=== PATIENT | male | born 1945 | race Caucasian/White ===

== ENCOUNTER 2018-08-19 17:16 | Inpatient (IN) | payer MEDICARE ==
[~2018-08-19] VITALS: Ht 182.9 cm; Wt 86.2 kg
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
[2018-08-19 18:08] LABS: BASO # 0.1 x10^3/uL (0.0-0.2); BASO % 1 % (0-3); EOS # 0.1 x10^3/uL (0.0-0.7); EOS % 1 % (0-3); HEMATOCRIT 44.3 % (39.0-53.0); LYMPH # 1.6 x10^3/uL (1.0-4.8); LYMPH % 19 % (24-48); MEAN CORPUSCULAR HEMOGLOBIN 30 pg (25-35); MEAN CORPUSCULAR HGB CONC 34 g/dL (31-37); MEAN CORPUSCULAR VOLUME 89 fL (79-100); MONO # 0.7 x10^3/uL (0.0-1.1); MONO % 8 % (0-9); NEUT # 6.1 x10^3uL (1.8-7.7); NEUT % 71 % (31-73); PLATELET COUNT 290 x10^3/uL (140-400); RED BLOOD COUNT 4.99 x10^6/uL (4.30-5.70); RED CELL DISTRIBUTION WIDTH 13.3 % (11.5-14.5); WHITE BLOOD COUNT 8.6 x10^3/uL (4.0-11.0)
[2018-08-19 18:24] LABS: ALBUMIN/GLOBULIN RATIO 1.1 (1.0-1.7); CALCIUM 9.5 mg/dL (8.5-10.1); CREATININE 2.9 mg/dL (0.7-1.3); GFR 21.6; MAGNESIUM 2.6 mg/dL (1.8-2.4); POTASSIUM 3.6 mmol/L (3.5-5.1); TOTAL BILIRUBIN 0.4 mg/dL (0.2-1.0); TOTAL PROTEIN 7.6 g/dL (6.4-8.2)
[2018-08-19 18:51] LABS: CLARITY,URINE CLOUDY; COLOR,URINE YELLOW; GLUCOSE,URINE NEG (NEG)
[2018-08-19 18:52] LABS: BACTERIA,URINE 0 /HPF (0-FEW); BILIRUBIN,URINE NEG (NEG); NITRITE,URINE NEG (NEG); RBC,URINE OCC /HPF (0-2); SQUAMOUS EPITHELIAL CELL,UR OCC /LPF; UROBILINOGEN,URINE 0.2 mg/dL (0.2 mg/dL); WBC,URINE 0 /HPF (0-4)
[2018-08-19] MEDS ORDERED: ACETAMINOPHEN 325 MG TABLET PO PRN (20:15)
[2018-08-19] MEDS ORDERED: MAGNESIUM HYDROXIDE 2,400 MG/30 ML ORAL.SUSP. PO PRN (20:15)
[2018-08-19] MEDS ORDERED: MAG HYDROX/AL HYDROX/SIMETH 30 ML ORAL.SUSP PO PRN (20:15)
[2018-08-19] MEDS ORDERED: METHYL SALICYLATE/MENTHOL TOPICAL OINTMENT 29GM TUBE. TP PRN (20:15)
[2018-08-19 21:41] VITALS: BP 92/64
[2018-08-19] MEDS ORDERED: TRIA1CAP3 PO (22:06)
[2018-08-19] MEDS ORDERED: MEMA10TA20 PO (22:06)
[2018-08-19] MEDS ORDERED: OMEG-168 PO (22:06)
[2018-08-19] MEDS ORDERED: CITA20TA9 PO (22:06)
[2018-08-19] MEDS ORDERED: AMLO10TA8 PO (22:06)
[2018-08-19] MEDS ORDERED: PANT40TA3 PO (22:06)
[2018-08-19] MEDS ORDERED: ALPR1TAB6 PO (22:06)
[2018-08-19] MEDS ORDERED: RISP0.5T24 PO (22:06)
[2018-08-19] MEDS ORDERED: MELO7.5T29 PO (22:06)
[2018-08-19] MEDS ORDERED: CHOL400D6 PO (22:06)
[2018-08-19] MEDS ORDERED: ZOLP5TAB PO (22:06)
[2018-08-19] MEDS ORDERED: DONE10TA61 PO (22:06)
[2018-08-19] MEDS ORDERED: LOSA100T14 PO (22:06)
[2018-08-19] MEDS ORDERED: ALPRAZolam 0.5 MG TABLET PO PRN (22:30)
[2018-08-19] MEDS: risperiDONE 0.5 MG TABLET. PO SCH (22:43)
[2018-08-20 06:36] VITALS: BP 114/73
[2018-08-20 08:12] LABS: BASO % 0 % (0-3); EOS # 0.2 x10^3/uL (0.0-0.7); EOS % 3 % (0-3); HEMATOCRIT 43.7 % (39.0-53.0); HEMOGLOBIN 14.7 g/dL (13.0-17.5); LYMPH # 1.8 x10^3/uL (1.0-4.8); LYMPH % 23 % (24-48); MEAN CORPUSCULAR HEMOGLOBIN 30 pg (25-35); MEAN CORPUSCULAR HGB CONC 34 g/dL (31-37); MEAN CORPUSCULAR VOLUME 89 fL (79-100); MONO # 0.7 x10^3/uL (0.0-1.1); MONO % 9 % (0-9); NEUT # 4.9 x10^3uL (1.8-7.7); NEUT % 64 % (31-73); PLATELET COUNT 258 x10^3/uL (140-400); RED CELL DISTRIBUTION WIDTH 13.4 % (11.5-14.5); WHITE BLOOD COUNT 7.6 x10^3/uL (4.0-11.0)
[2018-08-20 08:16] LABS: CALCIUM 9.1 mg/dL (8.5-10.1); CREATININE 2.7 mg/dL (0.7-1.3); GFR 23.4; POTASSIUM 3.9 mmol/L (3.5-5.1)
[2018-08-20] MEDS: amLODIPine BESYLATE 10 MG TABLET PO SCH (11:19)
[2018-08-20] MEDS: CITALOPRAM 20 MG TABLET. PO SCH (11:19)
[2018-08-20] MEDS: TRIAMTERENE/HCTZ 37.5/25MG TABLET. PO SCH (11:19)
[2018-08-20] MEDS: MEMANTINE 10 MG TABLET. PO SCH (11:19)
[2018-08-20] MEDS: PANTOPRAZOLE 40 MG TABLET. PO SCH (11:30)
[2018-08-20] MEDS: OMEGA-3 FATTY ACIDS/FISH OIL 1,000 MG CAPSULE. PO SCH (11:31)
[2018-08-20] MEDS: CHOLECALCIFEROL (VITAMIN D3) 1,000 UNIT TABLET PO SCH (11:31)
[2018-08-20 13:36] LABS: THYROID STIM HORMONE (TSH) 1.74 uIU/mL (0.358-3.740)
[2018-08-20 16:20] VITALS: BP 109/74
[2018-08-20] MEDS ORDERED: risperiDONE 0.5 MG TABLET. PO PRN (17:15)
[2018-08-20] MEDS: MELOXICAM 7.5 MG TABLET PO SCH ×2 (18:00→20:29)
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
[2018-08-20] MEDS: risperiDONE 1 MG TABLET. PO SCH (20:27)
[2018-08-20] MEDS: DIVALPROEX 125 MG CAP.SPRINK PO SCH ×2 (20:27→21:00)
[2018-08-20] MEDS: risperiDONE 0.5 MG TABLET. PO SCH (20:28)
[2018-08-20] MEDS: DONEPEZIL HCL 10 MG TABLET PO SCH ×2 (20:28→21:00)
[2018-08-20] MEDS: LOSARTAN 50 MG TABLET. PO SCH ×2 (20:29→21:00)
[2018-08-20] MEDS: ZOLPIDEM 5 MG TABLET. PO SCH (20:29)
[2018-08-20 21:07] LABS: THYROXINE 5.9 ug/dL (4.5-12.0)
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
[2018-08-21 01:07] LABS: HEMOGLOBIN A1C 5.5 % (4.8-5.6)
[2018-08-21] MEDS: MEMANTINE 10 MG TABLET. PO SCH (09:01)
[2018-08-21] MEDS: amLODIPine BESYLATE 10 MG TABLET PO SCH (09:01)
[2018-08-21] MEDS: TRIAMTERENE/HCTZ 37.5/25MG TABLET. PO SCH (09:01)
[2018-08-21] MEDS: OMEGA-3 FATTY ACIDS/FISH OIL 1,000 MG CAPSULE. PO SCH (09:01)
[2018-08-21] MEDS: CITALOPRAM 20 MG TABLET. PO SCH (09:01)
[2018-08-21] MEDS: PANTOPRAZOLE 40 MG TABLET. PO SCH (09:02)
[2018-08-21] MEDS: CHOLECALCIFEROL (VITAMIN D3) 1,000 UNIT TABLET PO SCH (09:02)
[2018-08-21] MEDS: risperiDONE 1 MG TABLET. PO SCH ×2 (09:02→19:16)
[2018-08-21 17:27] VITALS: BP 130/72
[2018-08-21] MEDS: MELOXICAM 7.5 MG TABLET PO SCH (19:01)
[2018-08-21] MEDS: risperiDONE 0.5 MG TABLET. PO SCH (19:15)
[2018-08-21] MEDS: DONEPEZIL HCL 10 MG TABLET PO SCH (19:15)
[2018-08-21 19:16] VITALS: BP 130/72
[2018-08-21] MEDS: ZOLPIDEM 5 MG TABLET. PO SCH (19:16)
[2018-08-21] MEDS: DIVALPROEX 125 MG CAP.SPRINK PO SCH (19:16)
[2018-08-21] MEDS: LOSARTAN 50 MG TABLET. PO SCH (19:16)
[2018-08-22] MEDS ORDERED: MAG355OR17 PO (06:47)
[2018-08-22] MEDS ORDERED: ACET325T9 PO (06:47)
[2018-08-22] MEDS ORDERED: MAGN2400 PO (06:48)
[2018-08-22] MEDS ORDERED: METH29OI TP (06:48)
[2018-08-22] MEDS ORDERED: DIVA125C2 PO (06:51)
[2018-08-22] MEDS ORDERED: RISP1TAB43 PO (06:52)
[2018-08-22] MEDS ORDERED: RISP0.5T24 PO (06:53)
[2018-08-22 07:24] LABS: BASO # 0.1 x10^3/uL (0.0-0.2); BASO % 0 % (0-3); EOS % 0 % (0-3); HEMATOCRIT 41.1 % (39.0-53.0); HEMOGLOBIN 13.7 g/dL (13.0-17.5); LYMPH # 1.2 x10^3/uL (1.0-4.8); LYMPH % 6 % (24-48); MEAN CORPUSCULAR HEMOGLOBIN 30 pg (25-35); MEAN CORPUSCULAR HGB CONC 33 g/dL (31-37); MEAN CORPUSCULAR VOLUME 89 fL (79-100); MONO # 1.2 x10^3/uL (0.0-1.1); MONO % 6 % (0-9); NEUT # 17.2 x10^3uL (1.8-7.7); NEUT % 88 % (31-73); PLATELET COUNT 236 x10^3/uL (140-400); RED CELL DISTRIBUTION WIDTH 12.9 % (11.5-14.5); WHITE BLOOD COUNT 19.6 x10^3/uL (4.0-11.0)
[2018-08-22 07:43] LABS: ALBUMIN 3.6 g/dL (3.4-5.0); ALBUMIN/GLOBULIN RATIO 1.1 (1.0-1.7); CALCIUM 9.2 mg/dL (8.5-10.1); CREATININE 3.2 mg/dL (0.7-1.3); GFR 19.2; POTASSIUM 4.3 mmol/L (3.5-5.1); TOTAL BILIRUBIN 0.6 mg/dL (0.2-1.0); TOTAL PROTEIN 6.8 g/dL (6.4-8.2)
[2018-08-22 09:26] LABS: % BANDS 2 % (0-9); % BASOS 1 % (0-3); % LYMPHS 10 % (24-48); % MONOS 7 % (0-10); % SEGS 80 % (35-66); PLT ESTIMATE ADEQUATE (ADEQUATE)
--- NOTE | 2018-08-22 12:38 | EKG ---
[address] [address] Test Date: 2018-08-19 Test Time: 17:47:46 Pat Name: INDERJIT PIERRE Department: Room: [address] [place] [address] Gender: M Snipper: DIANE : 1945 Requested By: SINCERE CHAWLA Order Number: [id number] Reading MD: Giovanni Cruz MD Measurements Intervals Beggs Rate: 74 P: 43 NH: 170 QRS: -1 QRSD: 84 T: 29 QT: 378 QTc: 425 Interpretive Statements SINUS RHYTHM Electronically Signed On 08-27-2018 23:23:12 CDT by Giovanni Cruz MD
[2018-08-22] MEDS ORDERED: VANCOMYCIN PER PHARMACY MC PRN (14:00)
[2018-08-22] MEDS ORDERED: PIP/TAZO PER PHARMACY MC PRN (14:00)
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
[2018-09-23] MEDS ORDERED: AMOX500C PO (14:13)
[2018-09-23] MEDS ORDERED: VANC125C3 PO (14:13)
[2018-09-23] MEDS ORDERED: LORA-254 PO (14:13)
== END 2018-08-22 06:45 | disposition short-term general hospital (02) | DRG 56 ==
LOC: EDBD → ER 17:16 → GEROPSY 19:28
PROVIDERS: ADMIT Psychiatry & Neurology Psychiatry; ATTEND Psychiatry & Neurology Psychiatry
DX: G30.9 Alzheimer's disease, unspecified (principal); N17.0 Acute kidney failure with tubular necrosis; F02.81 Dementia in other diseases classified elsewhere, unspecified severity, with behavioral disturbance; R94.4 Abnormal results of kidney function studies; N18.3 Chronic kidney disease, stage 3 (moderate); E78.00 Pure hypercholesterolemia, unspecified; E78.5 Hyperlipidemia, unspecified; F41.1 Generalized anxiety disorder; I12.9 Hypertensive chronic kidney disease with stage 1 through stage 4 chronic kidney disease, or unspecified chronic kidney disease; R32 Unspecified urinary incontinence; Z79.899 Other long term (current) drug therapy; K21.9 Gastro-esophageal reflux disease without esophagitis; F32.9 Major depressive disorder, single episode, unspecified; G89.29 Other chronic pain
CPT/HCPCS: 36415; 80048; 80053; 80061; 81001; 82306; 82550; 83036; 83540; 83550; 83605; 83735; 84436; 84443; 84480; 84484; 85007; 85025; 86592; 93005; P9612; 99285-25

== ENCOUNTER 2018-08-22 06:50 | Inpatient (IN) | payer MEDICARE ==
[~2018-08-22] VITALS: Ht 182.9 cm; Wt 95.8 kg
[2018-08-22 06:34] VITALS: BP 103/68
[~2018-08-22 06:50] MED LIST: ACET325T9 PO; ALPR1TAB6 PO; AMLO10TA8 PO; CHOL400D6 PO; CITA20TA9 PO; DONE10TA61 PO; LOSA100T14 PO; MAG355OR17 PO; MAGN2400 PO; MELO7.5T29 PO; MEMA10TA20 PO; METH29OI TP; OMEG-168 PO; PANT40TA3 PO; RISP0.5T24 PO; TRIA1CAP3 PO; ZOLP5TAB PO
[2018-08-22] MEDS ORDERED: DIVA125C2 PO (06:51)
[2018-08-22] MEDS ORDERED: RISP1TAB43 PO (06:52)
[2018-08-22] MEDS ORDERED: RISP0.5T24 PO (06:53)
[2018-08-22] MEDS: IV NORMAL SALINE 1,000ML 1,000 ML IV SCH ×2 (08:23→15:02)
[2018-08-22 10:05] VITALS: BP 95/76
[2018-08-22] MEDS ORDERED: MAG HYDROX/AL HYDROX/SIMETH 30 ML ORAL.SUSP PO PRN (14:15)
[2018-08-22] MEDS ORDERED: METHYL SALICYLATE/MENTHOL TOPICAL OINTMENT 29GM TUBE. TP PRN (14:15)
[2018-08-22] MEDS ORDERED: MAGNESIUM HYDROXIDE 2,400 MG/30 ML ORAL.SUSP. PO PRN (14:15)
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
--- NOTE | 2018-08-22 14:27 | RAD ---
EXAM: Chest, single view. HISTORY: Mental status changes. Leukocytosis. COMPARISON: None. FINDINGS: A frontal view of the chest is obtained. There is mild increased interstitial opacity. There is lingular atelectasis or scarring. There is no consolidation, pleural effusion or pneumothorax. The heart is normal in size. IMPRESSION: 1. Mild increased interstitial opacity without jessi congestion or consolidated infiltrate. 2. Suspected linear lingular atelectasis or scarring. Electronically signed by: Janet Cifuentes MD (08/22/2018 2:25 PM) [id number]
[2018-08-22 14:55] LABS: CREATININE 2.7 mg/dL (0.7-1.3); GFR 23.4; POTASSIUM 4.1 mmol/L (3.5-5.1)
[2018-08-22] MEDS ORDERED: VANCOMYCIN 2 GM in IV NORMAL SALINE 500ML 500 ML IV ONE (15:00)
[2018-08-22 15:04] VITALS: BP 98/64
[2018-08-22] MEDS ORDERED: VANCOMYCIN PER PHARMACY MC PRN (15:45)
[2018-08-22] MEDS ORDERED: PIP/TAZO PER PHARMACY MC PRN (15:45)
[2018-08-22] MEDS: diphenhydrAMINE 50 MG/ML VIAL IVP PRN (17:47)
[2018-08-22] MEDS: PIPERACILLIN/TAZOBACTAM 2.25 GM in IV NORMAL SALINE 50ML 50 ML IV SCH (18:03)
[2018-08-22 19:45] VITALS: BP 122/75
[2018-08-22] MEDS ORDERED: DIVALPROEX 125 MG CAP.SPRINK PO SCH (21:00)
[2018-08-22] MEDS: LACTOBACILLUS RHAMNOSUS GG 1 CAPSULE. PO SCH (21:02)
[2018-08-22] MEDS: DONEPEZIL HCL 10 MG TABLET PO SCH (21:02)
[2018-08-22] MEDS: ACETAMINOPHEN 325 MG TABLET PO PRN (21:02)
[2018-08-23] MEDS: IV NORMAL SALINE 1,000ML 1,000 ML IV SCH ×4 (00:28→17:51)
[2018-08-23] MEDS: PIPERACILLIN/TAZOBACTAM 2.25 GM in IV NORMAL SALINE 50ML 50 ML IV SCH ×5 (00:29→23:44)
[2018-08-23 06:11] VITALS: BP 123/78
[2018-08-23 06:26] LABS: HEMATOCRIT 36.1 % (39.0-53.0); HEMOGLOBIN 12.2 g/dL (13.0-17.5); RED BLOOD COUNT 4.05 x10^6/uL (4.30-5.70); RED CELL DISTRIBUTION WIDTH 13.5 % (11.5-14.5); WHITE BLOOD COUNT 14.9 x10^3/uL (4.0-11.0)
[2018-08-23 06:33] LABS: ALBUMIN 2.8 g/dL (3.4-5.0); ALBUMIN/GLOBULIN RATIO 0.9 (1.0-1.7); CALCIUM 8.5 mg/dL (8.5-10.1); GFR 33.1; POTASSIUM 3.8 mmol/L (3.5-5.1); TOTAL BILIRUBIN 0.5 mg/dL (0.2-1.0)
[2018-08-23] MEDS ORDERED: CITALOPRAM 20 MG TABLET. PO SCH (09:00)
[2018-08-23] MEDS: MEMANTINE 10 MG TABLET. PO SCH (10:32)
[2018-08-23] MEDS: OMEGA-3 FATTY ACIDS/FISH OIL 1,000 MG CAPSULE. PO SCH (10:32)
[2018-08-23] MEDS: PANTOPRAZOLE 40 MG TABLET. PO SCH (10:32)
[2018-08-23] MEDS: CHOLECALCIFEROL (VITAMIN D3) 1,000 UNIT TABLET PO SCH (10:32)
[2018-08-23] MEDS: LACTOBACILLUS RHAMNOSUS GG 1 CAPSULE. PO SCH ×2 (10:32→20:07)
[2018-08-23 11:22] VITALS: BP 121/83
[2018-08-23 14:38] VITALS: BP 124/72
[2018-08-23] MEDS ORDERED: VANCOMYCIN 1.25 GM in IV NORMAL SALINE 250ML 250 ML IV SCH (15:00)
[2018-08-23 19:35] VITALS: BP 117/76
[2018-08-23] MEDS: ACETAMINOPHEN 325 MG TABLET PO PRN (20:07)
[2018-08-23] MEDS: DONEPEZIL HCL 10 MG TABLET PO SCH (20:08)
--- NOTE | 2018-08-23 21:57 | PN ---
DATE: 08/23/2018 SUBJECTIVE: The patient is resting flat in bed, in no apparent distress. He is awake, alert, but he does not really respond, very combative and aggressive. Sometimes cursing and refusing to talk. The nursing staff stated that his came and fed him this afternoon; however, he spent most of time in bed, although he is more than capable of walking. His lab work showed that his white cell count is down from 20,000-14,900. His chemistry also showed that his kidney function is improving. In fact, his creatinine came down from 3.2 when he was at [facility] down to 2 mg this morning. So far, his blood culture is still pending. We cannot get a urine sample because he is very combative and aggressive. ASSESSMENT AND PLAN: 1. Sepsis with systolic pressure only 70 mmHg, leukocytosis. 2. Acute on chronic kidney injury. Creatinine has risen from 2-3.2. We will continue with the IV fluid, continue with IV antibiotic empirically. I will await result of culture and sensitivity. I will also arrange for him to have SCDs for DVT prophylaxis and consult physical and occupational therapy to evaluate and treat. He has been heavily sedated and I did cut down his risperidone as well as Depakote. KIP LEDESMA MD DR: BULMARO/carter JOB#: [id number] / [id number]
[2018-08-24] MEDS: IV NORMAL SALINE 1,000ML 1,000 ML IV SCH ×4 (03:30→20:00)
[2018-08-24] MEDS: PIPERACILLIN/TAZOBACTAM 2.25 GM in IV NORMAL SALINE 50ML 50 ML IV SCH (05:16)
[2018-08-24 06:23] VITALS: BP 150/78
[2018-08-24 06:47] LABS: HEMATOCRIT 36.8 % (39.0-53.0); HEMOGLOBIN 12.6 g/dL (13.0-17.5); RED BLOOD COUNT 4.13 x10^6/uL (4.30-5.70); RED CELL DISTRIBUTION WIDTH 13.3 % (11.5-14.5); WHITE BLOOD COUNT 7.9 x10^3/uL (4.0-11.0)
[2018-08-24 06:53] LABS: CALCIUM 8.5 mg/dL (8.5-10.1); CREATININE 1.6 mg/dL (0.7-1.3); GFR 42.8; POTASSIUM 3.7 mmol/L (3.5-5.1)
[2018-08-24] MEDS: OMEGA-3 FATTY ACIDS/FISH OIL 1,000 MG CAPSULE. PO SCH (08:16)
[2018-08-24] MEDS: CHOLECALCIFEROL (VITAMIN D3) 1,000 UNIT TABLET PO SCH (08:16)
[2018-08-24] MEDS: LACTOBACILLUS RHAMNOSUS GG 1 CAPSULE. PO SCH ×2 (08:16→19:28)
[2018-08-24] MEDS: PANTOPRAZOLE 40 MG TABLET. PO SCH (08:16)
[2018-08-24] MEDS: MEMANTINE 10 MG TABLET. PO SCH (08:16)
[2018-08-24 10:49] VITALS: BP 148/82
[2018-08-24] MEDS: PIPERACILLIN/TAZOBACTAM 3.375 GM in IV NORMAL SALINE 50ML 50 ML IV SCH ×2 (11:38→19:28)
[2018-08-24 14:28] VITALS: BP 150/88
[2018-08-24] MEDS ORDERED: POLYVINYL ALCOHOL/POVIDONE/PF OPHTH SOLUTION DROPERETTE. OU PRN (14:30)
--- NOTE | 2018-08-24 17:32 | PDOC ---
PROGRESS NOTES Diagnosis DIAGNOSIS Sirs versus sepsis Acute on chronic kidney disease Acute encephalopathy Assessment Sirs versus dehydration-improving -We have not been able to obtain a urine sample yet -Placing condom catheter for sample -Labs in the morning -Continue antibiotics -Continue IV fluids AK I on CKD -Continue IV fluids -Continue checking BMP in the morning Acute encephalopathy with Severe schizophrenia-appears to be improving -Continue monitoring -Continue psych meds PT/OT Prophylaxis Lovenox Subjective The patient currently is laying in bed, not very interactive, does not appear in distress. Objective Vital Signs Date Time Temp Pulse Resp B/P (MAP) Pulse Ox O2 Delivery O2 Flow Rate FiO2 08/24/18 14:28 97.5 84 20 150/88 (108) 99 Room Air Intake and Output 08/24/18 06:59 Intake Total 2715.61 ml Balance 2715.61 ml Intake Oral 920 ml IV Total 1795.61 ml # Voids 5 # Bowel Movements 1 Physical Exam Awake, not oriented, not very interactive PERRLA, EOMI Regular rate and rhythm Clear to auscultation bilateral Positive bowel sounds, nontender, nondistended Cranial nerves appear intact Review of Relevant I have reviewed the following items hung (where applicable) has been applied. Labs Laboratory Tests Test 08/22/18 21:00 08/23/18 06:03 08/24/18 06:14 Nasal Screen MRSA (PCR) Negative (Negative) White Blood Count 14.9 x10^3/uL (4.0-11.0) 7.9 x10^3/uL (4.0-11.0) Red Blood Count 4.05 x10^6/uL (4.30-5.70) 4.13 x10^6/uL (4.30-5.70) Hemoglobin 12.2 g/dL (13.0-17.5) 12.6 g/dL (13.0-17.5) Hematocrit 36.1 % (39.0-53.0) 36.8 % (39.0-53.0) Mean Corpuscular Volume 89 fL (79-100) 89 fL (79-100) Mean Corpuscular Hemoglobin 30 pg (25-35) 30 pg (25-35) Mean Corpuscular Hemoglobin Concent 34 g/dL (31-37) 34 g/dL (31-37) Red Cell Distribution Width 13.5 % (11.5-14.5) 13.3 % (11.5-14.5) Platelet Count 210 x10^3/uL (140-400) 219 x10^3/uL (140-400) Sodium Level 139 mmol/L (136-145) 140 mmol/L (136-145) Potassium Level 3.8 mmol/L (3.5-5.1) 3.7 mmol/L (3.5-5.1) Chloride Level 105 mmol/L (98-107) 105 mmol/L (98-107) Carbon Dioxide Level 27 mmol/L (21-32) 28 mmol/L (21-32) Anion Gap 7 (6-14) 7 (6-14) Blood Urea Nitrogen 30 mg/dL (8-26) 17 mg/dL (8-26) Creatinine 2.0 mg/dL (0.7-1.3) 1.6 mg/dL (0.7-1.3) Estimated GFR (Cockcroft-Gault) 33.1 42.8 BUN/Creatinine Ratio 15 (6-20) Glucose Level 99 mg/dL (70-99) 92 mg/dL (70-99) Calcium Level 8.5 mg/dL (8.5-10.1) 8.5 mg/dL (8.5-10.1) Total Bilirubin 0.5 mg/dL (0.2-1.0) Aspartate Amino Transf (AST/SGOT) 21 U/L (15-37) Alanine Aminotransferase (ALT/SGPT) 16 U/L (16-63) Alkaline Phosphatase 67 U/L (46-116) Total Protein 6.0 g/dL (6.4-8.2) Albumin 2.8 g/dL (3.4-5.0) Albumin/Globulin Ratio 0.9 (1.0-1.7) Microbiology 08/22/18 Blood Culture - Preliminary, Resulted NO GROWTH AFTER 2 DAYS... Medications Current Medications Sodium Chloride 1,000 ml @ 150 mls/hr Q6H40M IV Last administered on at 11:38; Start 08/22/18 at 08:00 Acetaminophen (Tylenol) 650 mg PRN Q6HRS PRN PO PAIN / TEMP Last administered on 08/23/18at 20:07; Start 08/22/18 at 14:15 Citalopram Hydrobromide (CeleXA) 20 mg DAILY PO ; Start 08/23/18 at 09:00; Stop 08/23/18 at 09:45; Status DC Multi-Ingredient Ointment (Analgesic [place]) 1 geraldo QIDPRN PRN TP MUSCLE PAIN; Start 08/22/18 at 14:15 Vitamin D (Vitamin D3) 500 unit DAILY PO Last administered on 08/24/18at 08:16; Start 08/23/18 at 09:00 Divalproex Sodium (Depakote Sprinkles) 500 mg HS PO ; Start 08/22/18 at 21:00; Stop 08/22/18 at 21:00; Status DC Donepezil HCl (Aricept) 10 mg HS PO Last administered on 08/23/18at 20:08; Start 08/22/18 at 21:00 Al Hydroxide/Mg Hydroxide (Mylanta Plus Xs) 15 ml QIDPRN PRN PO DYSPEPSIA; Start 08/22/18 at 14:15 Magnesium Hydroxide (Milk Of Magnesia) 2,400 mg PRN QHS PRN PO CONSTIPATION; Start 08/22/18 at 14:15 Memantine (Namenda) 10 mg DAILY PO Last administered on 08/24/18at 08:16; Start 08/23/18 at 09:00 Fish Oil (Fish Oil) 1,000 mg DAILY PO Last administered on 08/24/18at 08:16; Start 08/23/18 at 09:00 Pantoprazole Sodium (Protonix) 40 mg DAILY PO Last administered on 08/24/18at 08 :16; Start 08/23/18 at 09:00 Vancomycin HCl 2 gm/Sodium Chloride 500 ml @ 250 mls/hr 1X ONCE IV Last administered on 08/22/18at 15:03; Start 08/22/18 at 15:00; Stop 08/22/18 at 16:59 ; Status DC Piperacillin Sod/ Tazobactam Sod 2.25 gm/Sodium Chloride 50 ml @ 100 mls/hr Q6HRS IV Last administered on 08/24/18at 05:16; Start 08/22/18 at 18:00; Stop at 09:41; Status DC Lactobacillus Rhamnosus (Culturelle) 1 cap BID PO Last administered on at 08:16; Start 08/22/18 at 21:00 Vancomycin HCl 1.25 gm/Sodium Chloride 250 ml @ 167 mls/hr Q24H IV ; Start at 15:00; Stop 08/23/18 at 15:00; Status DC Vancomycin HCl (Vancomycin Trough Level) 1 each 1X ONCE MC ; Start 08/24/18 at 14:30; Stop 08/24/18 at 14:30; Status DC Vancomycin HCl (Vanco Per Pharmacy) 1 each PRN DAILY PRN MC SEE COMMENTS Last administered on 08/22/18at 15:39; Start 08/22/18 at 15:45; Stop 08/23/18 at 09:54 ; Status DC Piperacillin Sod/ Tazobactam Sod (Zosyn Per Pharmacy) 1 each PRN DAILY PRN MC SEE COMMENTS Last administered on 08/22/18at 15:39; Start 08/22/18 at 15:45 Diphenhydramine HCl (Benadryl) 25 mg PRN Q6HRS PRN IVP ITCHING Last administered on 08/22/18at 17:47; Start 08/22/18 at 17:45 Linezolid 300 ml @ 300 mls/hr Q12H IV Last administered on 08/24/18at 09:38; Start 08/23/18 at 10:00 Olanzapine (ZyPREXA IM) 2.5 mg PRN Q4HRS PRN IM AGITATION; Start 08/23/18 at 19 :00 Piperacillin Sod/ Tazobactam Sod 3.375 gm/Sodium Chloride 50 ml @ 100 mls/hr Q6HRS IV Last administered on 08/24/18at 11:38; Start 08/24/18 at 12:00 Artificial Tears (Refresh Classic) 1 drop TID PRN OU DRY EYE; Start 08/24/18 at 14:30 Active Scripts Active Reported Risperdal (Risperidone) 0.5 Mg Tablet 0.5 Mg PO PRN Q6HRS PRN Risperdal (Risperidone) 1 Mg Tablet 1 Mg PO BID Depakote Sprinkle (Divalproex Sodium) 125 Mg Cap.sprink 500 Mg PO HS Analgesic Fyffe (Methyl Salicylate/Menthol) 28 Gm Oint...g. 1 Geraldo TP QIDPRN PRN Milk Of Magnesia (Magnesium Hydroxide) 2,400 Mg/10 Ml Oral.susp 2,400 Mg PO HS PRN Advanced Antacid Liquid (Mag Hydrox/Al Hydrox/Simeth) 355 Ml Oral.susp 15 Ml PO QIDPRN PRN Tylenol (Acetaminophen) 325 Mg Tablet 2 Tab PO PRN Q6HRS PRN Vitamin D (Cholecalciferol (Vitamin D3)) 400 Unit/1 Ml Drops 400 Unit PO DAILY Triamterene-Hctz 37.5-25 Mg Cp (Triamterene/Hydrochlorothiazid) 1 Each Capsule 1 Each PO DAILY Risperdal (Risperidone) 0.5 Mg Tablet 0.5 Mg PO QHS Protonix (Pantoprazole Sodium) 40 Mg Tablet.dr 40 Mg PO DAILY Memantine HCl 10 Mg Tablet 10 Mg PO DAILY Meloxicam 7.5 Mg Tablet 7.5 Mg PO QEVNG Losartan Potassium 100 Mg Tablet 100 Mg PO QHS Celexa (Citalopram Hydrobromide) 20 Mg Tablet 20 Mg PO DAILY Fish Oil 1,200 Mg Softgel ([place]-3S/Dha/Epa/Fish Oil) 1 Each Capsule 1 Each PO DAILY Aricept (Donepezil Hcl) 10 Mg Tablet 10 Mg PO QHS Amlodipine Besylate 10 Mg Tablet 10 Mg PO DAILY Ambien (Zolpidem Tartrate) 5 Mg Tablet 5 Mg PO QHS Alprazolam 1 Mg Tablet 1 Mg PO PRN Q24HRS PRN Vitals/I & O Vital Sign - Last 24 Hours 08/23/18 08/23/18 08/24/18 08/24/18 19:35 20:00 00:16 06:23 Temp 97.8 98.5 Pulse 91 77 75 Resp 20 20 B/P (MAP) 117/76 (90) 150/78 (102) Pulse Ox 99 98 O2 Delivery Room Air Room Air Room Air 08/24/18 08/24/18 08/24/18 09:00 10:49 14:28 Temp 97.7 97.5 Pulse 91 84 Resp 20 20 B/P (MAP) 148/82 (104) 150/88 (108) Pulse Ox 98 99 O2 Delivery Room Air Room Air Room Air Intake and Output 08/23/18 08/23/18 08/24/18 14:59 22:59 06:59 Intake Total 340 ml 2255.61 ml 120 ml Balance 340 ml 2255.61 ml 120 ml CRISTHIAN MEDELLIN MD Aug 24, 2018 17:32
[2018-08-24] MEDS: OLANZapine IM 10 MG VIAL. IM PRN (18:17)
[2018-08-24] MEDS: diphenhydrAMINE 50 MG/ML VIAL IVP PRN (19:23)
--- NOTE | 2018-08-24 19:23 | PN ---
DATE: 08/24/2018 SUBJECTIVE: The patient was seen today on the medical floor. The patient apparently was on the psych unit and he was sent here because of having hypotension. The patient unable to give much information since admission, he is constantly staring and almost nonverbal and staff reports that he has been combative with the staff. The patient is not able to follow directions. The patient also had an elevated white cell count of 20,000. His creatinine level dropped from 3.2 to 2 at this time. The patient was treated for sepsis and also for [id number] kidney injury. MEDICATIONS: The patient's current medications include olanzapine 2.5 mg q. 4 hours p.r.n., Namenda 10 mg daily, Aricept 10 mg at night. MENTAL STATUS EXAMINATION: The patient continues to be on 1:1. The patient is able to make eye contact, smiles, and when asked questions, he turns his face away and he does not know how to respond. The patient also appears to be responding to internal stimuli. He is not sure whether he has been having auditory hallucinations. The patient is nervous, restless, and having some blunting of affect. The patient gets upset when he is around people, "I don't know how to respond." ASSESSMENT: AXIS I: Neurocognitive disorder, most likely Alzheimer versus Lewy body. AXIS II: None. AXIS III: Hypertension, hyperlipidemia, gastroesophageal reflux disease, chronic kidney disease stage 3. PLAN: The patient will continue with the treatment on the medical floor. We will reevaluate whether he needs to be readmitted to the [facility]. Continue with the current medications. CHAIM BAUTISTA MD DR: BALJIT/carter JOB#: [id number] / [id number]
[2018-08-24] MEDS: DONEPEZIL HCL 10 MG TABLET PO SCH (19:29)
[2018-08-24 19:45] VITALS: BP 122/51
[2018-08-25] MEDS: PIPERACILLIN/TAZOBACTAM 3.375 GM in IV NORMAL SALINE 50ML 50 ML IV SCH ×4 (01:11→17:27)
[2018-08-25 05:31] VITALS: BP 152/85
[2018-08-25] MEDS: IV NORMAL SALINE 1,000ML 1,000 ML IV SCH ×4 (06:33→17:34)
[2018-08-25 07:21] LABS: CALCIUM 8.4 mg/dL (8.5-10.1); CREATININE 1.7 mg/dL (0.7-1.3); GFR 39.9; HEMATOCRIT 34.9 % (39.0-53.0); HEMOGLOBIN 11.8 g/dL (13.0-17.5); MAGNESIUM 1.8 mg/dL (1.8-2.4); POTASSIUM 3.7 mmol/L (3.5-5.1); RED BLOOD COUNT 3.93 x10^6/uL (4.30-5.70); RED CELL DISTRIBUTION WIDTH 13.2 % (11.5-14.5); WHITE BLOOD COUNT 7.1 x10^3/uL (4.0-11.0)
[2018-08-25] MEDS: OMEGA-3 FATTY ACIDS/FISH OIL 1,000 MG CAPSULE. PO SCH (09:25)
[2018-08-25] MEDS: CHOLECALCIFEROL (VITAMIN D3) 1,000 UNIT TABLET PO SCH (09:25)
[2018-08-25] MEDS: MEMANTINE 10 MG TABLET. PO SCH (09:26)
[2018-08-25] MEDS: LACTOBACILLUS RHAMNOSUS GG 1 CAPSULE. PO SCH ×2 (09:29→22:00)
[2018-08-25 11:00] VITALS: BP 145/83
--- NOTE | 2018-08-25 12:28 | PDOC ---
PROGRESS NOTES Diagnosis DRAGON Sirs versus dehydration-improving -We have not been able to obtain a urine sample yet -Labs in the morning -Continue antibiotics--likely can change to PO tomorrow -Continue IV fluids AK I on CKD---stable -Continue IV fluids Acute encephalopathy with Severe schizophrenia-appears to be improving -Continue monitoring -Continue psych meds PT/OT DISP- likely discharge back to [facility] tomorrow once able to take admission Prophylaxis Lovenox Subjective The patient currently is laying in bed, not very interactive, does not appear in distress. No F/C Objective Vital Signs Date Time Temp Pulse Resp B/P (MAP) Pulse Ox O2 Delivery O2 Flow Rate FiO2 08/25/18 05:31 77 20 152/85 (107) 94 Room Air 08/24/18 19:45 98.6 Intake and Output 08/25/18 06:59 Intake Total 6747.73 ml Balance 6747.73 ml Intake Oral 1360 ml IV Total 5387.73 ml # Voids 7 # Bowel Movements 1 Physical Exam Awake, not oriented, not very interactive PERRLA, EOMI Regular rate and rhythm Clear to auscultation bilateral Positive bowel sounds, nontender, nondistended Cranial nerves appear intact Review of Relevant I have reviewed the following items hung (where applicable) has been applied. Labs Laboratory Tests Test 08/24/18 06:14 08/25/18 06:50 White Blood Count 7.9 x10^3/uL (4.0-11.0) 7.1 x10^3/uL (4.0-11.0) Red Blood Count 4.13 x10^6/uL (4.30-5.70) 3.93 x10^6/uL (4.30-5.70) Hemoglobin 12.6 g/dL (13.0-17.5) 11.8 g/dL (13.0-17.5) Hematocrit 36.8 % (39.0-53.0) 34.9 % (39.0-53.0) Mean Corpuscular Volume 89 fL (79-100) 89 fL (79-100) Mean Corpuscular Hemoglobin 30 pg (25-35) 30 pg (25-35) Mean Corpuscular Hemoglobin Concent 34 g/dL (31-37) 34 g/dL (31-37) Red Cell Distribution Width 13.3 % (11.5-14.5) 13.2 % (11.5-14.5) Platelet Count 219 x10^3/uL (140-400) 257 x10^3/uL (140-400) Sodium Level 140 mmol/L (136-145) 142 mmol/L (136-145) Potassium Level 3.7 mmol/L (3.5-5.1) 3.7 mmol/L (3.5-5.1) Chloride Level 105 mmol/L (98-107) 109 mmol/L (98-107) Carbon Dioxide Level 28 mmol/L (21-32) 25 mmol/L (21-32) Anion Gap 7 (6-14) 8 (6-14) Blood Urea Nitrogen 17 mg/dL (8-26) 11 mg/dL (8-26) Creatinine 1.6 mg/dL (0.7-1.3) 1.7 mg/dL (0.7-1.3) Estimated GFR (Cockcroft-Gault) 42.8 39.9 Glucose Level 92 mg/dL (70-99) 89 mg/dL (70-99) Calcium Level 8.5 mg/dL (8.5-10.1) 8.4 mg/dL (8.5-10.1) Magnesium Level 1.8 mg/dL (1.8-2.4) Microbiology 08/22/18 Blood Culture - Preliminary, Resulted NO GROWTH AFTER 3 DAYS... Medications Current Medications Sodium Chloride 1,000 ml @ 150 mls/hr Q6H40M IV Last administered on at 06:33; Start 08/22/18 at 08:00 Acetaminophen (Tylenol) 650 mg PRN Q6HRS PRN PO PAIN / TEMP Last administered on 08/23/18at 20:07; Start 08/22/18 at 14:15 Citalopram Hydrobromide (CeleXA) 20 mg DAILY PO ; Start 08/23/18 at 09:00; Stop 08/23/18 at 09:45; Status DC Multi-Ingredient Ointment (Analgesic Delta) 1 geraldo QIDPRN PRN TP MUSCLE PAIN; Start 08/22/18 at 14:15 Vitamin D (Vitamin D3) 500 unit DAILY PO Last administered on 08/25/18at 09:25; Start 08/23/18 at 09:00 Divalproex Sodium (Depakote Sprinkles) 500 mg HS PO ; Start 08/22/18 at 21:00; Stop 08/22/18 at 21:00; Status DC Donepezil HCl (Aricept) 10 mg HS PO Last administered on 08/24/18at 19:29; Start 08/22/18 at 21:00 Al Hydroxide/Mg Hydroxide (Mylanta Plus Xs) 15 ml QIDPRN PRN PO DYSPEPSIA; Start 08/22/18 at 14:15 Magnesium Hydroxide (Milk Of Magnesia) 2,400 mg PRN QHS PRN PO CONSTIPATION; Start 08/22/18 at 14:15 Memantine (Namenda) 10 mg DAILY PO Last administered on 08/25/18at 09:26; Start 08/23/18 at 09:00 Fish Oil (Fish Oil) 1,000 mg DAILY PO Last administered on 08/25/18at 09:25; Start 08/23/18 at 09:00 Pantoprazole Sodium (Protonix) 40 mg DAILY PO Last administered on 08/24/18at 08 :16; Start 08/23/18 at 09:00; Stop 08/25/18 at 09:43; Status DC Vancomycin HCl 2 gm/Sodium Chloride 500 ml @ 250 mls/hr 1X ONCE IV Last administered on 08/22/18at 15:03; Start 08/22/18 at 15:00; Stop 08/22/18 at 16:59 ; Status DC Piperacillin Sod/ Tazobactam Sod 2.25 gm/Sodium Chloride 50 ml @ 100 mls/hr Q6HRS IV Last administered on 08/24/18at 05:16; Start 08/22/18 at 18:00; Stop at 09:41; Status DC Lactobacillus Rhamnosus (Culturelle) 1 cap BID PO Last administered on at 09:29; Start 08/22/18 at 21:00 Vancomycin HCl 1.25 gm/Sodium Chloride 250 ml @ 167 mls/hr Q24H IV ; Start at 15:00; Stop 08/23/18 at 15:00; Status DC Vancomycin HCl (Vancomycin Trough Level) 1 each 1X ONCE MC ; Start 08/24/18 at 14:30; Stop 08/24/18 at 14:30; Status DC Vancomycin HCl (Vanco Per Pharmacy) 1 each PRN DAILY PRN MC SEE COMMENTS Last administered on 08/22/18at 15:39; Start 08/22/18 at 15:45; Stop 08/23/18 at 09:54 ; Status DC Piperacillin Sod/ Tazobactam Sod (Zosyn Per Pharmacy) 1 each PRN DAILY PRN MC SEE COMMENTS Last administered on 08/22/18at 15:39; Start 08/22/18 at 15:45 Diphenhydramine HCl (Benadryl) 25 mg PRN Q6HRS PRN IVP ITCHING Last administered on 08/24/18at 19:23; Start 08/22/18 at 17:45 Linezolid 300 ml @ 300 mls/hr Q12H IV Last administered on 08/25/18at 10:00; Start 08/23/18 at 10:00 Olanzapine (ZyPREXA IM) 2.5 mg PRN Q4HRS PRN IM AGITATION Last administered on 08/24/18at 18:17; Start 08/23/18 at 19:00 Piperacillin Sod/ Tazobactam Sod 3.375 gm/Sodium Chloride 50 ml @ 100 mls/hr Q6HRS IV Last administered on 08/25/18at 12:12; Start 08/24/18 at 12:00 Artificial Tears (Refresh Classic) 1 drop TID PRN OU DRY EYE Last administered on 08/25/18at 09:27; Start 08/24/18 at 14:30 Lansoprazole (Prevacid) 30 mg DAILYAC PO ; Start 08/26/18 at 07:30 Active Scripts Active Reported Risperdal (Risperidone) 0.5 Mg Tablet 0.5 Mg PO PRN Q6HRS PRN Risperdal (Risperidone) 1 Mg Tablet 1 Mg PO BID Depakote Sprinkle (Divalproex Sodium) 125 Mg Cap.sprink 500 Mg PO HS Analgesic Delta (Methyl Salicylate/Menthol) 28 Gm Oint...g. 1 Geraldo TP QIDPRN PRN Milk Of Magnesia (Magnesium Hydroxide) 2,400 Mg/10 Ml Oral.susp 2,400 Mg PO HS PRN Advanced Antacid Liquid (Mag Hydrox/Al Hydrox/Simeth) 355 Ml Oral.susp 15 Ml PO QIDPRN PRN Tylenol (Acetaminophen) 325 Mg Tablet 2 Tab PO PRN Q6HRS PRN Vitamin D (Cholecalciferol (Vitamin D3)) 400 Unit/1 Ml Drops 400 Unit PO DAILY Triamterene-Hctz 37.5-25 Mg Cp (Triamterene/Hydrochlorothiazid) 1 Each Capsule 1 Each PO DAILY Risperdal (Risperidone) 0.5 Mg Tablet 0.5 Mg PO QHS Protonix (Pantoprazole Sodium) 40 Mg Tablet.dr 40 Mg PO DAILY Memantine HCl 10 Mg Tablet 10 Mg PO DAILY Meloxicam 7.5 Mg Tablet 7.5 Mg PO QEVNG Losartan Potassium 100 Mg Tablet 100 Mg PO QHS Celexa (Citalopram Hydrobromide) 20 Mg Tablet 20 Mg PO DAILY Fish Oil 1,200 Mg Softgel ([place]-3S/Dha/Epa/Fish Oil) 1 Each Capsule 1 Each PO DAILY Aricept (Donepezil Hcl) 10 Mg Tablet 10 Mg PO QHS Amlodipine Besylate 10 Mg Tablet 10 Mg PO DAILY Ambien (Zolpidem Tartrate) 5 Mg Tablet 5 Mg PO QHS Alprazolam 1 Mg Tablet 1 Mg PO PRN Q24HRS PRN Vitals/I & O Vital Sign - Last 24 Hours 08/24/18 08/24/18 08/24/18 08/25/18 14:28 19:45 20:00 05:31 Temp 97.5 98.6 Pulse 84 84 77 Resp 20 20 20 B/P (MAP) 150/88 (108) 122/51 (74) 152/85 (107) Pulse Ox 99 99 94 O2 Delivery Room Air Room Air Room Air Room Air Intake and Output 08/24/18 08/24/18 08/25/18 14:59 22:59 06:59 Intake Total 2090 ml 620 ml 4037.73 ml Balance 2090 ml 620 ml 4037.73 ml CRISTHIAN MEDELLIN MD Aug 25, 2018 12:28
[2018-08-25 16:10] VITALS: BP 145/78
[2018-08-25] MEDS: diphenhydrAMINE 50 MG/ML VIAL IVP PRN ×2 (17:31→23:01)
[2018-08-25] MEDS ORDERED: HALOPERIDOL LACT 5 MG/ML VIAL. ONE (18:52)
[2018-08-25] MEDS ORDERED: HALOPERIDOL LACT 5 MG/ML VIAL. IM PRN (19:15)
[2018-08-25 20:06] VITALS: BP 145/82
[2018-08-25] MEDS: DONEPEZIL HCL 10 MG TABLET PO SCH (22:00)
[2018-08-25] MEDS: OLANZapine IM 10 MG VIAL. IM PRN (22:20)
[2018-08-26] MEDS: PIPERACILLIN/TAZOBACTAM 3.375 GM in IV NORMAL SALINE 50ML 50 ML IV SCH ×3 (01:35→11:29)
[2018-08-26] MEDS: CIPROFLOXACIN 0.3% OPHTH SOLUTION 2.5ML BOTTLE. OU SCH ×8 (02:06→14:00)
[2018-08-26 06:30] VITALS: BP 159/92
[2018-08-26] MEDS: IV NORMAL SALINE 1,000ML 1,000 ML IV SCH ×2 (06:36→11:30)
[2018-08-26] MEDS ORDERED: LANSOPRAZOLE 30 MG TAB.RAP.DR PO SCH (07:30)
[2018-08-26] MEDS: LACTOBACILLUS RHAMNOSUS GG 1 CAPSULE. PO SCH (11:24)
[2018-08-26] MEDS: CHOLECALCIFEROL (VITAMIN D3) 1,000 UNIT TABLET PO SCH (11:25)
[2018-08-26] MEDS: OMEGA-3 FATTY ACIDS/FISH OIL 1,000 MG CAPSULE. PO SCH (11:25)
[2018-08-26] MEDS: MEMANTINE 10 MG TABLET. PO SCH (11:25)
[2018-08-26 14:00] VITALS: BP 141/85
[2018-08-26] MEDS ORDERED: LACT1CAP2 PO (18:00)
[2018-08-26] MEDS ORDERED: CARB15DR3 EACHEYE (18:00)
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
== END 2018-08-26 14:24 | DRG 871 ==
LOC: 1 SOUTH 06:50 → EDBD 06:50 → 1 SOUTH 15:27
PROVIDERS: ADMIT Internal Medicine; ATTEND Family Medicine
DX: A41.9 Sepsis, unspecified organism (principal); N17.0 Acute kidney failure with tubular necrosis; E87.2 Acidosis; F02.81 Dementia in other diseases classified elsewhere, unspecified severity, with behavioral disturbance; G93.40 Encephalopathy, unspecified; I95.9 Hypotension, unspecified; N18.3 Chronic kidney disease, stage 3 (moderate); E78.5 Hyperlipidemia, unspecified; F20.9 Schizophrenia, unspecified; F41.1 Generalized anxiety disorder; G30.9 Alzheimer's disease, unspecified; I12.9 Hypertensive chronic kidney disease with stage 1 through stage 4 chronic kidney disease, or unspecified chronic kidney disease; K21.9 Gastro-esophageal reflux disease without esophagitis
CPT/HCPCS: 36415; 71045; 80048; 80053; 83605; 83735; 85027; 87040; 87641; J1200; J1630; J2020; J2543; J3370; J3490; J7040; J7030

== ENCOUNTER 2018-08-26 12:59 | Inpatient (IN) | payer MEDICARE ==
[~2018-08-26] VITALS: Ht 182.9 cm; Wt 104.1 kg
[~2018-08-26 12:59] MED LIST changes: +DIVA125C2 PO; +RISP1TAB43 PO
[2018-08-26 15:06] VITALS: BP 141/85
[2018-08-26 17:40] VITALS: BP 158/89
[2018-08-26] MEDS ORDERED: METHYL SALICYLATE/MENTHOL TOPICAL OINTMENT 29GM TUBE. TP PRN (17:45)
[2018-08-26] MEDS: CIPROFLOXACIN 0.3% OPHTH SOLUTION 2.5ML BOTTLE. OU SCH ×3 (18:00→22:00)
[2018-08-26] MEDS ORDERED: CARB15DR3 EACHEYE (18:00)
[2018-08-26] MEDS ORDERED: LACT1CAP2 PO (18:00)
[2018-08-26] MEDS ORDERED: MAGNESIUM HYDROXIDE 2,400 MG/30 ML ORAL.SUSP. PO PRN (18:15)
[2018-08-26] MEDS ORDERED: MAG HYDROX/AL HYDROX/SIMETH 30 ML ORAL.SUSP PO PRN ×2 (18:15)
[2018-08-26] MEDS ORDERED: POLYVINYL ALCOHOL/POVIDONE/PF OPHTH SOLUTION DROPERETTE. OU PRN (18:15)
[2018-08-26] MEDS: LACTOBACILLUS RHAMNOSUS GG 1 CAPSULE. PO SCH (20:45)
[2018-08-26] MEDS: DONEPEZIL HCL 10 MG TABLET PO SCH (20:45)
--- NOTE | 2018-08-26 23:06 | PDOC ---
Exam Note: Maurice Note: Please also refer to the separate dictated note~for this date of service dictated separately. Discussed the patient with Nursing staff reviewed the chart.~Reviewed interim history and current functioning. Reviewed vital signs,~ Labs/ Radiology~and current medications noted below. Continue current treatment with the changes noted in the dictated addendum note Assessment: Vital Signs: Vital Signs Date Time Temp Pulse Resp B/P (MAP) Pulse Ox O2 Delivery O2 Flow Rate FiO2 08/26/18 17:40 98.0 69 18 158/89 (112) 97 Current Medications: Meds: Current Medications Olanzapine (ZyPREXA ZYDIS) 2.5 mg PRN Q2HR PRN PO AGITATION/PSYCHOSIS; Start at 17:00 Ciprofloxacin 1 drop Q2HR OU ; Start 08/26/18 at 18:00 Acetaminophen (Tylenol) 650 mg PRN Q6HRS PRN PO PAIN / TEMP; Start 08/26/18 at 17:45 Multi-Ingredient Ointment (Analgesic Outlook) 1 geraldo QIDPRN PRN TP MUSCLE PAIN; Start 08/26/18 at 17:45 Donepezil HCl (Aricept) 10 mg QHS PO Last administered on 08/26/18at 20:45; Start 08/26/18 at 21:00 Al Hydroxide/Mg Hydroxide (Mylanta Plus Xs) 30 ml QIDPRN PRN PO DYSPEPSIA; Start 08/26/18 at 18:15; Stop 08/26/18 at 18:15; Status DC Memantine (Namenda) 10 mg DAILY PO ; Start 08/27/18 at 09:00 Artificial Tears (Refresh Classic) 1 drop PRN TID PRN OU DRY EYE; Start at 18:15 Vitamin D (Vitamin D3) 500 unit DAILY PO ; Start 08/27/18 at 09:00 Lactobacillus Rhamnosus (Culturelle) 1 cap BID PO Last administered on at 20:45; Start 08/26/18 at 21:00 Magnesium Hydroxide (Milk Of Magnesia) 2,400 mg PRN QHS PRN PO CONSTIPATION; Start 08/26/18 at 18:15 Fish Oil (Fish Oil) 1,000 mg DAILY PO ; Start 08/27/18 at 09:00 Pantoprazole Sodium (Protonix) 40 mg DAILY PO ; Start 08/27/18 at 09:00 Al Hydroxide/Mg Hydroxide (Mylanta Plus Xs) 15 ml QIDPRN PRN PO DYSPEPSIA; Start 08/26/18 at 18:15 Active Scripts Active Reported Refresh Optive Eye Drops (Carboxymethylcellulos/Glycerin) 15 Ml Drops 1 Drop EACHEYE TID PRN PRN Acidophilus (Lactobacillus Acidophilus) 1 Each Capsule 1 Each PO BID 7 Days Analgesic Outlook (Methyl Salicylate/Menthol) 28 Gm Oint...g. 1 Geraldo TP QIDPRN PRN Milk Of Magnesia (Magnesium Hydroxide) 2,400 Mg/10 Ml Oral.susp 2,400 Mg PO HS PRN Advanced Antacid Liquid (Mag Hydrox/Al Hydrox/Simeth) 355 Ml Oral.susp 15 Ml PO QIDPRN PRN Tylenol (Acetaminophen) 325 Mg Tablet 2 Tab PO PRN Q6HRS PRN Vitamin D (Cholecalciferol (Vitamin D3)) 400 Unit/1 Ml Drops 400 Unit PO DAILY Protonix (Pantoprazole Sodium) 40 Mg Tablet.dr 40 Mg PO DAILY Memantine HCl 10 Mg Tablet 10 Mg PO DAILY Fish Oil 1,200 Mg Softgel ([place]-3S/Dha/Epa/Fish Oil) 1 Each Capsule 1 Each PO DAILY Aricept (Donepezil Hcl) 10 Mg Tablet 10 Mg PO QHS I have reviewed the current psychotropics carefully including drug interactions. Risk benefit ratio favors no change other than as noted in my dictated progress note. Diagnosis: Problems: (1) Dehydration (2) Hypotension ZACK FERREIRA MD Aug 26, 2018 23:06
[2018-08-27] MEDS: CIPROFLOXACIN 0.3% OPHTH SOLUTION 2.5ML BOTTLE. OU SCH ×12 (02:00→22:00)
[2018-08-27 06:27] VITALS: BP 149/84
[2018-08-27] MEDS: PANTOPRAZOLE 40 MG TABLET. PO SCH (07:38)
[2018-08-27] MEDS: CHOLECALCIFEROL (VITAMIN D3) 1,000 UNIT TABLET PO SCH (07:38)
[2018-08-27] MEDS: OMEGA-3 FATTY ACIDS/FISH OIL 1,000 MG CAPSULE. PO SCH (07:38)
[2018-08-27] MEDS: MEMANTINE 10 MG TABLET. PO SCH (07:39)
[2018-08-27] MEDS: LACTOBACILLUS RHAMNOSUS GG 1 CAPSULE. PO SCH ×2 (07:39→19:51)
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
[2018-08-27 16:30] VITALS: BP 137/73
[2018-08-27] MEDS: DONEPEZIL HCL 10 MG TABLET PO SCH (19:51)
--- NOTE | 2018-08-27 22:59 | PDOC ---
Exam Note: Maurice Note: Please also refer to the separate dictated note~for this date of service dictated separately.~Patient seen individually. Discussed the patient with Nursing staff reviewed the chart.~Reviewed interim history and current functioning. Reviewed vital signs,~Labs/ Radiology~and current medications noted below. Continue current treatment with the changes noted in the dictated addendum note Assessment: Vital Signs: Vital Signs Date Time Temp Pulse Resp B/P (MAP) Pulse Ox O2 Delivery O2 Flow Rate FiO2 08/27/18 16:30 97.4 74 16 137/73 (94) 97 Room Air I&O Intake and Output 08/27/18 07:00 Intake Total 360 ml Balance 360 ml Intake Oral 360 ml Current Medications: Meds: Current Medications Olanzapine (ZyPREXA ZYDIS) 2.5 mg PRN Q2HR PRN PO AGITATION/PSYCHOSIS Last administered on 08/27/18 21:07; Start 08/26/18 at 17:00 Ciprofloxacin 1 drop Q2HR OU Last administered on 08/27/18 14:58; Start at 18:00 Acetaminophen (Tylenol) 650 mg PRN Q6HRS PRN PO PAIN / TEMP; Start 08/26/18 at 17:45 Multi-Ingredient Ointment (Analgesic [place]) 1 geraldo QIDPRN PRN TP MUSCLE PAIN; Start 08/26/18 at 17:45 Donepezil HCl (Aricept) 10 mg QHS PO Last administered on 08/27/18 19:51; Start 08/26/18 at 21:00 Al Hydroxide/Mg Hydroxide (Mylanta Plus Xs) 30 ml QIDPRN PRN PO DYSPEPSIA; Start 08/26/18 at 18:15; Stop 08/26/18 at 18:15; Status DC Memantine (Namenda) 10 mg DAILY PO Last administered on 08/27/18 07:39; Start 08/27/18 at 09:00 Artificial Tears (Refresh Classic) 1 drop PRN TID PRN OU DRY EYE; Start at 18:15 Vitamin D (Vitamin D3) 500 unit DAILY PO Last administered on 08/27/18 07:38; Start 08/27/18 at 09:00 Lactobacillus Rhamnosus (Culturelle) 1 cap BID PO Last administered on 3/19/ 19at 19:51; Start 08/26/18 at 21:00 Magnesium Hydroxide (Milk Of Magnesia) 2,400 mg PRN QHS PRN PO CONSTIPATION; Start 08/26/18 at 18:15 Fish Oil (Fish Oil) 1,000 mg DAILY PO Last administered on 08/27/18at 07:38; Start 08/27/18 at 09:00 Pantoprazole Sodium (Protonix) 40 mg DAILY PO Last administered on 08/27/18at 07 :38; Start 08/27/18 at 09:00 Al Hydroxide/Mg Hydroxide (Mylanta Plus Xs) 15 ml QIDPRN PRN PO DYSPEPSIA; Start 08/26/18 at 18:15 Divalproex Sodium (Depakote Sprinkles) 125 mg BIDWMEALS PO ; Start 08/28/18 at 08:00 Active Scripts Active Reported Refresh Optive Eye Drops (Carboxymethylcellulos/Glycerin) 15 Ml Drops 1 Drop EACHEYE TID PRN PRN Acidophilus (Lactobacillus Acidophilus) 1 Each Capsule 1 Each PO BID 7 Days Analgesic [place] (Methyl Salicylate/Menthol) 28 Gm Oint...g. 1 Geraldo TP QIDPRN PRN Milk Of Magnesia (Magnesium Hydroxide) 2,400 Mg/10 Ml Oral.susp 2,400 Mg PO HS PRN Advanced Antacid Liquid (Mag Hydrox/Al Hydrox/Simeth) 355 Ml Oral.susp 15 Ml PO QIDPRN PRN Tylenol (Acetaminophen) 325 Mg Tablet 2 Tab PO PRN Q6HRS PRN Vitamin D (Cholecalciferol (Vitamin D3)) 400 Unit/1 Ml Drops 400 Unit PO DAILY Protonix (Pantoprazole Sodium) 40 Mg Tablet.dr 40 Mg PO DAILY Memantine HCl 10 Mg Tablet 10 Mg PO DAILY Fish Oil 1,200 Mg Softgel ([place]-3S/Dha/Epa/Fish Oil) 1 Each Capsule 1 Each PO DAILY Aricept (Donepezil Hcl) 10 Mg Tablet 10 Mg PO QHS I have reviewed the current psychotropics carefully including drug interactions. Risk benefit ratio favors no change other than as noted in my dictated progress note. Diagnosis: Problems: (1) Dehydration (2) Hypotension (3) Major neurocognitive disorder (4) Alzheimer's dementia (5) Vascular dementia with behavioral disturbance (6) Vascular dementia with delusions (7) Vascular dementia with depressed mood (8) Anxiety disorder (9) Impulse control disorder ZACK FERREIRA MD Aug 27, 2018 22:59
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
[2018-08-28] MEDS: CIPROFLOXACIN 0.3% OPHTH SOLUTION 2.5ML BOTTLE. OU SCH ×10 (02:00→18:00)
[2018-08-28 06:17] VITALS: BP 167/81
[2018-08-28] MEDS: LACTOBACILLUS RHAMNOSUS GG 1 CAPSULE. PO SCH ×2 (08:35→20:47)
[2018-08-28] MEDS: CHOLECALCIFEROL (VITAMIN D3) 1,000 UNIT TABLET PO SCH (08:35)
[2018-08-28] MEDS: MEMANTINE 10 MG TABLET. PO SCH (08:35)
[2018-08-28] MEDS: PANTOPRAZOLE 40 MG TABLET. PO SCH (08:35)
[2018-08-28] MEDS: OMEGA-3 FATTY ACIDS/FISH OIL 1,000 MG CAPSULE. PO SCH (09:00)
[2018-08-28] MEDS: DIVALPROEX 125 MG CAP.SPRINK PO SCH ×2 (09:01→16:28)
[2018-08-28 16:42] VITALS: BP 171/99
[2018-08-28] MEDS: ACETAMINOPHEN 325 MG TABLET PO PRN (16:58)
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
[2018-08-28] MEDS: DONEPEZIL HCL 10 MG TABLET PO SCH (20:47)
--- NOTE | 2018-08-28 22:53 | PDOC ---
Exam Note: Maurice Note: Please also refer to the separate dictated note~for this date of service dictated separately.~Patient seen individually. Discussed the patient with Nursing staff reviewed the chart.~Reviewed interim history and current functioning. Reviewed vital signs,~Labs/ Radiology~and current medications noted below. Continue current treatment with the changes noted in the dictated addendum note Assessment: Vital Signs: Vital Signs Date Time Temp Pulse Resp B/P (MAP) Pulse Ox O2 Delivery O2 Flow Rate FiO2 08/28/18 16:42 98.3 86 20 171/99 (123) 97 08/27/18 16:30 Room Air I&O Intake and Output 08/28/18 07:00 Intake Total 1440 ml Balance 1440 ml Intake Oral 1440 ml # Bowel Movements 1 Current Medications: Meds: Current Medications Olanzapine (ZyPREXA ZYDIS) 2.5 mg PRN Q2HR PRN PO AGITATION/PSYCHOSIS Last administered on 08/28/18 16:24; Start 08/26/18 at 17:00 Ciprofloxacin 1 drop Q2HR OU Last administered on 08/28/18 16:28; Start at 18:00; Stop 08/28/18 at 18:20; Status DC Acetaminophen (Tylenol) 650 mg PRN Q6HRS PRN PO PAIN / TEMP Last administered on 08/28/18 16:58; Start 08/26/18 at 17:45 Multi-Ingredient Ointment (Analgesic [place]) 1 geraldo QIDPRN PRN TP MUSCLE PAIN; Start 08/26/18 at 17:45 Donepezil HCl (Aricept) 10 mg QHS PO Last administered on 08/28/18at 20:47; Start 08/26/18 at 21:00 Al Hydroxide/Mg Hydroxide (Mylanta Plus Xs) 30 ml QIDPRN PRN PO DYSPEPSIA; Start 08/26/18 at 18:15; Stop 08/26/18 at 18:15; Status DC Memantine (Namenda) 10 mg DAILY PO Last administered on 08/28/18 08:35; Start 08/27/18 at 09:00 Artificial Tears (Refresh Classic) 1 drop PRN TID PRN OU DRY EYE; Start at 18:15 Vitamin D (Vitamin D3) 500 unit DAILY PO Last administered on 3/20/19at 08:35; Start 08/27/18 at 09:00 Lactobacillus Rhamnosus (Culturelle) 1 cap BID PO Last administered on at 20:47; Start 08/26/18 at 21:00 Magnesium Hydroxide (Milk Of Magnesia) 2,400 mg PRN QHS PRN PO CONSTIPATION; Start 08/26/18 at 18:15 Fish Oil (Fish Oil) 1,000 mg DAILY PO Last administered on 08/27/18at 07:38; Start 08/27/18 at 09:00 Pantoprazole Sodium (Protonix) 40 mg DAILY PO Last administered on 08/28/18at 08 :35; Start 08/27/18 at 09:00 Al Hydroxide/Mg Hydroxide (Mylanta Plus Xs) 15 ml QIDPRN PRN PO DYSPEPSIA; Start 08/26/18 at 18:15 Divalproex Sodium (Depakote Sprinkles) 125 mg BIDWMEALS PO Last administered on 08/28/18at 16:28; Start 08/28/18 at 08:00 Amlodipine Besylate (Norvasc) 5 mg DAILY PO ; Start 08/29/18 at 09:00 Active Scripts Active Reported Refresh Optive Eye Drops (Carboxymethylcellulos/Glycerin) 15 Ml Drops 1 Drop EACHEYE TID PRN PRN Acidophilus (Lactobacillus Acidophilus) 1 Each Capsule 1 Each PO BID 7 Days Analgesic [place] (Methyl Salicylate/Menthol) 28 Gm Oint...g. 1 Geraldo TP QIDPRN PRN Milk Of Magnesia (Magnesium Hydroxide) 2,400 Mg/10 Ml Oral.susp 2,400 Mg PO HS PRN Advanced Antacid Liquid (Mag Hydrox/Al Hydrox/Simeth) 355 Ml Oral.susp 15 Ml PO QIDPRN PRN Tylenol (Acetaminophen) 325 Mg Tablet 2 Tab PO PRN Q6HRS PRN Vitamin D (Cholecalciferol (Vitamin D3)) 400 Unit/1 Ml Drops 400 Unit PO DAILY Protonix (Pantoprazole Sodium) 40 Mg Tablet.dr 40 Mg PO DAILY Memantine HCl 10 Mg Tablet 10 Mg PO DAILY Fish Oil 1,200 Mg Softgel ([place]-3S/Dha/Epa/Fish Oil) 1 Each Capsule 1 Each PO DAILY Aricept (Donepezil Hcl) 10 Mg Tablet 10 Mg PO QHS I have reviewed the current psychotropics carefully including drug interactions. Risk benefit ratio favors no change other than as noted in my dictated progress note. Diagnosis: Problems: (1) Dehydration (2) Hypotension (3) Anxiety disorder (4) Impulse control disorder (5) Vascular dementia with depressed mood (6) Vascular dementia with delusions (7) Alzheimer's dementia (8) Vascular dementia with behavioral disturbance (9) Major neurocognitive disorder ZACK FERREIRA MD Aug 28, 2018 22:53
[2018-08-29 06:16] VITALS: BP 154/93
[2018-08-29] MEDS: OMEGA-3 FATTY ACIDS/FISH OIL 1,000 MG CAPSULE. PO SCH (07:58)
[2018-08-29] MEDS: DIVALPROEX 125 MG CAP.SPRINK PO SCH ×2 (07:58→16:34)
[2018-08-29] MEDS: CHOLECALCIFEROL (VITAMIN D3) 1,000 UNIT TABLET PO SCH (07:59)
[2018-08-29] MEDS: PANTOPRAZOLE 40 MG TABLET. PO SCH (07:59)
[2018-08-29] MEDS: MEMANTINE 10 MG TABLET. PO SCH (07:59)
[2018-08-29] MEDS: LACTOBACILLUS RHAMNOSUS GG 1 CAPSULE. PO SCH ×2 (07:59→20:15)
[2018-08-29] MEDS: amLODIPine BESYLATE 5 MG TABLET PO SCH (08:00)
[2018-08-29 10:02] LABS: ALBUMIN 3.3 g/dL (3.4-5.0); ALBUMIN/GLOBULIN RATIO 0.9 (1.0-1.7); ALK PHOS 76 U/L (46-116); ALT (SGPT) 29 U/L (16-63); ANION GAP 8 (6-14); AST (SGOT) 24 U/L (15-37); BLOOD UREA NITROGEN 13 mg/dL (8-26); BUN/CREATININE RATIO 8 (6-20); CALCIUM 9.4 mg/dL (8.5-10.1); CARBON DIOXIDE 30 mmol/L (21-32); CHLORIDE 106 mmol/L (98-107); CREATININE 1.6 mg/dL (0.7-1.3); GFR 42.8; GLUCOSE 91 mg/dL (70-99); POTASSIUM 3.6 mmol/L (3.5-5.1); SODIUM 144 mmol/L (136-145); TOTAL BILIRUBIN 0.3 mg/dL (0.2-1.0)
[2018-08-29 10:10] LABS: VAL ACID 9 mcg/mL (50-100)
[2018-08-29 10:24] LABS: BASO % 0 % (0-3); EOS # 0.3 x10^3/uL (0.0-0.7); EOS % 3 % (0-3); HEMATOCRIT 40.7 % (39.0-53.0); HEMOGLOBIN 13.7 g/dL (13.0-17.5); LYMPH # 1.1 x10^3/uL (1.0-4.8); LYMPH % 10 % (24-48); MEAN CORPUSCULAR HEMOGLOBIN 30 pg (25-35); MEAN CORPUSCULAR HGB CONC 34 g/dL (31-37); MEAN CORPUSCULAR VOLUME 90 fL (79-100); MONO # 0.7 x10^3/uL (0.0-1.1); MONO % 6 % (0-9); NEUT # 8.5 x10^3uL (1.8-7.7); NEUT % 80 % (31-73); PLATELET COUNT 348 x10^3/uL (140-400); RED BLOOD COUNT 4.54 x10^6/uL (4.30-5.70); RED CELL DISTRIBUTION WIDTH 13.6 % (11.5-14.5); WHITE BLOOD COUNT 10.6 x10^3/uL (4.0-11.0)
[2018-08-29 16:06] VITALS: BP 164/91
[2018-08-29] MEDS: DONEPEZIL HCL 10 MG TABLET PO SCH (20:15)
--- NOTE | 2018-08-29 22:38 | PDOC ---
Exam Note: Maurice Note: Please also refer to the separate dictated note~for this date of service dictated separately.~Patient seen individually. Discussed the patient with Nursing staff reviewed the chart.~Reviewed interim history and current functioning. Reviewed vital signs,~Labs/ Radiology~and current medications noted below. Continue current treatment with the changes noted in the dictated addendum note Assessment: Vital Signs: Vital Signs Date Time Temp Pulse Resp B/P (MAP) Pulse Ox O2 Delivery O2 Flow Rate FiO2 08/29/18 16:06 98.4 98 20 164/91 (115) 97 Room Air I&O Intake and Output 08/29/18 07:00 Intake Total 1620 ml Balance 1620 ml Intake Oral 1620 ml # Bowel Movements 2 Labs: Laboratory Tests Test 08/29/18 09:37 White Blood Count 10.6 x10^3/uL (4.0-11.0) Red Blood Count 4.54 x10^6/uL (4.30-5.70) Hemoglobin 13.7 g/dL (13.0-17.5) Hematocrit 40.7 % (39.0-53.0) Mean Corpuscular Volume 90 fL (79-100) Mean Corpuscular Hemoglobin 30 pg (25-35) Mean Corpuscular Hemoglobin Concent 34 g/dL (31-37) Red Cell Distribution Width 13.6 % (11.5-14.5) Platelet Count 348 x10^3/uL (140-400) Neutrophils (%) (Auto) 80 % (31-73) H Lymphocytes (%) (Auto) 10 % (24-48) L Monocytes (%) (Auto) 6 % (0-9) Eosinophils (%) (Auto) 3 % (0-3) Basophils (%) (Auto) 0 % (0-3) Neutrophils # (Auto) 8.5 x10^3uL (1.8-7.7) H Lymphocytes # (Auto) 1.1 x10^3/uL (1.0-4.8) Monocytes # (Auto) 0.7 x10^3/uL (0.0-1.1) Eosinophils # (Auto) 0.3 x10^3/uL (0.0-0.7) Basophils # (Auto) 0.0 x10^3/uL (0.0-0.2) Sodium Level 144 mmol/L (136-145) Potassium Level 3.6 mmol/L (3.5-5.1) Chloride Level 106 mmol/L (98-107) Carbon Dioxide Level 30 mmol/L (21-32) Anion Gap 8 (6-14) Blood Urea Nitrogen 13 mg/dL (8-26) Creatinine 1.6 mg/dL (0.7-1.3) H Estimated GFR (Cockcroft-Gault) 42.8 BUN/Creatinine Ratio 8 (6-20) Glucose Level 91 mg/dL (70-99) Calcium Level 9.4 mg/dL (8.5-10.1) Total Bilirubin 0.3 mg/dL (0.2-1.0) Aspartate Amino Transferase (AST) 24 U/L (15-37) Alanine Aminotransferase (ALT) 29 U/L (16-63) Alkaline Phosphatase 76 U/L (46-116) Total Protein 7.0 g/dL (6.4-8.2) Albumin 3.3 g/dL (3.4-5.0) L Albumin/Globulin Ratio 0.9 (1.0-1.7) L Valproic Acid Level 9 mcg/mL (50-100) L Valproic Acid Last Dose Date 08/29/2018 Valproic Acid Last Dose Time 0900 Current Medications: Meds: Current Medications Olanzapine (ZyPREXA ZYDIS) 2.5 mg PRN Q2HR PRN PO AGITATION/PSYCHOSIS Last administered on 08/28/18 16:24; Start 08/26/18 at 17:00 Ciprofloxacin 1 drop Q2HR OU Last administered on 08/28/18at 16:28; Start at 18:00; Stop 08/28/18 at 18:20; Status DC Acetaminophen (Tylenol) 650 mg PRN Q6HRS PRN PO PAIN / TEMP Last administered on 08/28/18 16:58; Start 08/26/18 at 17:45 Multi-Ingredient Ointment (Analgesic [place]) 1 geraldo QIDPRN PRN TP MUSCLE PAIN; Start 08/26/18 at 17:45 Donepezil HCl (Aricept) 10 mg QHS PO Last administered on 08/29/18at 20:15; Start 08/26/18 at 21:00 Al Hydroxide/Mg Hydroxide (Mylanta Plus Xs) 30 ml QIDPRN PRN PO DYSPEPSIA; Start 08/26/18 at 18:15; Stop 08/26/18 at 18:15; Status DC Memantine (Namenda) 10 mg DAILY PO Last administered on 08/29/18at 07:59; Start 08/27/18 at 09:00 Artificial Tears (Refresh Classic) 1 drop PRN TID PRN OU DRY EYE; Start at 18:15 Vitamin D (Vitamin D3) 500 unit DAILY PO Last administered on 08/29/18at 07:59; Start 08/27/18 at 09:00 Lactobacillus Rhamnosus (Culturelle) 1 cap BID PO Last administered on at 20:15; Start 08/26/18 at 21:00 Magnesium Hydroxide (Milk Of Magnesia) 2,400 mg PRN QHS PRN PO CONSTIPATION; Start 08/26/18 at 18:15 Fish Oil (Fish Oil) 1,000 mg DAILY PO Last administered on 08/29/18at 07:58; Start 08/27/18 at 09:00 Pantoprazole Sodium (Protonix) 40 mg DAILY PO Last administered on 08/29/18at 07 :59; Start 08/27/18 at 09:00 Al Hydroxide/Mg Hydroxide (Mylanta Plus Xs) 15 ml QIDPRN PRN PO DYSPEPSIA; Start 08/26/18 at 18:15 Divalproex Sodium (Depakote Sprinkles) 125 mg BIDWMEALS PO Last administered on 08/29/18at 16:34; Start 08/28/18 at 08:00 Amlodipine Besylate (Norvasc) 5 mg DAILY PO Last administered on 08/29/18at 08: 00; Start 08/29/18 at 09:00 Furosemide (Lasix) 40 mg DAILY PO ; Start 08/30/18 at 09:00 Active Scripts Active Reported Refresh Optive Eye Drops (Carboxymethylcellulos/Glycerin) 15 Ml Drops 1 Drop EACHEYE TID PRN PRN Acidophilus (Lactobacillus Acidophilus) 1 Each Capsule 1 Each PO BID 7 Days Analgesic [place] (Methyl Salicylate/Menthol) 28 Gm Oint...g. 1 Geraldo TP QIDPRN PRN Milk Of Magnesia (Magnesium Hydroxide) 2,400 Mg/10 Ml Oral.susp 2,400 Mg PO HS PRN Advanced Antacid Liquid (Mag Hydrox/Al Hydrox/Simeth) 355 Ml Oral.susp 15 Ml PO QIDPRN PRN Tylenol (Acetaminophen) 325 Mg Tablet 2 Tab PO PRN Q6HRS PRN Vitamin D (Cholecalciferol (Vitamin D3)) 400 Unit/1 Ml Drops 400 Unit PO DAILY Protonix (Pantoprazole Sodium) 40 Mg Tablet.dr 40 Mg PO DAILY Memantine HCl 10 Mg Tablet 10 Mg PO DAILY Fish Oil 1,200 Mg Softgel ([place]-3S/Dha/Epa/Fish Oil) 1 Each Capsule 1 Each PO DAILY Aricept (Donepezil Hcl) 10 Mg Tablet 10 Mg PO QHS I have reviewed the current psychotropics carefully including drug interactions. Risk benefit ratio favors no change other than as noted in my dictated progress note. Diagnosis: Problems: (1) Dehydration (2) Hypotension (3) Anxiety disorder (4) Impulse control disorder (5) Vascular dementia with depressed mood (6) Vascular dementia with delusions (7) Alzheimer's dementia (8) Vascular dementia with behavioral disturbance (9) Major neurocognitive disorder ZACK FERREIRA MD Aug 29, 2018 22:38
[2018-08-30 06:22] VITALS: BP 154/86
[2018-08-30] MEDS: DIVALPROEX 125 MG CAP.SPRINK PO SCH ×3 (07:48→20:21)
[2018-08-30] MEDS: OMEGA-3 FATTY ACIDS/FISH OIL 1,000 MG CAPSULE. PO SCH (07:48)
[2018-08-30] MEDS: LACTOBACILLUS RHAMNOSUS GG 1 CAPSULE. PO SCH ×2 (07:48→20:21)
[2018-08-30] MEDS: PANTOPRAZOLE 40 MG TABLET. PO SCH (07:48)
[2018-08-30] MEDS: MEMANTINE 10 MG TABLET. PO SCH (07:49)
[2018-08-30] MEDS: amLODIPine BESYLATE 5 MG TABLET PO SCH (07:49)
[2018-08-30] MEDS: CHOLECALCIFEROL (VITAMIN D3) 1,000 UNIT TABLET PO SCH (07:49)
[2018-08-30] MEDS: FUROSEMIDE 40 MG TABLET PO SCH (07:51)
[2018-08-30] MEDS: NYSTATIN TOPICAL POWDER 15GM BOTTLE. TP SCH ×2 (09:04→20:21)
--- NOTE | 2018-08-30 14:25 | PN ---
DATE: 08/28/2018 PSYCHIATRIC PROGRESS NOTE This late entry 08/28/2018 covers elements not covered in my initial note. SUBJECTIVE: I met with the patient in the evening. The patient slept 6-1/4 hours previous night. He was agitated in the evening, but otherwise confused, just seems to laugh out at times for no reason. He had to be in the [place] to reduce stimuli for a short time earlier in the day. REVIEW OF SYSTEMS: No CV, , pulmonary, eye, ENT system symptoms on review. Reliability poor. MENTAL STATUS EXAM: Oriented to himself. Insight, judgment, recent and remote memory, attention, concentration, fund of knowledge poor, consistent with his diagnosis mentioned in my initial note. PLAN: No change from initial note. MAN Jaime FERREIRA MD DR: JE/carter JOB#: [id number] / [id number]
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
[2018-08-30 16:10] VITALS: BP 130/77
[2018-08-30] MEDS: DONEPEZIL HCL 10 MG TABLET PO SCH (20:21)
--- NOTE | 2018-08-30 22:46 | PDOC ---
Exam Note: Maurice Note: Please also refer to the separate dictated note~for this date of service dictated separately.~Patient seen individually. Discussed the patient with Nursing staff reviewed the chart.~Reviewed interim history and current functioning. Reviewed vital signs,~Labs/ Radiology~and current medications noted below. Continue current treatment with the changes noted in the dictated addendum note Assessment: Vital Signs: Vital Signs Date Time Temp Pulse Resp B/P (MAP) Pulse Ox O2 Delivery O2 Flow Rate FiO2 08/30/18 16:10 99.2 92 16 130/77 (94) 95 Room Air I&O Intake and Output 08/30/18 07:00 Intake Total 1200 ml Balance 1200 ml Intake Oral 1200 ml # Bowel Movements 1 Current Medications: Meds: Current Medications Olanzapine (ZyPREXA ZYDIS) 2.5 mg PRN Q2HR PRN PO AGITATION/PSYCHOSIS Last administered on 08/30/18 15:32; Start 08/26/18 at 17:00 Ciprofloxacin 1 drop Q2HR OU Last administered on 08/28/18 16:28; Start at 18:00; Stop 08/28/18 at 18:20; Status DC Acetaminophen (Tylenol) 650 mg PRN Q6HRS PRN PO PAIN / TEMP Last administered on 08/28/18 16:58; Start 08/26/18 at 17:45 Multi-Ingredient Ointment (Analgesic [place]) 1 geraldo QIDPRN PRN TP MUSCLE PAIN; Start 08/26/18 at 17:45 Donepezil HCl (Aricept) 10 mg QHS PO Last administered on 08/30/18at 20:21; Start 08/26/18 at 21:00 Al Hydroxide/Mg Hydroxide (Mylanta Plus Xs) 30 ml QIDPRN PRN PO DYSPEPSIA; Start 08/26/18 at 18:15; Stop 08/26/18 at 18:15; Status DC Memantine (Namenda) 10 mg DAILY PO Last administered on 08/30/18 07:49; Start 08/27/18 at 09:00 Artificial Tears (Refresh Classic) 1 drop PRN TID PRN OU DRY EYE; Start at 18:15 Vitamin D (Vitamin D3) 500 unit DAILY PO Last administered on 08/30/18at 07:49; Start 08/27/18 at 09:00 Lactobacillus Rhamnosus (Culturelle) 1 cap BID PO Last administered on 20:21; Start 08/26/18 at 21:00 Magnesium Hydroxide (Milk Of Magnesia) 2,400 mg PRN QHS PRN PO CONSTIPATION; Start 08/26/18 at 18:15 Fish Oil (Fish Oil) 1,000 mg DAILY PO Last administered on 08/30/18 07:48; Start 08/27/18 at 09:00 Pantoprazole Sodium (Protonix) 40 mg DAILY PO Last administered on 08/30/18 07 :48; Start 08/27/18 at 09:00 Al Hydroxide/Mg Hydroxide (Mylanta Plus Xs) 15 ml QIDPRN PRN PO DYSPEPSIA; Start 08/26/18 at 18:15 Divalproex Sodium (Depakote Sprinkles) 125 mg BIDWMEALS PO Last administered on 08/30/18 16:21; Start 08/28/18 at 08:00; Stop 08/30/18 at 18:24; Status DC Amlodipine Besylate (Norvasc) 5 mg DAILY PO Last administered on 08/30/18 07: 49; Start 08/29/18 at 09:00 Furosemide (Lasix) 40 mg DAILY PO Last administered on 08/30/18 07:51; Start 08/30/18 at 09:00 Nystatin (Nystop) 1 geraldo BID TP Last administered on 08/30/18 20:21; Start at 09:00 Divalproex Sodium (Depakote Sprinkles) 250 mg TID PO Last administered on 20:21; Start 08/30/18 at 21:00 Active Scripts Active Reported Refresh Optive Eye Drops (Carboxymethylcellulos/Glycerin) 15 Ml Drops 1 Drop EACHEYE TID PRN PRN Acidophilus (Lactobacillus Acidophilus) 1 Each Capsule 1 Each PO BID 7 Days Analgesic [place] (Methyl Salicylate/Menthol) 28 Gm Oint...g. 1 Geraldo TP QIDPRN PRN Milk Of Magnesia (Magnesium Hydroxide) 2,400 Mg/10 Ml Oral.susp 2,400 Mg PO HS PRN Advanced Antacid Liquid (Mag Hydrox/Al Hydrox/Simeth) 355 Ml Oral.susp 15 Ml PO QIDPRN PRN Tylenol (Acetaminophen) 325 Mg Tablet 2 Tab PO PRN Q6HRS PRN Vitamin D (Cholecalciferol (Vitamin D3)) 400 Unit/1 Ml Drops 400 Unit PO DAILY Protonix (Pantoprazole Sodium) 40 Mg Tablet.dr 40 Mg PO DAILY Memantine HCl 10 Mg Tablet 10 Mg PO DAILY Fish Oil 1,200 Mg Softgel ([place]-3S/Dha/Epa/Fish Oil) 1 Each Capsule 1 Each PO DAILY Aricept (Donepezil Hcl) 10 Mg Tablet 10 Mg PO QHS I have reviewed the current psychotropics carefully including drug interactions. Risk benefit ratio favors no change other than as noted in my dictated progress note. Diagnosis: Problems: (1) Dehydration (2) Hypotension (3) Anxiety disorder (4) Impulse control disorder (5) Vascular dementia with depressed mood (6) Vascular dementia with delusions (7) Alzheimer's dementia (8) Vascular dementia with behavioral disturbance (9) Major neurocognitive disorder ZACK FERREIRA MD Aug 30, 2018 22:46
[2018-08-31 05:55] VITALS: BP 162/84
[2018-08-31 06:27] LABS: BASO % 0 % (0-3); EOS # 0.2 x10^3/uL (0.0-0.7); EOS % 3 % (0-3); HEMATOCRIT 34.9 % (39.0-53.0); HEMOGLOBIN 11.8 g/dL (13.0-17.5); LYMPH # 1.5 x10^3/uL (1.0-4.8); LYMPH % 17 % (24-48); MEAN CORPUSCULAR HEMOGLOBIN 30 pg (25-35); MEAN CORPUSCULAR HGB CONC 34 g/dL (31-37); MEAN CORPUSCULAR VOLUME 89 fL (79-100); MONO # 0.8 x10^3/uL (0.0-1.1); MONO % 9 % (0-9); NEUT # 6.4 x10^3uL (1.8-7.7); NEUT % 71 % (31-73); PLATELET COUNT 322 x10^3/uL (140-400); RED BLOOD COUNT 3.93 x10^6/uL (4.30-5.70); RED CELL DISTRIBUTION WIDTH 13.2 % (11.5-14.5)
[2018-08-31 06:42] LABS: ALBUMIN 2.9 g/dL (3.4-5.0); ALBUMIN/GLOBULIN RATIO 0.9 (1.0-1.7); ALK PHOS 64 U/L (46-116); ALT (SGPT) 23 U/L (16-63); ANION GAP 8 (6-14); AST (SGOT) 18 U/L (15-37); BLOOD UREA NITROGEN 14 mg/dL (8-26); BUN/CREATININE RATIO 9 (6-20); CARBON DIOXIDE 29 mmol/L (21-32); CHLORIDE 107 mmol/L (98-107); CREATININE 1.6 mg/dL (0.7-1.3); GFR 42.8; GLUCOSE 88 mg/dL (70-99); POTASSIUM 3.4 mmol/L (3.5-5.1); SODIUM 144 mmol/L (136-145); TOTAL BILIRUBIN 0.3 mg/dL (0.2-1.0); TOTAL PROTEIN 6.3 g/dL (6.4-8.2)
[2018-08-31 06:44] LABS: VAL ACID 26 mcg/mL (50-100)
[2018-08-31] MEDS: FUROSEMIDE 40 MG TABLET PO SCH (09:21)
[2018-08-31] MEDS: OMEGA-3 FATTY ACIDS/FISH OIL 1,000 MG CAPSULE. PO SCH (09:21)
[2018-08-31] MEDS: PANTOPRAZOLE 40 MG TABLET. PO SCH (09:23)
[2018-08-31] MEDS: LACTOBACILLUS RHAMNOSUS GG 1 CAPSULE. PO SCH ×2 (09:23→20:47)
[2018-08-31] MEDS: amLODIPine BESYLATE 5 MG TABLET PO SCH (09:23)
[2018-08-31] MEDS: MEMANTINE 10 MG TABLET. PO SCH (09:23)
[2018-08-31] MEDS: DIVALPROEX 125 MG CAP.SPRINK PO SCH ×3 (09:23→20:47)
[2018-08-31] MEDS: CHOLECALCIFEROL (VITAMIN D3) 1,000 UNIT TABLET PO SCH (09:24)
[2018-08-31] MEDS: NYSTATIN TOPICAL POWDER 15GM BOTTLE. TP SCH ×2 (12:04→20:47)
--- NOTE | 2018-08-31 13:47 | PN ---
DATE: 08/30/2018 This is a late entry 08/30/2018 covers elements not covered in my initial note. SUBJECTIVE: I met with the patient in the evening. The patient did well in the morning, but agitated when his briefs being changed by the nursing staff and he was growling at them and then bit one of the female nursing staff. He was then had to be placed in the isolated hallway, [facility], because he was kicking, punching, totally out of control, unmanageable psychotic and impulsive. REVIEW OF SYSTEMS: No CV, , pulmonary, eye, ENT system symptoms on review. Reliability poor. MENTAL STATUS EXAM: Oriented to himself. Insight, judgment, recent and remote memory, attention, concentration, fund of knowledge poor, consistent with his diagnosis mentioned in my initial note. PLAN: Valproic acid level on 08/29/2018 was 9, subtherapeutic on Depakote 125 b.i.d. We will increase it to 250 b.i.d. Check labs and level in 3 days. Adjust further as clinically indicated. MAN Jaime FERREIRA MD DR: JE/carter JOB#: [id number] / [id number]
[2018-08-31 16:34] VITALS: BP 127/82
[2018-08-31] MEDS: ACETAMINOPHEN 325 MG TABLET PO PRN (20:47)
[2018-08-31] MEDS: DONEPEZIL HCL 10 MG TABLET PO SCH (20:47)
--- NOTE | 2018-08-31 23:12 | PDOC ---
Exam Note: Maurice Note: Please also refer to the separate dictated note~for this date of service dictated separately.~Patient seen individually. Discussed the patient with Nursing staff reviewed the chart.~Reviewed interim history and current functioning. Reviewed vital signs,~Labs/ Radiology~and current medications noted below. Continue current treatment with the changes noted in the dictated addendum note Assessment: Vital Signs: Vital Signs Date Time Temp Pulse Resp B/P (MAP) Pulse Ox O2 Delivery O2 Flow Rate FiO2 08/31/18 16:34 98.7 80 18 127/82 (97) 96 Room Air I&O Intake and Output 08/31/18 07:00 Intake Total 700 ml Balance 700 ml Intake Oral 700 ml # Bowel Movements 1 Labs: Laboratory Tests Test 08/31/18 06:15 White Blood Count 9.0 x10^3/uL (4.0-11.0) Red Blood Count 3.93 x10^6/uL (4.30-5.70) L Hemoglobin 11.8 g/dL (13.0-17.5) L Hematocrit 34.9 % (39.0-53.0) L Mean Corpuscular Volume 89 fL (79-100) Mean Corpuscular Hemoglobin 30 pg (25-35) Mean Corpuscular Hemoglobin Concent 34 g/dL (31-37) Red Cell Distribution Width 13.2 % (11.5-14.5) Platelet Count 322 x10^3/uL (140-400) Neutrophils (%) (Auto) 71 % (31-73) Lymphocytes (%) (Auto) 17 % (24-48) L Monocytes (%) (Auto) 9 % (0-9) Eosinophils (%) (Auto) 3 % (0-3) Basophils (%) (Auto) 0 % (0-3) Neutrophils # (Auto) 6.4 x10^3uL (1.8-7.7) Lymphocytes # (Auto) 1.5 x10^3/uL (1.0-4.8) Monocytes # (Auto) 0.8 x10^3/uL (0.0-1.1) Eosinophils # (Auto) 0.2 x10^3/uL (0.0-0.7) Basophils # (Auto) 0.0 x10^3/uL (0.0-0.2) Sodium Level 144 mmol/L (136-145) Potassium Level 3.4 mmol/L (3.5-5.1) L Chloride Level 107 mmol/L (98-107) Carbon Dioxide Level 29 mmol/L (21-32) Anion Gap 8 (6-14) Blood Urea Nitrogen 14 mg/dL (8-26) Creatinine 1.6 mg/dL (0.7-1.3) H Estimated GFR (Cockcroft-Gault) 42.8 BUN/Creatinine Ratio 9 (6-20) Glucose Level 88 mg/dL (70-99) Calcium Level 9.0 mg/dL (8.5-10.1) Total Bilirubin 0.3 mg/dL (0.2-1.0) Aspartate Amino Transferase (AST) 18 U/L (15-37) Alanine Aminotransferase (ALT) 23 U/L (16-63) Alkaline Phosphatase 64 U/L (46-116) Total Protein 6.3 g/dL (6.4-8.2) L Albumin 2.9 g/dL (3.4-5.0) L Albumin/Globulin Ratio 0.9 (1.0-1.7) L Valproic Acid Level 26 mcg/mL (50-100) L Valproic Acid Last Dose Date 08/30/18 Valproic Acid Last Dose Time 1700 Current Medications: Meds: Current Medications Olanzapine (ZyPREXA ZYDIS) 2.5 mg PRN Q2HR PRN PO AGITATION/PSYCHOSIS Last administered on 08/30/18at 15:32; Start 08/26/18 at 17:00 Ciprofloxacin 1 drop Q2HR OU Last administered on 08/28/18at 16:28; Start at 18:00; Stop 08/28/18 at 18:20; Status DC Acetaminophen (Tylenol) 650 mg PRN Q6HRS PRN PO PAIN / TEMP Last administered on 08/31/18at 20:47; Start 08/26/18 at 17:45 Multi-Ingredient Ointment (Analgesic [place]) 1 geraldo QIDPRN PRN TP MUSCLE PAIN; Start 08/26/18 at 17:45 Donepezil HCl (Aricept) 10 mg QHS PO Last administered on 08/31/18at 20:47; Start 08/26/18 at 21:00 Al Hydroxide/Mg Hydroxide (Mylanta Plus Xs) 30 ml QIDPRN PRN PO DYSPEPSIA; Start 08/26/18 at 18:15; Stop 08/26/18 at 18:15; Status DC Memantine (Namenda) 10 mg DAILY PO Last administered on 08/31/18 09:23; Start 08/27/18 at 09:00 Artificial Tears (Refresh Classic) 1 drop PRN TID PRN OU DRY EYE; Start at 18:15 Vitamin D (Vitamin D3) 500 unit DAILY PO Last administered on 08/31/18 09:24; Start 08/27/18 at 09:00 Lactobacillus Rhamnosus (Culturelle) 1 cap BID PO Last administered on 20:47; Start 08/26/18 at 21:00 Magnesium Hydroxide (Milk Of Magnesia) 2,400 mg PRN QHS PRN PO CONSTIPATION; Start 08/26/18 at 18:15 Fish Oil (Fish Oil) 1,000 mg DAILY PO Last administered on 08/31/18 09:21; Start 08/27/18 at 09:00 Pantoprazole Sodium (Protonix) 40 mg DAILY PO Last administered on 08/31/18 09 :23; Start 08/27/18 at 09:00 Al Hydroxide/Mg Hydroxide (Mylanta Plus Xs) 15 ml QIDPRN PRN PO DYSPEPSIA; Start 08/26/18 at 18:15 Divalproex Sodium (Depakote Sprinkles) 125 mg BIDWMEALS PO Last administered on 08/30/18 16:21; Start 08/28/18 at 08:00; Stop 08/30/18 at 18:24; Status DC Amlodipine Besylate (Norvasc) 5 mg DAILY PO Last administered on 08/31/18 09: 23; Start 08/29/18 at 09:00 Furosemide (Lasix) 40 mg DAILY PO Last administered on 08/31/18 09:21; Start 08/30/18 at 09:00 Nystatin (Nystop) 1 geraldo BID TP Last administered on 08/31/18 12:04; Start at 09:00 Divalproex Sodium (Depakote Sprinkles) 250 mg TID PO Last administered on 20:47; Start 08/30/18 at 21:00 Active Scripts Active Reported Refresh Optive Eye Drops (Carboxymethylcellulos/Glycerin) 15 Ml Drops 1 Drop EACHEYE TID PRN PRN Acidophilus (Lactobacillus Acidophilus) 1 Each Capsule 1 Each PO BID 7 Days Analgesic [place]eller[place] (Methyl Salicylate/Menthol) 28 Gm Oint...g. 1 Geraldo TP QIDPRN PRN Milk Of Magnesia (Magnesium Hydroxide) 2,400 Mg/10 Ml Oral.susp 2,400 Mg PO HS PRN Advanced Antacid Liquid (Mag Hydrox/Al Hydrox/Simeth) 355 Ml Oral.susp 15 Ml PO QIDPRN PRN Tylenol (Acetaminophen) 325 Mg Tablet 2 Tab PO PRN Q6HRS PRN Vitamin D (Cholecalciferol (Vitamin D3)) 400 Unit/1 Ml Drops 400 Unit PO DAILY Protonix (Pantoprazole Sodium) 40 Mg Tablet.dr 40 Mg PO DAILY Memantine HCl 10 Mg Tablet 10 Mg PO DAILY Fish Oil 1,200 Mg Softgel ([place]-3S/Dha/Epa/Fish Oil) 1 Each Capsule 1 Each PO DAILY Aricept (Donepezil Hcl) 10 Mg Tablet 10 Mg PO QHS I have reviewed the current psychotropics carefully including drug interactions. Risk benefit ratio favors no change other than as noted in my dictated progress note. Diagnosis: Problems: (1) Dehydration (2) Hypotension (3) Anxiety disorder (4) Impulse control disorder (5) Vascular dementia with depressed mood (6) Vascular dementia with delusions (7) Alzheimer's dementia (8) Vascular dementia with behavioral disturbance (9) Major neurocognitive disorder ZACK FERREIRA MD Aug 31, 2018 23:12
[2018-09-01 06:21] VITALS: BP 154/90
[2018-09-01] MEDS: LACTOBACILLUS RHAMNOSUS GG 1 CAPSULE. PO SCH ×2 (07:40→20:50)
[2018-09-01] MEDS: FUROSEMIDE 40 MG TABLET PO SCH (07:40)
[2018-09-01] MEDS: DIVALPROEX 125 MG CAP.SPRINK PO SCH ×3 (07:40→20:50)
[2018-09-01] MEDS: MEMANTINE 10 MG TABLET. PO SCH (07:40)
[2018-09-01] MEDS: PANTOPRAZOLE 40 MG TABLET. PO SCH (07:40)
[2018-09-01] MEDS: CHOLECALCIFEROL (VITAMIN D3) 1,000 UNIT TABLET PO SCH (07:40)
[2018-09-01] MEDS: OMEGA-3 FATTY ACIDS/FISH OIL 1,000 MG CAPSULE. PO SCH (07:40)
[2018-09-01] MEDS: amLODIPine BESYLATE 5 MG TABLET PO SCH (07:41)
[2018-09-01] MEDS: NYSTATIN TOPICAL POWDER 15GM BOTTLE. TP SCH ×2 (11:44→20:51)
[2018-09-01 16:46] VITALS: BP 146/96
[2018-09-01] MEDS: DONEPEZIL HCL 10 MG TABLET PO SCH (20:50)
[2018-09-01] MEDS: ACETAMINOPHEN 325 MG TABLET PO PRN (20:58)
--- NOTE | 2018-09-01 23:39 | PDOC ---
Exam Note: Maurice Note: Please also refer to the separate dictated note~for this date of service dictated separately.~Patient seen individually. Discussed the patient with Nursing staff reviewed the chart.~Reviewed interim history and current functioning. Reviewed vital signs,~Labs/ Radiology~and current medications noted below. Continue current treatment with the changes noted in the dictated addendum note Assessment: Vital Signs: Vital Signs Date Time Temp Pulse Resp B/P (MAP) Pulse Ox O2 Delivery O2 Flow Rate FiO2 09/01/18 16:46 98.5 90 18 146/96 (113) 100 Room Air I&O Intake and Output 09/01/18 06:59 Intake Total 1080 ml Balance 1080 ml Intake Oral 1080 ml # Voids 1 # Bowel Movements 1 Current Medications: Meds: Current Medications Olanzapine (ZyPREXA ZYDIS) 2.5 mg PRN Q2HR PRN PO AGITATION/PSYCHOSIS Last administered on 09/01/18 20:58; Start 08/26/18 at 17:00 Ciprofloxacin 1 drop Q2HR OU Last administered on 08/28/18at 16:28; Start at 18:00; Stop 08/28/18 at 18:20; Status DC Acetaminophen (Tylenol) 650 mg PRN Q6HRS PRN PO PAIN / TEMP Last administered on 09/01/18 20:58; Start 08/26/18 at 17:45 Multi-Ingredient Ointment (Analgesic [place]) 1 geraldo QIDPRN PRN TP MUSCLE PAIN; Start 08/26/18 at 17:45 Donepezil HCl (Aricept) 10 mg QHS PO Last administered on 09/01/18at 20:50; Start 08/26/18 at 21:00 Al Hydroxide/Mg Hydroxide (Mylanta Plus Xs) 30 ml QIDPRN PRN PO DYSPEPSIA; Start 08/26/18 at 18:15; Stop 08/26/18 at 18:15; Status DC Memantine (Namenda) 10 mg DAILY PO Last administered on 09/01/18 07:40; Start 08/27/18 at 09:00 Artificial Tears (Refresh Classic) 1 drop PRN TID PRN OU DRY EYE; Start at 18:15 Vitamin D (Vitamin D3) 500 unit DAILY PO Last administered on 09/01/18 07:40; Start 08/27/18 at 09:00 Lactobacillus Rhamnosus (Culturelle) 1 cap BID PO Last administered on 20:50; Start 08/26/18 at 21:00 Magnesium Hydroxide (Milk Of Magnesia) 2,400 mg PRN QHS PRN PO CONSTIPATION; Start 08/26/18 at 18:15 Fish Oil (Fish Oil) 1,000 mg DAILY PO Last administered on 09/01/18 07:40; Start 08/27/18 at 09:00 Pantoprazole Sodium (Protonix) 40 mg DAILY PO Last administered on 09/01/18 07 :40; Start 08/27/18 at 09:00 Al Hydroxide/Mg Hydroxide (Mylanta Plus Xs) 15 ml QIDPRN PRN PO DYSPEPSIA; Start 08/26/18 at 18:15 Divalproex Sodium (Depakote Sprinkles) 125 mg BIDWMEALS PO Last administered on 08/30/18 16:21; Start 08/28/18 at 08:00; Stop 08/30/18 at 18:24; Status DC Amlodipine Besylate (Norvasc) 5 mg DAILY PO Last administered on 09/01/18 07: 41; Start 08/29/18 at 09:00 Furosemide (Lasix) 40 mg DAILY PO Last administered on 09/01/18 07:40; Start 08/30/18 at 09:00 Nystatin (Nystop) 1 geraldo BID TP Last administered on 09/01/18 20:51; Start at 09:00 Divalproex Sodium (Depakote Sprinkles) 250 mg TID PO Last administered on 20:50; Start 08/30/18 at 21:00 Active Scripts Active Reported Refresh Optive Eye Drops (Carboxymethylcellulos/Glycerin) 15 Ml Drops 1 Drop EACHEYE TID PRN PRN Acidophilus (Lactobacillus Acidophilus) 1 Each Capsule 1 Each PO BID 7 Days Analgesic [place] (Methyl Salicylate/Menthol) 28 Gm Oint...g. 1 Geraldo TP QIDPRN PRN Milk Of Magnesia (Magnesium Hydroxide) 2,400 Mg/10 Ml Oral.susp 2,400 Mg PO HS PRN Advanced Antacid Liquid (Mag Hydrox/Al Hydrox/Simeth) 355 Ml Oral.susp 15 Ml PO QIDPRN PRN Tylenol (Acetaminophen) 325 Mg Tablet 2 Tab PO PRN Q6HRS PRN Vitamin D (Cholecalciferol (Vitamin D3)) 400 Unit/1 Ml Drops 400 Unit PO DAILY Protonix (Pantoprazole Sodium) 40 Mg Tablet.dr 40 Mg PO DAILY Memantine HCl 10 Mg Tablet 10 Mg PO DAILY Fish Oil 1,200 Mg Softgel ([place]-3S/Dha/Epa/Fish Oil) 1 Each Capsule 1 Each PO DAILY Aricept (Donepezil Hcl) 10 Mg Tablet 10 Mg PO QHS I have reviewed the current psychotropics carefully including drug interactions. Risk benefit ratio favors no change other than as noted in my dictated progress note. Diagnosis: Problems: (1) Dehydration (2) Hypotension (3) Anxiety disorder (4) Impulse control disorder (5) Vascular dementia with depressed mood (6) Vascular dementia with delusions (7) Alzheimer's dementia (8) Vascular dementia with behavioral disturbance (9) Major neurocognitive disorder ZACK FERREIRA MD Sep 01, 2018 23:39
[2018-09-02 06:17] VITALS: BP 147/90
[2018-09-02] MEDS: OMEGA-3 FATTY ACIDS/FISH OIL 1,000 MG CAPSULE. PO SCH (08:42)
[2018-09-02] MEDS: CHOLECALCIFEROL (VITAMIN D3) 1,000 UNIT TABLET PO SCH (08:43)
[2018-09-02] MEDS: LACTOBACILLUS RHAMNOSUS GG 1 CAPSULE. PO SCH ×2 (08:43→19:21)
[2018-09-02] MEDS: PANTOPRAZOLE 40 MG TABLET. PO SCH (08:43)
[2018-09-02] MEDS: DIVALPROEX 125 MG CAP.SPRINK PO SCH ×3 (08:43→19:21)
[2018-09-02] MEDS: MEMANTINE 10 MG TABLET. PO SCH (08:43)
[2018-09-02] MEDS: FUROSEMIDE 40 MG TABLET PO SCH (08:43)
[2018-09-02] MEDS: amLODIPine BESYLATE 5 MG TABLET PO SCH (08:44)
[2018-09-02] MEDS: NYSTATIN TOPICAL POWDER 15GM BOTTLE. TP SCH ×2 (15:53→19:22)
[2018-09-02 17:09] VITALS: BP 144/86
[2018-09-02] MEDS: DONEPEZIL HCL 10 MG TABLET PO SCH (19:21)
--- NOTE | 2018-09-02 20:27 | PN ---
DATE: 09/01/2018 PSYCHIATRIC PROGRESS NOTE This late entry 09/01/2018 covers elements not covered in my initial note. SUBJECTIVE: I met with the patient in the evening. The patient slept 7-1/2 hours previous night. It took 4 people to change his brief, but he was less combative. REVIEW OF SYSTEMS: No CV, , pulmonary, eye, ENT system symptoms on review. Reliability poor. MENTAL STATUS EXAM: Oriented to himself. Insight, judgment, recent and remote memory, attention, concentration, fund of knowledge poor, consistent with his diagnosis mentioned in my initial note. PLAN: No change from initial note. MAN Jaime FERREIRA MD DR: JE/carter JOB#: [id number] / [id number]
--- NOTE | 2018-09-02 22:46 | PDOC ---
Exam Note: Maurice Note: Please also refer to the separate dictated note~for this date of service dictated separately.~Patient seen individually. Discussed the patient with Nursing staff reviewed the chart.~Reviewed interim history and current functioning. Reviewed vital signs,~Labs/ Radiology~and current medications noted below. Continue current treatment with the changes noted in the dictated addendum note Assessment: Vital Signs: Vital Signs Date Time Temp Pulse Resp B/P (MAP) Pulse Ox O2 Delivery O2 Flow Rate FiO2 09/02/18 17:09 98.7 73 20 144/86 (105) 97 09/02/18 06:17 Room Air I&O Intake and Output 09/02/18 07:00 Intake Total 1260 ml Balance 1260 ml Intake Oral 1260 ml Current Medications: Meds: Current Medications Olanzapine (ZyPREXA ZYDIS) 2.5 mg PRN Q2HR PRN PO AGITATION/PSYCHOSIS Last administered on 09/01/18 20:58; Start 08/26/18 at 17:00 Ciprofloxacin 1 drop Q2HR OU Last administered on 08/28/18 16:28; Start at 18:00; Stop 08/28/18 at 18:20; Status DC Acetaminophen (Tylenol) 650 mg PRN Q6HRS PRN PO PAIN / TEMP Last administered on 09/01/18 20:58; Start 08/26/18 at 17:45 Multi-Ingredient Ointment (Analgesic [place]) 1 geraldo QIDPRN PRN TP MUSCLE PAIN; Start 08/26/18 at 17:45 Donepezil HCl (Aricept) 10 mg QHS PO Last administered on 09/02/18 19:21; Start 08/26/18 at 21:00 Al Hydroxide/Mg Hydroxide (Mylanta Plus Xs) 30 ml QIDPRN PRN PO DYSPEPSIA; Start 08/26/18 at 18:15; Stop 08/26/18 at 18:15; Status DC Memantine (Namenda) 10 mg DAILY PO Last administered on 09/02/18 08:43; Start 08/27/18 at 09:00 Artificial Tears (Refresh Classic) 1 drop PRN TID PRN OU DRY EYE; Start at 18:15 Vitamin D (Vitamin D3) 500 unit DAILY PO Last administered on 09/02/18 08:43; Start 08/27/18 at 09:00 Lactobacillus Rhamnosus (Culturelle) 1 cap BID PO Last administered on 19:21; Start 08/26/18 at 21:00 Magnesium Hydroxide (Milk Of Magnesia) 2,400 mg PRN QHS PRN PO CONSTIPATION; Start 08/26/18 at 18:15 Fish Oil (Fish Oil) 1,000 mg DAILY PO Last administered on 09/02/18 08:42; Start 08/27/18 at 09:00 Pantoprazole Sodium (Protonix) 40 mg DAILY PO Last administered on 09/02/18 08 :43; Start 08/27/18 at 09:00 Al Hydroxide/Mg Hydroxide (Mylanta Plus Xs) 15 ml QIDPRN PRN PO DYSPEPSIA; Start 08/26/18 at 18:15 Divalproex Sodium (Depakote Sprinkles) 125 mg BIDWMEALS PO Last administered on 08/30/18 16:21; Start 08/28/18 at 08:00; Stop 08/30/18 at 18:24; Status DC Amlodipine Besylate (Norvasc) 5 mg DAILY PO Last administered on 09/02/18 08: 44; Start 08/29/18 at 09:00 Furosemide (Lasix) 40 mg DAILY PO Last administered on 09/02/18 08:43; Start 08/30/18 at 09:00 Nystatin (Nystop) 1 geraldo BID TP Last administered on 09/02/18 19:22; Start at 09:00 Divalproex Sodium (Depakote Sprinkles) 250 mg TID PO Last administered on 19:21; Start 08/30/18 at 21:00 Active Scripts Active Reported Refresh Optive Eye Drops (Carboxymethylcellulos/Glycerin) 15 Ml Drops 1 Drop EACHEYE TID PRN PRN Acidophilus (Lactobacillus Acidophilus) 1 Each Capsule 1 Each PO BID 7 Days Analgesic [place] (Methyl Salicylate/Menthol) 28 Gm Oint...g. 1 Geraldo TP QIDPRN PRN Milk Of Magnesia (Magnesium Hydroxide) 2,400 Mg/10 Ml Oral.susp 2,400 Mg PO HS PRN Advanced Antacid Liquid (Mag Hydrox/Al Hydrox/Simeth) 355 Ml Oral.susp 15 Ml PO QIDPRN PRN Tylenol (Acetaminophen) 325 Mg Tablet 2 Tab PO PRN Q6HRS PRN Vitamin D (Cholecalciferol (Vitamin D3)) 400 Unit/1 Ml Drops 400 Unit PO DAILY Protonix (Pantoprazole Sodium) 40 Mg Tablet.dr 40 Mg PO DAILY Memantine HCl 10 Mg Tablet 10 Mg PO DAILY Fish Oil 1,200 Mg Softgel ([place]-3S/Dha/Epa/Fish Oil) 1 Each Capsule 1 Each PO DAILY Aricept (Donepezil Hcl) 10 Mg Tablet 10 Mg PO QHS I have reviewed the current psychotropics carefully including drug interactions. Risk benefit ratio favors no change other than as noted in my dictated progress note. Diagnosis: Problems: (1) Dehydration (2) Hypotension (3) Anxiety disorder (4) Impulse control disorder (5) Vascular dementia with depressed mood (6) Vascular dementia with delusions (7) Alzheimer's dementia (8) Vascular dementia with behavioral disturbance (9) Major neurocognitive disorder ZACK FERREIRA MD Sep 02, 2018 22:46
[2018-09-03 06:09] VITALS: BP 144/86
[2018-09-03] MEDS: OMEGA-3 FATTY ACIDS/FISH OIL 1,000 MG CAPSULE. PO SCH (08:13)
[2018-09-03] MEDS: DIVALPROEX 125 MG CAP.SPRINK PO SCH ×3 (08:13→20:13)
[2018-09-03] MEDS: FUROSEMIDE 40 MG TABLET PO SCH (08:14)
[2018-09-03] MEDS: MEMANTINE 10 MG TABLET. PO SCH (08:14)
[2018-09-03] MEDS: LACTOBACILLUS RHAMNOSUS GG 1 CAPSULE. PO SCH ×2 (08:14→20:13)
[2018-09-03] MEDS: CHOLECALCIFEROL (VITAMIN D3) 1,000 UNIT TABLET PO SCH (08:14)
[2018-09-03] MEDS: amLODIPine BESYLATE 5 MG TABLET PO SCH (08:14)
[2018-09-03] MEDS: PANTOPRAZOLE 40 MG TABLET. PO SCH (08:15)
[2018-09-03] MEDS: NYSTATIN TOPICAL POWDER 15GM BOTTLE. TP SCH ×2 (08:15→20:13)
[2018-09-03 09:43] LABS: BASO # 0.1 x10^3/uL (0.0-0.2); BASO % 1 % (0-3); EOS # 0.1 x10^3/uL (0.0-0.7); EOS % 1 % (0-3); HEMATOCRIT 37.5 % (39.0-53.0); HEMOGLOBIN 12.4 g/dL (13.0-17.5); LYMPH # 1.3 x10^3/uL (1.0-4.8); LYMPH % 12 % (24-48); MEAN CORPUSCULAR HEMOGLOBIN 30 pg (25-35); MEAN CORPUSCULAR HGB CONC 33 g/dL (31-37); MEAN CORPUSCULAR VOLUME 89 fL (79-100); MONO # 0.7 x10^3/uL (0.0-1.1); MONO % 6 % (0-9); NEUT % 81 % (31-73); PLATELET COUNT 346 x10^3/uL (140-400); RED BLOOD COUNT 4.21 x10^6/uL (4.30-5.70); RED CELL DISTRIBUTION WIDTH 13.6 % (11.5-14.5); WHITE BLOOD COUNT 11.2 x10^3/uL (4.0-11.0)
[2018-09-03 09:54] LABS: ALBUMIN 3.4 g/dL (3.4-5.0); ALK PHOS 67 U/L (46-116); ALT (SGPT) 21 U/L (16-63); ANION GAP 9 (6-14); AST (SGOT) 24 U/L (15-37); BLOOD UREA NITROGEN 18 mg/dL (8-26); BUN/CREATININE RATIO 11 (6-20); CALCIUM 9.2 mg/dL (8.5-10.1); CARBON DIOXIDE 30 mmol/L (21-32); CHLORIDE 105 mmol/L (98-107); CREATININE 1.7 mg/dL (0.7-1.3); GFR 39.9; GLUCOSE 89 mg/dL (70-99); POTASSIUM 3.8 mmol/L (3.5-5.1); SODIUM 144 mmol/L (136-145); TOTAL BILIRUBIN 0.3 mg/dL (0.2-1.0); TOTAL PROTEIN 6.7 g/dL (6.4-8.2); VAL ACID 36 mcg/mL (50-100)
[2018-09-03 16:21] VITALS: BP 127/95
[2018-09-03] MEDS: DONEPEZIL HCL 10 MG TABLET PO SCH (20:13)
--- NOTE | 2018-09-03 22:12 | PN ---
DATE: 09/02/2018 PSYCHIATRIC PROGRESS NOTE This late entry 09/02/2018 covers elements not covered in my initial note. SUBJECTIVE: I met with the patient in the evening. The patient slept 6-1/2 hours previous night. He has been wandering, anxious, but not agitated, even when nursing staff changes brief. This is quite an improvement. REVIEW OF SYSTEMS: No CV, , pulmonary, eye, ENT system symptoms on review. Reliability poor. MENTAL STATUS EXAM: Oriented to himself. Insight, judgment, recent and remote memory, attention, concentration, fund of knowledge poor, consistent with his diagnosis mentioned in my initial note. PLAN: No change from initial note. MAN Jaime FERREIRA MD DR: JE/carter JOB#: [id number] / [id number]
--- NOTE | 2018-09-03 23:00 | PDOC ---
Exam Note: Maurice Note: Please also refer to the separate dictated note~for this date of service dictated separately.~Patient seen individually. Discussed the patient with Nursing staff reviewed the chart.~Reviewed interim history and current functioning. Reviewed vital signs,~Labs/ Radiology~and current medications noted below. Continue current treatment with the changes noted in the dictated addendum note Assessment: Vital Signs: Vital Signs Date Time Temp Pulse Resp B/P (MAP) Pulse Ox O2 Delivery O2 Flow Rate FiO2 09/03/18 16:21 98.2 94 20 127/95 (106) 97 Room Air I&O Intake and Output 09/03/18 07:00 Intake Total 1080 ml Balance 1080 ml Intake Oral 1080 ml # Bowel Movements 1 Labs: Laboratory Tests Test 09/03/18 09:35 White Blood Count 11.2 x10^3/uL (4.0-11.0) H Red Blood Count 4.21 x10^6/uL (4.30-5.70) L Hemoglobin 12.4 g/dL (13.0-17.5) L Hematocrit 37.5 % (39.0-53.0) L Mean Corpuscular Volume 89 fL (79-100) Mean Corpuscular Hemoglobin 30 pg (25-35) Mean Corpuscular Hemoglobin Concent 33 g/dL (31-37) Red Cell Distribution Width 13.6 % (11.5-14.5) Platelet Count 346 x10^3/uL (140-400) Neutrophils (%) (Auto) 81 % (31-73) H Lymphocytes (%) (Auto) 12 % (24-48) L Monocytes (%) (Auto) 6 % (0-9) Eosinophils (%) (Auto) 1 % (0-3) Basophils (%) (Auto) 1 % (0-3) Neutrophils # (Auto) 9.0 x10^3uL (1.8-7.7) H Lymphocytes # (Auto) 1.3 x10^3/uL (1.0-4.8) Monocytes # (Auto) 0.7 x10^3/uL (0.0-1.1) Eosinophils # (Auto) 0.1 x10^3/uL (0.0-0.7) Basophils # (Auto) 0.1 x10^3/uL (0.0-0.2) Sodium Level 144 mmol/L (136-145) Potassium Level 3.8 mmol/L (3.5-5.1) Chloride Level 105 mmol/L (98-107) Carbon Dioxide Level 30 mmol/L (21-32) Anion Gap 9 (6-14) Blood Urea Nitrogen 18 mg/dL (8-26) Creatinine 1.7 mg/dL (0.7-1.3) H Estimated GFR (Cockcroft-Gault) 39.9 BUN/Creatinine Ratio 11 (6-20) Glucose Level 89 mg/dL (70-99) Calcium Level 9.2 mg/dL (8.5-10.1) Total Bilirubin 0.3 mg/dL (0.2-1.0) Aspartate Amino Transferase (AST) 24 U/L (15-37) Alanine Aminotransferase (ALT) 21 U/L (16-63) Alkaline Phosphatase 67 U/L (46-116) Total Protein 6.7 g/dL (6.4-8.2) Albumin 3.4 g/dL (3.4-5.0) Albumin/Globulin Ratio 1.0 (1.0-1.7) Valproic Acid Level 36 mcg/mL (50-100) L Valproic Acid Last Dose Date 09/02/2018 Valproic Acid Last Dose Time 2100 Current Medications: Meds: Current Medications Olanzapine (ZyPREXA ZYDIS) 2.5 mg PRN Q2HR PRN PO AGITATION/PSYCHOSIS Last administered on 09/03/18 05:58; Start 08/26/18 at 17:00 Ciprofloxacin 1 drop Q2HR OU Last administered on 08/28/18at 16:28; Start at 18:00; Stop 08/28/18 at 18:20; Status DC Acetaminophen (Tylenol) 650 mg PRN Q6HRS PRN PO PAIN / TEMP Last administered on 09/01/18 20:58; Start 08/26/18 at 17:45 Multi-Ingredient Ointment (Analgesic [place]) 1 geraldo QIDPRN PRN TP MUSCLE PAIN; Start 08/26/18 at 17:45 Donepezil HCl (Aricept) 10 mg QHS PO Last administered on 09/03/18at 20:13; Start 08/26/18 at 21:00 Al Hydroxide/Mg Hydroxide (Mylanta Plus Xs) 30 ml QIDPRN PRN PO DYSPEPSIA; Start 08/26/18 at 18:15; Stop 08/26/18 at 18:15; Status DC Memantine (Namenda) 10 mg DAILY PO Last administered on 09/03/18 08:14; Start 08/27/18 at 09:00 Artificial Tears (Refresh Classic) 1 drop PRN TID PRN OU DRY EYE; Start at 18:15 Vitamin D (Vitamin D3) 500 unit DAILY PO Last administered on 09/03/18 08:14; Start 08/27/18 at 09:00 Lactobacillus Rhamnosus (Culturelle) 1 cap BID PO Last administered on 20:13; Start 08/26/18 at 21:00 Magnesium Hydroxide (Milk Of Magnesia) 2,400 mg PRN QHS PRN PO CONSTIPATION; Start 08/26/18 at 18:15 Fish Oil (Fish Oil) 1,000 mg DAILY PO Last administered on 09/03/18 08:13; Start 08/27/18 at 09:00 Pantoprazole Sodium (Protonix) 40 mg DAILY PO Last administered on 09/03/18 08 :15; Start 08/27/18 at 09:00 Al Hydroxide/Mg Hydroxide (Mylanta Plus Xs) 15 ml QIDPRN PRN PO DYSPEPSIA; Start 08/26/18 at 18:15 Divalproex Sodium (Depakote Sprinkles) 125 mg BIDWMEALS PO Last administered on 08/30/18 16:21; Start 08/28/18 at 08:00; Stop 08/30/18 at 18:24; Status DC Amlodipine Besylate (Norvasc) 5 mg DAILY PO Last administered on 09/03/18 08: 14; Start 08/29/18 at 09:00 Furosemide (Lasix) 40 mg DAILY PO Last administered on 09/03/18 08:14; Start 08/30/18 at 09:00 Nystatin (Nystop) 1 geraldo BID TP Last administered on 09/03/18 20:13; Start at 09:00 Divalproex Sodium (Depakote Sprinkles) 250 mg TID PO Last administered on 13:46; Start 08/30/18 at 21:00; Stop 09/03/18 at 18:02; Status DC Divalproex Sodium (Depakote Sprinkles) 250 mg 0900,1300 PO ; Start 09/04/18 at 09:00 Divalproex Sodium (Depakote Sprinkles) 500 mg HS PO Last administered on at 20:13; Start 09/03/18 at 21:00 Active Scripts Active Reported Refresh Optive Eye Drops (Carboxymethylcellulos/Glycerin) 15 Ml Drops 1 Drop EACHEYE TID PRN PRN Acidophilus (Lactobacillus Acidophilus) 1 Each Capsule 1 Each PO BID 7 Days Analgesic [place] (Methyl Salicylate/Menthol) 28 Gm Oint...g. 1 Geraldo TP QIDPRN PRN Milk Of Magnesia (Magnesium Hydroxide) 2,400 Mg/10 Ml Oral.susp 2,400 Mg PO HS PRN Advanced Antacid Liquid (Mag Hydrox/Al Hydrox/Simeth) 355 Ml Oral.susp 15 Ml PO QIDPRN PRN Tylenol (Acetaminophen) 325 Mg Tablet 2 Tab PO PRN Q6HRS PRN Vitamin D (Cholecalciferol (Vitamin D3)) 400 Unit/1 Ml Drops 400 Unit PO DAILY Protonix (Pantoprazole Sodium) 40 Mg Tablet.dr 40 Mg PO DAILY Memantine HCl 10 Mg Tablet 10 Mg PO DAILY Fish Oil 1,200 Mg Softgel ([place]-3S/Dha/Epa/Fish Oil) 1 Each Capsule 1 Each PO DAILY Aricept (Donepezil Hcl) 10 Mg Tablet 10 Mg PO QHS I have reviewed the current psychotropics carefully including drug interactions. Risk benefit ratio favors no change other than as noted in my dictated progress note. Diagnosis: Problems: (1) Dehydration (2) Hypotension (3) Anxiety disorder (4) Impulse control disorder (5) Vascular dementia with depressed mood (6) Vascular dementia with delusions (7) Alzheimer's dementia (8) Vascular dementia with behavioral disturbance (9) Major neurocognitive disorder ZACK FERREIRA MD Sep 03, 2018 23:00
[2018-09-04 06:06] VITALS: BP 156/97
[2018-09-04] MEDS: MEMANTINE 10 MG TABLET. PO SCH (12:35)
[2018-09-04] MEDS: OMEGA-3 FATTY ACIDS/FISH OIL 1,000 MG CAPSULE. PO SCH (12:35)
[2018-09-04] MEDS: PANTOPRAZOLE 40 MG TABLET. PO SCH (12:35)
[2018-09-04] MEDS: NYSTATIN TOPICAL POWDER 15GM BOTTLE. TP SCH ×2 (12:36→19:27)
[2018-09-04] MEDS: CHOLECALCIFEROL (VITAMIN D3) 1,000 UNIT TABLET PO SCH (12:36)
[2018-09-04] MEDS: LACTOBACILLUS RHAMNOSUS GG 1 CAPSULE. PO SCH ×2 (12:36→19:25)
[2018-09-04] MEDS: FUROSEMIDE 40 MG TABLET PO SCH (12:36)
[2018-09-04] MEDS: amLODIPine BESYLATE 5 MG TABLET PO SCH (12:37)
[2018-09-04] MEDS: DIVALPROEX 125 MG CAP.SPRINK PO SCH ×3 (12:38→19:25)
[2018-09-04 16:06] VITALS: BP 127/86
[2018-09-04] MEDS: DONEPEZIL HCL 10 MG TABLET PO SCH (19:27)
--- NOTE | 2018-09-04 21:07 | PN ---
DATE: 09/03/2018 This is a late entry for 09/03/2018 covers elements not covered in my initial note. SUBJECTIVE: I met with the patient in the evening. The patient slept 6-1/4 hours previous night, was agitated at night with staff, difficult to redirect, combative in the morning with cares. During the day, he was wandering and intrusive. Valproic acid level is 36 on 09/03/2018. Ambulates in wheelchair. REVIEW OF SYSTEMS: Ambulation impaired. No CV, , pulmonary, eye system symptoms on review. Reliability poor. MENTAL STATUS EXAM: Oriented to himself. Insight, judgment, recent and remote memory, attention, concentration, fund of knowledge poor, consistent with his diagnosis mentioned in my initial note. PLAN: No change from initial note, but increase Depakote from 250 t.i.d. to 250 b.i.d., 500 at bedtime. Check CBC, CMP, valproic acid level in 3 days. Rest unchanged. MAN Jaime FERREIRA MD DR: JE/carter JOB#: [id number] / [id number]
[2018-09-04] MEDS: MIRTAZAPINE 7.5 MG TABLET. PO SCH (21:28)
--- NOTE | 2018-09-04 23:03 | PDOC ---
Exam Note: Maurice Note: Please also refer to the separate dictated note~for this date of service dictated separately.~Patient seen individually. Discussed the patient with Nursing staff reviewed the chart.~Reviewed interim history and current functioning. Reviewed vital signs,~Labs/ Radiology~and current medications noted below. Continue current treatment with the changes noted in the dictated addendum note Assessment: Vital Signs: Vital Signs Date Time Temp Pulse Resp B/P (MAP) Pulse Ox O2 Delivery O2 Flow Rate FiO2 09/04/18 16:06 98.9 91 18 127/86 (100) 99 Room Air I&O Intake and Output 09/04/18 06:59 Intake Total 580 ml Balance 580 ml Intake Oral 580 ml # Bowel Movements 1 Labs: Laboratory Tests Test 09/04/18 07:20 Glucose (Fingerstick) 80 mg/dL (70-99) Current Medications: Meds: Current Medications Olanzapine (ZyPREXA ZYDIS) 2.5 mg PRN Q2HR PRN PO AGITATION/PSYCHOSIS Last administered on 09/03/18at 05:58; Start 08/26/18 at 17:00 Ciprofloxacin 1 drop Q2HR OU Last administered on 08/28/18at 16:28; Start at 18:00; Stop 08/28/18 at 18:20; Status DC Acetaminophen (Tylenol) 650 mg PRN Q6HRS PRN PO PAIN / TEMP Last administered on 09/01/18at 20:58; Start 08/26/18 at 17:45 Multi-Ingredient Ointment (Analgesic [place]) 1 geraldo QIDPRN PRN TP MUSCLE PAIN; Start 08/26/18 at 17:45 Donepezil HCl (Aricept) 10 mg QHS PO Last administered on 09/04/18at 19:27; Start 08/26/18 at 21:00 Al Hydroxide/Mg Hydroxide (Mylanta Plus Xs) 30 ml QIDPRN PRN PO DYSPEPSIA; Start 08/26/18 at 18:15; Stop 08/26/18 at 18:15; Status DC Memantine (Namenda) 10 mg DAILY PO Last administered on 09/04/18at 12:35; Start 08/27/18 at 09:00 Artificial Tears (Refresh Classic) 1 drop PRN TID PRN OU DRY EYE; Start at 18:15 Vitamin D (Vitamin D3) 500 unit DAILY PO Last administered on 09/04/18 12:36; Start 08/27/18 at 09:00 Lactobacillus Rhamnosus (Culturelle) 1 cap BID PO Last administered on 19:25; Start 08/26/18 at 21:00 Magnesium Hydroxide (Milk Of Magnesia) 2,400 mg PRN QHS PRN PO CONSTIPATION; Start 08/26/18 at 18:15 Fish Oil (Fish Oil) 1,000 mg DAILY PO Last administered on 09/04/18 12:35; Start 08/27/18 at 09:00 Pantoprazole Sodium (Protonix) 40 mg DAILY PO Last administered on 09/04/18 12 :35; Start 08/27/18 at 09:00 Al Hydroxide/Mg Hydroxide (Mylanta Plus Xs) 15 ml QIDPRN PRN PO DYSPEPSIA; Start 08/26/18 at 18:15 Divalproex Sodium (Depakote Sprinkles) 125 mg BIDWMEALS PO Last administered on 08/30/18 16:21; Start 08/28/18 at 08:00; Stop 08/30/18 at 18:24; Status DC Amlodipine Besylate (Norvasc) 5 mg DAILY PO Last administered on 09/04/18 12: 37; Start 08/29/18 at 09:00 Furosemide (Lasix) 40 mg DAILY PO Last administered on 09/04/18 12:36; Start 08/30/18 at 09:00 Nystatin (Nystop) 1 geraldo BID TP Last administered on 09/04/18 19:27; Start at 09:00 Divalproex Sodium (Depakote Sprinkles) 250 mg TID PO Last administered on 13:46; Start 08/30/18 at 21:00; Stop 09/03/18 at 18:02; Status DC Divalproex Sodium (Depakote Sprinkles) 250 mg 0900,1300 PO Last administered on 09/04/18 14:56; Start 09/04/18 at 09:00 Divalproex Sodium (Depakote Sprinkles) 500 mg HS PO Last administered on 19:25; Start 3/26/19 at 21:00 Mirtazapine (Remeron) 7.5 mg QHS PO Last administered on 09/04/18at 21:28; Start 09/04/18 at 21:00 Active Scripts Active Reported Refresh Optive Eye Drops (Carboxymethylcellulos/Glycerin) 15 Ml Drops 1 Drop EACHEYE TID PRN PRN Acidophilus (Lactobacillus Acidophilus) 1 Each Capsule 1 Each PO BID 7 Days Analgesic [place] (Methyl Salicylate/Menthol) 28 Gm Oint...g. 1 Geraldo TP QIDPRN PRN Milk Of Magnesia (Magnesium Hydroxide) 2,400 Mg/10 Ml Oral.susp 2,400 Mg PO HS PRN Advanced Antacid Liquid (Mag Hydrox/Al Hydrox/Simeth) 355 Ml Oral.susp 15 Ml PO QIDPRN PRN Tylenol (Acetaminophen) 325 Mg Tablet 2 Tab PO PRN Q6HRS PRN Vitamin D (Cholecalciferol (Vitamin D3)) 400 Unit/1 Ml Drops 400 Unit PO DAILY Protonix (Pantoprazole Sodium) 40 Mg Tablet.dr 40 Mg PO DAILY Memantine HCl 10 Mg Tablet 10 Mg PO DAILY Fish Oil 1,200 Mg Softgel ([place]-3S/Dha/Epa/Fish Oil) 1 Each Capsule 1 Each PO DAILY Aricept (Donepezil Hcl) 10 Mg Tablet 10 Mg PO QHS I have reviewed the current psychotropics carefully including drug interactions. Risk benefit ratio favors no change other than as noted in my dictated progress note. Diagnosis: Problems: (1) Dehydration (2) Hypotension (3) Anxiety disorder (4) Impulse control disorder (5) Vascular dementia with depressed mood (6) Vascular dementia with delusions (7) Alzheimer's dementia (8) Vascular dementia with behavioral disturbance (9) Major neurocognitive disorder ZACK FERREIRA MD Sep 04, 2018 23:03
[2018-09-05 05:28] VITALS: BP 160/73
[2018-09-05] MEDS: OMEGA-3 FATTY ACIDS/FISH OIL 1,000 MG CAPSULE. PO SCH (08:24)
[2018-09-05] MEDS: DIVALPROEX 125 MG CAP.SPRINK PO SCH ×3 (08:24→19:36)
[2018-09-05] MEDS: CHOLECALCIFEROL (VITAMIN D3) 1,000 UNIT TABLET PO SCH (08:24)
[2018-09-05] MEDS: LACTOBACILLUS RHAMNOSUS GG 1 CAPSULE. PO SCH ×2 (08:25→19:36)
[2018-09-05] MEDS: PANTOPRAZOLE 40 MG TABLET. PO SCH (08:25)
[2018-09-05] MEDS: NYSTATIN TOPICAL POWDER 15GM BOTTLE. TP SCH ×2 (08:25→19:37)
[2018-09-05] MEDS: MEMANTINE 10 MG TABLET. PO SCH (08:25)
[2018-09-05] MEDS: FUROSEMIDE 40 MG TABLET PO SCH (08:25)
[2018-09-05] MEDS: amLODIPine BESYLATE 5 MG TABLET PO SCH (08:25)
[2018-09-05 16:18] VITALS: BP 132/64
[2018-09-05] MEDS: MIRTAZAPINE 7.5 MG TABLET. PO SCH (19:36)
[2018-09-05] MEDS: DONEPEZIL HCL 10 MG TABLET PO SCH (19:36)
--- NOTE | 2018-09-05 22:41 | PDOC ---
Exam Note: Maurice Note: Please also refer to the separate dictated note~for this date of service dictated separately.~Patient seen individually. Discussed the patient with Nursing staff reviewed the chart.~Reviewed interim history and current functioning. Reviewed vital signs,~Labs/ Radiology~and current medications noted below. Continue current treatment with the changes noted in the dictated addendum note Assessment: Vital Signs: Vital Signs Date Time Temp Pulse Resp B/P (MAP) Pulse Ox O2 Delivery O2 Flow Rate FiO2 09/05/18 16:18 98.0 101 18 132/64 (86) 98 Room Air I&O Intake and Output 09/05/18 06:59 Intake Total 820 ml Balance 820 ml Intake Oral 820 ml # Voids 1 # Bowel Movements 1 Current Medications: Meds: Current Medications Olanzapine (ZyPREXA ZYDIS) 2.5 mg PRN Q2HR PRN PO AGITATION/PSYCHOSIS Last administered on 09/03/18 05:58; Start 08/26/18 at 17:00 Ciprofloxacin 1 drop Q2HR OU Last administered on 08/28/18at 16:28; Start at 18:00; Stop 08/28/18 at 18:20; Status DC Acetaminophen (Tylenol) 650 mg PRN Q6HRS PRN PO PAIN / TEMP Last administered on 09/01/18 20:58; Start 08/26/18 at 17:45 Multi-Ingredient Ointment (Analgesic [place]) 1 geraldo QIDPRN PRN TP MUSCLE PAIN; Start 08/26/18 at 17:45 Donepezil HCl (Aricept) 10 mg QHS PO Last administered on 09/05/18at 19:36; Start 08/26/18 at 21:00 Al Hydroxide/Mg Hydroxide (Mylanta Plus Xs) 30 ml QIDPRN PRN PO DYSPEPSIA; Start 08/26/18 at 18:15; Stop 08/26/18 at 18:15; Status DC Memantine (Namenda) 10 mg DAILY PO Last administered on 09/05/18at 08:25; Start 08/27/18 at 09:00 Artificial Tears (Refresh Classic) 1 drop PRN TID PRN OU DRY EYE; Start at 18:15 Vitamin D (Vitamin D3) 500 unit DAILY PO Last administered on 09/05/18 08:24; Start 08/27/18 at 09:00 Lactobacillus Rhamnosus (Culturelle) 1 cap BID PO Last administered on 19:36; Start 08/26/18 at 21:00 Magnesium Hydroxide (Milk Of Magnesia) 2,400 mg PRN QHS PRN PO CONSTIPATION; Start 08/26/18 at 18:15 Fish Oil (Fish Oil) 1,000 mg DAILY PO Last administered on 09/05/18 08:24; Start 08/27/18 at 09:00 Pantoprazole Sodium (Protonix) 40 mg DAILY PO Last administered on 09/05/18 08 :25; Start 08/27/18 at 09:00 Al Hydroxide/Mg Hydroxide (Mylanta Plus Xs) 15 ml QIDPRN PRN PO DYSPEPSIA; Start 08/26/18 at 18:15 Divalproex Sodium (Depakote Sprinkles) 125 mg BIDWMEALS PO Last administered on 08/30/18 16:21; Start 08/28/18 at 08:00; Stop 08/30/18 at 18:24; Status DC Amlodipine Besylate (Norvasc) 5 mg DAILY PO Last administered on 09/05/18 08: 25; Start 08/29/18 at 09:00 Furosemide (Lasix) 40 mg DAILY PO Last administered on 09/05/18 08:25; Start 08/30/18 at 09:00 Nystatin (Nystop) 1 gerlado BID TP Last administered on 09/05/18 19:37; Start at 09:00 Divalproex Sodium (Depakote Sprinkles) 250 mg TID PO Last administered on 13:46; Start 08/30/18 at 21:00; Stop 09/03/18 at 18:02; Status DC Divalproex Sodium (Depakote Sprinkles) 250 mg 0900,1300 PO Last administered on 09/05/18 13:31; Start 09/04/18 at 09:00 Divalproex Sodium (Depakote Sprinkles) 500 mg HS PO Last administered on 19:36; Start 09/03/18 at 21:00 Mirtazapine (Remeron) 7.5 mg QHS PO Last administered on 3/28/19at 19:36; Start 09/04/18 at 21:00 Active Scripts Active Reported Refresh Optive Eye Drops (Carboxymethylcellulos/Glycerin) 15 Ml Drops 1 Drop EACHEYE TID PRN PRN Acidophilus (Lactobacillus Acidophilus) 1 Each Capsule 1 Each PO BID 7 Days Analgesic [place] (Methyl Salicylate/Menthol) 28 Gm Oint...g. 1 Geraldo TP QIDPRN PRN Milk Of Magnesia (Magnesium Hydroxide) 2,400 Mg/10 Ml Oral.susp 2,400 Mg PO HS PRN Advanced Antacid Liquid (Mag Hydrox/Al Hydrox/Simeth) 355 Ml Oral.susp 15 Ml PO QIDPRN PRN Tylenol (Acetaminophen) 325 Mg Tablet 2 Tab PO PRN Q6HRS PRN Vitamin D (Cholecalciferol (Vitamin D3)) 400 Unit/1 Ml Drops 400 Unit PO DAILY Protonix (Pantoprazole Sodium) 40 Mg Tablet.dr 40 Mg PO DAILY Memantine HCl 10 Mg Tablet 10 Mg PO DAILY Fish Oil 1,200 Mg Softgel ([place]-3S/Dha/Epa/Fish Oil) 1 Each Capsule 1 Each PO DAILY Aricept (Donepezil Hcl) 10 Mg Tablet 10 Mg PO QHS I have reviewed the current psychotropics carefully including drug interactions. Risk benefit ratio favors no change other than as noted in my dictated progress note. Diagnosis: Problems: (1) Dehydration (2) Hypotension (3) Anxiety disorder (4) Impulse control disorder (5) Vascular dementia with depressed mood (6) Vascular dementia with delusions (7) Alzheimer's dementia (8) Vascular dementia with behavioral disturbance (9) Major neurocognitive disorder ZACK FERREIRA MD Sep 05, 2018 22:41
[2018-09-06 05:57] VITALS: BP 124/86
[2018-09-06 06:48] LABS: BASO % 1 % (0-3); EOS # 0.3 x10^3/uL (0.0-0.7); EOS % 3 % (0-3); HEMATOCRIT 35.9 % (39.0-53.0); HEMOGLOBIN 12.3 g/dL (13.0-17.5); LYMPH # 1.5 x10^3/uL (1.0-4.8); LYMPH % 17 % (24-48); MEAN CORPUSCULAR HEMOGLOBIN 31 pg (25-35); MEAN CORPUSCULAR HGB CONC 34 g/dL (31-37); MEAN CORPUSCULAR VOLUME 89 fL (79-100); MONO # 0.9 x10^3/uL (0.0-1.1); MONO % 10 % (0-9); NEUT # 5.9 x10^3uL (1.8-7.7); NEUT % 69 % (31-73); PLATELET COUNT 282 x10^3/uL (140-400); RED BLOOD COUNT 4.02 x10^6/uL (4.30-5.70); RED CELL DISTRIBUTION WIDTH 13.7 % (11.5-14.5); WHITE BLOOD COUNT 8.6 x10^3/uL (4.0-11.0)
[2018-09-06 07:02] LABS: ALBUMIN 3.1 g/dL (3.4-5.0); ALBUMIN/GLOBULIN RATIO 0.9 (1.0-1.7); ALK PHOS 65 U/L (46-116); ALT (SGPT) 24 U/L (16-63); ANION GAP 5 (6-14); AST (SGOT) 32 U/L (15-37); BLOOD UREA NITROGEN 18 mg/dL (8-26); BUN/CREATININE RATIO 11 (6-20); CALCIUM 8.8 mg/dL (8.5-10.1); CARBON DIOXIDE 32 mmol/L (21-32); CHLORIDE 105 mmol/L (98-107); CREATININE 1.7 mg/dL (0.7-1.3); GFR 39.9; GLUCOSE 85 mg/dL (70-99); POTASSIUM 3.8 mmol/L (3.5-5.1); SODIUM 142 mmol/L (136-145); TOTAL BILIRUBIN 0.4 mg/dL (0.2-1.0); TOTAL PROTEIN 6.6 g/dL (6.4-8.2)
[2018-09-06 07:08] LABS: VAL ACID 64 mcg/mL (50-100)
[2018-09-06] MEDS: PANTOPRAZOLE 40 MG TABLET. PO SCH (07:54)
[2018-09-06] MEDS: amLODIPine BESYLATE 5 MG TABLET PO SCH (07:54)
[2018-09-06] MEDS: LACTOBACILLUS RHAMNOSUS GG 1 CAPSULE. PO SCH ×2 (07:55→20:09)
[2018-09-06] MEDS: CHOLECALCIFEROL (VITAMIN D3) 1,000 UNIT TABLET PO SCH (07:55)
[2018-09-06] MEDS: OMEGA-3 FATTY ACIDS/FISH OIL 1,000 MG CAPSULE. PO SCH (07:55)
[2018-09-06] MEDS: FUROSEMIDE 40 MG TABLET PO SCH (07:55)
[2018-09-06] MEDS: DIVALPROEX 125 MG CAP.SPRINK PO SCH ×3 (07:55→20:09)
[2018-09-06] MEDS: MEMANTINE 10 MG TABLET. PO SCH (07:55)
[2018-09-06] MEDS: NYSTATIN TOPICAL POWDER 15GM BOTTLE. TP SCH ×2 (07:55→20:10)
[2018-09-06 16:03] VITALS: BP 136/88
[2018-09-06] MEDS: MIRTAZAPINE 7.5 MG TABLET. PO SCH (20:09)
--- NOTE | 2018-09-06 21:15 | PN ---
DATE: 09/04/2018 PSYCHIATRIC PROGRESS NOTE This late entry 09/04/2018 covers elements not covered in my initial note. SUBJECTIVE: I met with the patient in the evening. The patient slept just half hour previous night. He has been intrusive, wandering until 4:30 a.m., then had to be in the [place] to reduce stimuli, slept later till noon. REVIEW OF SYSTEMS: No CV, , pulmonary, eye, ENT system symptoms on review. Reliability poor. MENTAL STATUS EXAM: Oriented to himself. Insight, judgment, recent and remote memory, attention, concentration, fund of knowledge poor, consistent with his diagnosis mentioned in my initial note. PLAN: No change from initial note, but we will add Remeron 7.5 mg at bedtime to help with insomnia. MAN Jaime FERREIRA MD DR: JE/carter JOB#: [id number] / [id number]
--- NOTE | 2018-09-06 21:16 | PN ---
DATE: 09/05/2018 PSYCHIATRIC PROGRESS NOTE This late entry 09/05/2018 covers elements not covered in my initial note. SUBJECTIVE: I met with the patient in the evening. The patient was staffed at a treatment team meeting with the entire team earlier in the day. The patient's , Sylvia, attended the conference. We reviewed his history, diagnosis, medications and answered her many questions. He slept 5 hours previous night, cooperative in medications, confused and wandering, more redirectable. We will check labs in the morning of 09/06/2018. REVIEW OF SYSTEMS: Ambulation impaired, unsteady gait, but he ambulates ad neo. No CV, , pulmonary, eye, ENT system symptoms on review. Reliability poor. MENTAL STATUS EXAM: Oriented to himself. Insight, judgment, recent and remote memory, attention, concentration, fund of knowledge poor, consistent with his diagnosis mentioned in my initial note. PLAN: No change from initial note. MAN Jaime FERREIRA MD DR: JE/carter JOB#: [id number] / [id number]
--- NOTE | 2018-09-06 22:43 | PDOC ---
Exam Note: Maurice Note: Please also refer to the separate dictated note~for this date of service dictated separately.~Patient seen individually. Discussed the patient with Nursing staff reviewed the chart.~Reviewed interim history and current functioning. Reviewed vital signs,~Labs/ Radiology~and current medications noted below. Continue current treatment with the changes noted in the dictated addendum note Assessment: Vital Signs: Vital Signs Date Time Temp Pulse Resp B/P (MAP) Pulse Ox O2 Delivery O2 Flow Rate FiO2 09/06/18 16:03 98.3 96 20 136/88 (104) 98 Room Air I&O Intake and Output 09/06/18 06:59 Intake Total 1080 ml Balance 1080 ml Intake Oral 1080 ml # Voids 1 Labs: Laboratory Tests Test 09/06/18 06:40 White Blood Count 8.6 x10^3/uL (4.0-11.0) Red Blood Count 4.02 x10^6/uL (4.30-5.70) L Hemoglobin 12.3 g/dL (13.0-17.5) L Hematocrit 35.9 % (39.0-53.0) L Mean Corpuscular Volume 89 fL (79-100) Mean Corpuscular Hemoglobin 31 pg (25-35) Mean Corpuscular Hemoglobin Concent 34 g/dL (31-37) Red Cell Distribution Width 13.7 % (11.5-14.5) Platelet Count 282 x10^3/uL (140-400) Neutrophils (%) (Auto) 69 % (31-73) Lymphocytes (%) (Auto) 17 % (24-48) L Monocytes (%) (Auto) 10 % (0-9) H Eosinophils (%) (Auto) 3 % (0-3) Basophils (%) (Auto) 1 % (0-3) Neutrophils # (Auto) 5.9 x10^3uL (1.8-7.7) Lymphocytes # (Auto) 1.5 x10^3/uL (1.0-4.8) Monocytes # (Auto) 0.9 x10^3/uL (0.0-1.1) Eosinophils # (Auto) 0.3 x10^3/uL (0.0-0.7) Basophils # (Auto) 0.0 x10^3/uL (0.0-0.2) Sodium Level 142 mmol/L (136-145) Potassium Level 3.8 mmol/L (3.5-5.1) Chloride Level 105 mmol/L (98-107) Carbon Dioxide Level 32 mmol/L (21-32) Anion Gap 5 (6-14) L Blood Urea Nitrogen 18 mg/dL (8-26) Creatinine 1.7 mg/dL (0.7-1.3) H Estimated GFR (Cockcroft-Gault) 39.9 BUN/Creatinine Ratio 11 (6-20) Glucose Level 85 mg/dL (70-99) Calcium Level 8.8 mg/dL (8.5-10.1) Total Bilirubin 0.4 mg/dL (0.2-1.0) Aspartate Amino Transferase (AST) 32 U/L (15-37) Alanine Aminotransferase (ALT) 24 U/L (16-63) Alkaline Phosphatase 65 U/L (46-116) Total Protein 6.6 g/dL (6.4-8.2) Albumin 3.1 g/dL (3.4-5.0) L Albumin/Globulin Ratio 0.9 (1.0-1.7) L Valproic Acid Level 64 mcg/mL (50-100) Valproic Acid Last Dose Date 09/05/18 Valproic Acid Last Dose Time 2100 Current Medications: Meds: Current Medications Olanzapine (ZyPREXA ZYDIS) 2.5 mg PRN Q2HR PRN PO AGITATION/PSYCHOSIS Last administered on 09/03/18 05:58; Start 08/26/18 at 17:00 Ciprofloxacin 1 drop Q2HR OU Last administered on 08/28/18at 16:28; Start at 18:00; Stop 08/28/18 at 18:20; Status DC Acetaminophen (Tylenol) 650 mg PRN Q6HRS PRN PO PAIN / TEMP Last administered on 09/01/18 20:58; Start 08/26/18 at 17:45 Multi-Ingredient Ointment (Analgesic [place]) 1 geraldo QIDPRN PRN TP MUSCLE PAIN; Start 08/26/18 at 17:45 Donepezil HCl (Aricept) 10 mg QHS PO Last administered on 09/05/18at 19:36; Start 08/26/18 at 21:00; Stop 09/06/18 at 16:57; Status DC Al Hydroxide/Mg Hydroxide (Mylanta Plus Xs) 30 ml QIDPRN PRN PO DYSPEPSIA; Start 08/26/18 at 18:15; Stop 08/26/18 at 18:15; Status DC Memantine (Namenda) 10 mg DAILY PO Last administered on 09/06/18 07:55; Start 08/27/18 at 09:00; Stop 09/06/18 at 16:57; Status DC Artificial Tears (Refresh Classic) 1 drop PRN TID PRN OU DRY EYE; Start at 18:15 Vitamin D (Vitamin D3) 500 unit DAILY PO Last administered on 09/06/18 07:55; Start 08/27/18 at 09:00 Lactobacillus Rhamnosus (Culturelle) 1 cap BID PO Last administered on 20:09; Start 08/26/18 at 21:00 Magnesium Hydroxide (Milk Of Magnesia) 2,400 mg PRN QHS PRN PO CONSTIPATION; Start 08/26/18 at 18:15 Fish Oil (Fish Oil) 1,000 mg DAILY PO Last administered on 09/06/18 07:55; Start 08/27/18 at 09:00 Pantoprazole Sodium (Protonix) 40 mg DAILY PO Last administered on 09/06/18 07 :54; Start 08/27/18 at 09:00 Al Hydroxide/Mg Hydroxide (Mylanta Plus Xs) 15 ml QIDPRN PRN PO DYSPEPSIA; Start 08/26/18 at 18:15 Divalproex Sodium (Depakote Sprinkles) 125 mg BIDWMEALS PO Last administered on 08/30/18 16:21; Start 08/28/18 at 08:00; Stop 08/30/18 at 18:24; Status DC Amlodipine Besylate (Norvasc) 5 mg DAILY PO Last administered on 09/06/18 07: 54; Start 08/29/18 at 09:00 Furosemide (Lasix) 40 mg DAILY PO Last administered on 09/06/18 07:55; Start 08/30/18 at 09:00 Nystatin (Nystop) 1 geraldo BID TP Last administered on 09/06/18 20:10; Start at 09:00 Divalproex Sodium (Depakote Sprinkles) 250 mg TID PO Last administered on at 13:46; Start 08/30/18 at 21:00; Stop 09/03/18 at 18:02; Status DC Divalproex Sodium (Depakote Sprinkles) 250 mg 0900,1300 PO Last administered on 09/06/18at 14:21; Start 09/04/18 at 09:00 Divalproex Sodium (Depakote Sprinkles) 500 mg HS PO Last administered on at 20:09; Start 09/03/18 at 21:00 Mirtazapine (Remeron) 7.5 mg QHS PO Last administered on 09/06/18at 20:09; Start 09/04/18 at 21:00 Quetiapine Fumarate (SEROquel) 12.5 mg BIDAFTMEAL PO ; Start 09/07/18 at 09:00 Active Scripts Active Reported Refresh Optive Eye Drops (Carboxymethylcellulos/Glycerin) 15 Ml Drops 1 Drop EACHEYE TID PRN PRN Acidophilus (Lactobacillus Acidophilus) 1 Each Capsule 1 Each PO BID 7 Days Analgesic [place] (Methyl Salicylate/Menthol) 28 Gm Oint...g. 1 Geraldo TP QIDPRN PRN Milk Of Magnesia (Magnesium Hydroxide) 2,400 Mg/10 Ml Oral.susp 2,400 Mg PO HS PRN Advanced Antacid Liquid (Mag Hydrox/Al Hydrox/Simeth) 355 Ml Oral.susp 15 Ml PO QIDPRN PRN Tylenol (Acetaminophen) 325 Mg Tablet 2 Tab PO PRN Q6HRS PRN Vitamin D (Cholecalciferol (Vitamin D3)) 400 Unit/1 Ml Drops 400 Unit PO DAILY Protonix (Pantoprazole Sodium) 40 Mg Tablet.dr 40 Mg PO DAILY Memantine HCl 10 Mg Tablet 10 Mg PO DAILY Fish Oil 1,200 Mg Softgel ([place]-3S/Dha/Epa/Fish Oil) 1 Each Capsule 1 Each PO DAILY Aricept (Donepezil Hcl) 10 Mg Tablet 10 Mg PO QHS I have reviewed the current psychotropics carefully including drug interactions. Risk benefit ratio favors no change other than as noted in my dictated progress note. Diagnosis: Problems: (1) Dehydration (2) Hypotension (3) Anxiety disorder (4) Impulse control disorder (5) Vascular dementia with depressed mood (6) Vascular dementia with delusions (7) Alzheimer's dementia (8) Vascular dementia with behavioral disturbance (9) Major neurocognitive disorder ZACK FERREIRA MD Sep 06, 2018 22:43
[2018-09-07 06:05] VITALS: BP 125/79
[2018-09-07] MEDS: DIVALPROEX 125 MG CAP.SPRINK PO SCH ×3 (08:01→19:38)
[2018-09-07] MEDS: CHOLECALCIFEROL (VITAMIN D3) 1,000 UNIT TABLET PO SCH (08:01)
[2018-09-07] MEDS: FUROSEMIDE 40 MG TABLET PO SCH (08:01)
[2018-09-07] MEDS: OMEGA-3 FATTY ACIDS/FISH OIL 1,000 MG CAPSULE. PO SCH (08:01)
[2018-09-07] MEDS: PANTOPRAZOLE 40 MG TABLET. PO SCH (08:01)
[2018-09-07] MEDS: LACTOBACILLUS RHAMNOSUS GG 1 CAPSULE. PO SCH ×2 (08:01→19:38)
[2018-09-07] MEDS: NYSTATIN TOPICAL POWDER 15GM BOTTLE. TP SCH ×2 (08:02→19:40)
[2018-09-07] MEDS: amLODIPine BESYLATE 5 MG TABLET PO SCH (08:02)
[2018-09-07] MEDS: QUEtiapine 25 MG TABLET. PO SCH ×2 (08:04→16:22)
[2018-09-07 17:24] VITALS: BP 132/70
[2018-09-07] MEDS: MIRTAZAPINE 7.5 MG TABLET. PO SCH (19:38)
--- NOTE | 2018-09-07 22:39 | PDOC ---
Exam Note: Maurice Note: Please also refer to the separate dictated note~for this date of service dictated separately.~Patient seen individually. Discussed the patient with Nursing staff reviewed the chart.~Reviewed interim history and current functioning. Reviewed vital signs,~Labs/ Radiology~and current medications noted below. Continue current treatment with the changes noted in the dictated addendum note Assessment: Vital Signs: Vital Signs Date Time Temp Pulse Resp B/P (MAP) Pulse Ox O2 Delivery O2 Flow Rate FiO2 09/07/18 17:24 97.7 79 16 132/70 (90) 100 09/06/18 16:03 Room Air I&O Intake and Output 09/07/18 07:00 Intake Total 600 ml Balance 600 ml Intake Oral 600 ml # Voids 1 Current Medications: Meds: Current Medications Olanzapine (ZyPREXA ZYDIS) 2.5 mg PRN Q2HR PRN PO AGITATION/PSYCHOSIS Last administered on 09/07/18 17:54; Start 08/26/18 at 17:00 Ciprofloxacin 1 drop Q2HR OU Last administered on 08/28/18 16:28; Start at 18:00; Stop 08/28/18 at 18:20; Status DC Acetaminophen (Tylenol) 650 mg PRN Q6HRS PRN PO PAIN / TEMP Last administered on 09/01/18at 20:58; Start 08/26/18 at 17:45 Multi-Ingredient Ointment (Analgesic [place]) 1 geraldo QIDPRN PRN TP MUSCLE PAIN; Start 08/26/18 at 17:45 Donepezil HCl (Aricept) 10 mg QHS PO Last administered on 09/05/18 19:36; Start 08/26/18 at 21:00; Stop 09/06/18 at 16:57; Status DC Al Hydroxide/Mg Hydroxide (Mylanta Plus Xs) 30 ml QIDPRN PRN PO DYSPEPSIA; Start 08/26/18 at 18:15; Stop 08/26/18 at 18:15; Status DC Memantine (Namenda) 10 mg DAILY PO Last administered on 09/06/18at 07:55; Start 08/27/18 at 09:00; Stop 09/06/18 at 16:57; Status DC Artificial Tears (Refresh Classic) 1 drop PRN TID PRN OU DRY EYE; Start at 18:15 Vitamin D (Vitamin D3) 500 unit DAILY PO Last administered on 09/07/18 08:01; Start 08/27/18 at 09:00 Lactobacillus Rhamnosus (Culturelle) 1 cap BID PO Last administered on 19:38; Start 08/26/18 at 21:00 Magnesium Hydroxide (Milk Of Magnesia) 2,400 mg PRN QHS PRN PO CONSTIPATION; Start 08/26/18 at 18:15 Fish Oil (Fish Oil) 1,000 mg DAILY PO Last administered on 09/07/18 08:01; Start 08/27/18 at 09:00 Pantoprazole Sodium (Protonix) 40 mg DAILY PO Last administered on 09/07/18 08 :01; Start 08/27/18 at 09:00 Al Hydroxide/Mg Hydroxide (Mylanta Plus Xs) 15 ml QIDPRN PRN PO DYSPEPSIA; Start 08/26/18 at 18:15 Divalproex Sodium (Depakote Sprinkles) 125 mg BIDWMEALS PO Last administered on 08/30/18 16:21; Start 08/28/18 at 08:00; Stop 08/30/18 at 18:24; Status DC Amlodipine Besylate (Norvasc) 5 mg DAILY PO Last administered on 09/07/18 08: 02; Start 08/29/18 at 09:00 Furosemide (Lasix) 40 mg DAILY PO Last administered on 09/07/18 08:01; Start 08/30/18 at 09:00 Nystatin (Nystop) 1 geraldo BID TP Last administered on 09/07/18 19:40; Start at 09:00 Divalproex Sodium (Depakote Sprinkles) 250 mg TID PO Last administered on 13:46; Start 08/30/18 at 21:00; Stop 09/03/18 at 18:02; Status DC Divalproex Sodium (Depakote Sprinkles) 250 mg 0900,1300 PO Last administered on 09/07/18 12:08; Start 09/04/18 at 09:00 Divalproex Sodium (Depakote Sprinkles) 500 mg HS PO Last administered on 19:38; Start 09/03/18 at 21:00 Mirtazapine (Remeron) 7.5 mg QHS PO Last administered on 09/07/18at 19:38; Start 09/04/18 at 21:00 Quetiapine Fumarate (SEROquel) 12.5 mg BIDAFTMEAL PO Last administered on at 16:22; Start 09/07/18 at 09:00 Active Scripts Active Reported Refresh Optive Eye Drops (Carboxymethylcellulos/Glycerin) 15 Ml Drops 1 Drop EACHEYE TID PRN PRN Acidophilus (Lactobacillus Acidophilus) 1 Each Capsule 1 Each PO BID 7 Days Analgesic [place] (Methyl Salicylate/Menthol) 28 Gm Oint...g. 1 Geraldo TP QIDPRN PRN Milk Of Magnesia (Magnesium Hydroxide) 2,400 Mg/10 Ml Oral.susp 2,400 Mg PO HS PRN Advanced Antacid Liquid (Mag Hydrox/Al Hydrox/Simeth) 355 Ml Oral.susp 15 Ml PO QIDPRN PRN Tylenol (Acetaminophen) 325 Mg Tablet 2 Tab PO PRN Q6HRS PRN Vitamin D (Cholecalciferol (Vitamin D3)) 400 Unit/1 Ml Drops 400 Unit PO DAILY Protonix (Pantoprazole Sodium) 40 Mg Tablet.dr 40 Mg PO DAILY Memantine HCl 10 Mg Tablet 10 Mg PO DAILY Fish Oil 1,200 Mg Softgel ([place]-3S/Dha/Epa/Fish Oil) 1 Each Capsule 1 Each PO DAILY Aricept (Donepezil Hcl) 10 Mg Tablet 10 Mg PO QHS I have reviewed the current psychotropics carefully including drug interactions. Risk benefit ratio favors no change other than as noted in my dictated progress note. Diagnosis: Problems: (1) Dehydration (2) Hypotension (3) Anxiety disorder (4) Impulse control disorder (5) Vascular dementia with depressed mood (6) Vascular dementia with delusions (7) Alzheimer's dementia (8) Vascular dementia with behavioral disturbance (9) Major neurocognitive disorder ZACK FERREIRA MD Sep 07, 2018 22:39
[2018-09-08 06:42] VITALS: BP 138/70
[2018-09-08] MEDS: CHOLECALCIFEROL (VITAMIN D3) 1,000 UNIT TABLET PO SCH (07:54)
[2018-09-08] MEDS: OMEGA-3 FATTY ACIDS/FISH OIL 1,000 MG CAPSULE. PO SCH (07:54)
[2018-09-08] MEDS: DIVALPROEX 125 MG CAP.SPRINK PO SCH ×3 (07:54→20:23)
[2018-09-08] MEDS: QUEtiapine 25 MG TABLET. PO SCH ×2 (07:55→18:01)
[2018-09-08] MEDS: PANTOPRAZOLE 40 MG TABLET. PO SCH (07:55)
[2018-09-08] MEDS: FUROSEMIDE 40 MG TABLET PO SCH (07:55)
[2018-09-08] MEDS: LACTOBACILLUS RHAMNOSUS GG 1 CAPSULE. PO SCH ×2 (07:55→20:24)
[2018-09-08] MEDS: amLODIPine BESYLATE 5 MG TABLET PO SCH (07:56)
[2018-09-08] MEDS: NYSTATIN TOPICAL POWDER 15GM BOTTLE. TP SCH ×2 (07:56→20:23)
[2018-09-08 15:50] VITALS: BP 116/81
[2018-09-08] MEDS: MIRTAZAPINE 7.5 MG TABLET. PO SCH (20:24)
[2018-09-08] MEDS: traZODone 50 MG TABLET. PO PRN (20:32)
--- NOTE | 2018-09-08 22:45 | PDOC ---
Exam Note: Maurice Note: Please also refer to the separate dictated note~for this date of service dictated separately.~Patient seen individually. Discussed the patient with Nursing staff reviewed the chart.~Reviewed interim history and current functioning. Reviewed vital signs,~Labs/ Radiology~and current medications noted below. Continue current treatment with the changes noted in the dictated addendum note Assessment: Vital Signs: Vital Signs Date Time Temp Pulse Resp B/P (MAP) Pulse Ox O2 Delivery O2 Flow Rate FiO2 09/08/18 15:50 97.9 109 18 116/81 (93) 99 09/06/18 16:03 Room Air I&O Intake and Output 09/08/18 07:00 Intake Total 1200 ml Balance 1200 ml Intake Oral 1200 ml # Bowel Movements 1 Current Medications: Meds: Current Medications Olanzapine (ZyPREXA ZYDIS) 2.5 mg PRN Q2HR PRN PO AGITATION/PSYCHOSIS Last administered on 09/07/18 17:54; Start 08/26/18 at 17:00 Ciprofloxacin 1 drop Q2HR OU Last administered on 08/28/18 16:28; Start at 18:00; Stop 08/28/18 at 18:20; Status DC Acetaminophen (Tylenol) 650 mg PRN Q6HRS PRN PO PAIN / TEMP Last administered on 09/01/18at 20:58; Start 08/26/18 at 17:45 Multi-Ingredient Ointment (Analgesic [place]) 1 geraldo QIDPRN PRN TP MUSCLE PAIN; Start 08/26/18 at 17:45 Donepezil HCl (Aricept) 10 mg QHS PO Last administered on 09/05/18 19:36; Start 08/26/18 at 21:00; Stop 09/06/18 at 16:57; Status DC Al Hydroxide/Mg Hydroxide (Mylanta Plus Xs) 30 ml QIDPRN PRN PO DYSPEPSIA; Start 08/26/18 at 18:15; Stop 08/26/18 at 18:15; Status DC Memantine (Namenda) 10 mg DAILY PO Last administered on 09/06/18at 07:55; Start 08/27/18 at 09:00; Stop 09/06/18 at 16:57; Status DC Artificial Tears (Refresh Classic) 1 drop PRN TID PRN OU DRY EYE; Start at 18:15 Vitamin D (Vitamin D3) 500 unit DAILY PO Last administered on 09/08/18 07:54; Start 08/27/18 at 09:00 Lactobacillus Rhamnosus (Culturelle) 1 cap BID PO Last administered on 20:24; Start 08/26/18 at 21:00 Magnesium Hydroxide (Milk Of Magnesia) 2,400 mg PRN QHS PRN PO CONSTIPATION; Start 08/26/18 at 18:15 Fish Oil (Fish Oil) 1,000 mg DAILY PO Last administered on 09/08/18 07:54; Start 08/27/18 at 09:00 Pantoprazole Sodium (Protonix) 40 mg DAILY PO Last administered on 09/08/18 07 :55; Start 08/27/18 at 09:00 Al Hydroxide/Mg Hydroxide (Mylanta Plus Xs) 15 ml QIDPRN PRN PO DYSPEPSIA; Start 08/26/18 at 18:15 Divalproex Sodium (Depakote Sprinkles) 125 mg BIDWMEALS PO Last administered on 08/30/18 16:21; Start 08/28/18 at 08:00; Stop 08/30/18 at 18:24; Status DC Amlodipine Besylate (Norvasc) 5 mg DAILY PO Last administered on 09/08/18 07: 56; Start 08/29/18 at 09:00 Furosemide (Lasix) 40 mg DAILY PO Last administered on 09/08/18 07:55; Start 08/30/18 at 09:00 Nystatin (Nystop) 1 geraldo BID TP Last administered on 09/08/18 20:23; Start at 09:00 Divalproex Sodium (Depakote Sprinkles) 250 mg TID PO Last administered on 13:46; Start 08/30/18 at 21:00; Stop 09/03/18 at 18:02; Status DC Divalproex Sodium (Depakote Sprinkles) 250 mg 0900,1300 PO Last administered on 09/08/18 13:49; Start 09/04/18 at 09:00 Divalproex Sodium (Depakote Sprinkles) 500 mg HS PO Last administered on 20:23; Start 09/03/18 at 21:00 Mirtazapine (Remeron) 7.5 mg QHS PO Last administered on 09/08/18at 20:24; Start 09/04/18 at 21:00 Quetiapine Fumarate (SEROquel) 12.5 mg BIDAFTMEAL PO Last administered on at 18:01; Start 09/07/18 at 09:00 Trazodone HCl (Desyrel) 50 mg PRN QHS PRN PO INSOMNIA Last administered on 09/08at 20:32; Start 09/08/18 at 18:45 Active Scripts Active Reported Refresh Optive Eye Drops (Carboxymethylcellulos/Glycerin) 15 Ml Drops 1 Drop EACHEYE TID PRN PRN Acidophilus (Lactobacillus Acidophilus) 1 Each Capsule 1 Each PO BID 7 Days Analgesic [place] (Methyl Salicylate/Menthol) 28 Gm Oint...g. 1 Geraldo TP QIDPRN PRN Milk Of Magnesia (Magnesium Hydroxide) 2,400 Mg/10 Ml Oral.susp 2,400 Mg PO HS PRN Advanced Antacid Liquid (Mag Hydrox/Al Hydrox/Simeth) 355 Ml Oral.susp 15 Ml PO QIDPRN PRN Tylenol (Acetaminophen) 325 Mg Tablet 2 Tab PO PRN Q6HRS PRN Vitamin D (Cholecalciferol (Vitamin D3)) 400 Unit/1 Ml Drops 400 Unit PO DAILY Protonix (Pantoprazole Sodium) 40 Mg Tablet.dr 40 Mg PO DAILY Memantine HCl 10 Mg Tablet 10 Mg PO DAILY Fish Oil 1,200 Mg Softgel ([place]-3S/Dha/Epa/Fish Oil) 1 Each Capsule 1 Each PO DAILY Aricept (Donepezil Hcl) 10 Mg Tablet 10 Mg PO QHS I have reviewed the current psychotropics carefully including drug interactions. Risk benefit ratio favors no change other than as noted in my dictated progress note. Diagnosis: Problems: (1) Dehydration (2) Hypotension (3) Anxiety disorder (4) Impulse control disorder (5) Vascular dementia with depressed mood (6) Vascular dementia with delusions (7) Alzheimer's dementia (8) Vascular dementia with behavioral disturbance (9) Major neurocognitive disorder ZACK FERREIRA MD Sep 08, 2018 22:45
[2018-09-09 06:38] VITALS: BP 129/79
[2018-09-09] MEDS: OMEGA-3 FATTY ACIDS/FISH OIL 1,000 MG CAPSULE. PO SCH (08:24)
[2018-09-09] MEDS: QUEtiapine 25 MG TABLET. PO SCH ×2 (08:24→17:34)
[2018-09-09] MEDS: PANTOPRAZOLE 40 MG TABLET. PO SCH (08:24)
[2018-09-09] MEDS: amLODIPine BESYLATE 5 MG TABLET PO SCH (08:24)
[2018-09-09] MEDS: LACTOBACILLUS RHAMNOSUS GG 1 CAPSULE. PO SCH ×2 (08:24→19:12)
[2018-09-09] MEDS: CHOLECALCIFEROL (VITAMIN D3) 1,000 UNIT TABLET PO SCH (08:24)
[2018-09-09] MEDS: DIVALPROEX 125 MG CAP.SPRINK PO SCH ×3 (08:25→19:12)
[2018-09-09] MEDS: NYSTATIN TOPICAL POWDER 15GM BOTTLE. TP SCH ×2 (08:25→21:00)
[2018-09-09] MEDS: FUROSEMIDE 40 MG TABLET PO SCH (08:25)
[2018-09-09 16:23] VITALS: BP 125/63
[2018-09-09] MEDS: MIRTAZAPINE 7.5 MG TABLET. PO SCH (19:12)
[2018-09-09] MEDS: traZODone 50 MG TABLET. PO PRN ×2 (19:12→21:58)
--- NOTE | 2018-09-09 20:19 | PN ---
DATE: 09/06/2018 PSYCHIATRIC PROGRESS NOTE This late entry 09/06/2018 covers elements not covered in my initial note. SUBJECTIVE: I met with the patient in the evening. The patient slept 6-1/2 hours previous night. He remains confused, has been wandering, takes medications crushed. He has been aggressive and he bit the nursing staff on her breast area per nursing report. Valproic acid level on 09/06/2018 is 64 therapeutic. REVIEW OF SYSTEMS: No CV, , pulmonary, eye, ENT system symptoms on review. Reliability poor. MENTAL STATUS EXAM: Oriented to himself. Insight, judgment, recent and remote memory, attention, concentration, fund of knowledge poor, consistent with his diagnosis mentioned in my initial note. IMPRESSION: Major neurocognitive disorder, Alzheimer, vascular with delusion, depression, behavioral disturbance; anxiety disorder, unspecified; impulse control disorder, unspecified. PLAN: We will add Seroquel 12.5 mg 9 a.m., 1:00 p.m. Maintain Depakote at current dosage. Stop the Aricept and Namenda as they probably have little beneficial effect at this stage of his dementia. Maintain Remeron 7.5 mg at bedtime. Check a valproic acid level again in due course, but currently it therapeutic. ZACK FERREIRA MD DR: JE/carter JOB#: [id number] / [id number]
--- NOTE | 2018-09-09 22:04 | PN ---
DATE: 09/07/2018 PSYCHIATRIC PROGRESS NOTE This late entry 09/07/2018 covers elements not covered in my initial note. SUBJECTIVE: I met with the patient in the evening. The patient slept 7-1/2 hours previous night. He remains anxious, restless, was in the hallway, irritable at dinnertime, threw the fork on the floor, slept 7-1/2 hours. REVIEW OF SYSTEMS: No CV, , pulmonary, eye, ENT system symptoms on review. Reliability poor. MENTAL STATUS EXAM: Oriented to himself. Insight, judgment, recent and remote memory, attention, concentration, fund of knowledge poor, consistent with his diagnosis mentioned in my initial note. PLAN: No change from initial note. MAN Jaime FERREIRA MD DR: JE/carter JOB#: [id number] / [id number]
--- NOTE | 2018-09-09 22:06 | PN ---
DATE: 09/08/2018 PSYCHIATRIC PROGRESS NOTE This late entry 09/08/2018 covers elements not covered in my initial note. SUBJECTIVE: I met with the patient in the evening. He did well in the morning, but later in the day, he was in the quiet room, slept 4-1/2 hours on further review. He had to be in the quiet room at one point and during showers, he was growling at nursing staff, trying to bite the nursing staff, quite agitated, psychotic, paranoid, confused. REVIEW OF SYSTEMS: No CV, , pulmonary, eye, ENT system symptoms on review. Reliability poor. MENTAL STATUS EXAM: Oriented to himself. Insight, judgment, recent and remote memory, attention, concentration, fund of knowledge poor, consistent with his diagnosis mentioned in my initial note. PLAN: Start trazodone 50 mg at bedtime p.r.n., may repeat x 1. Rest unchanged. We are adjusting Depakote to reach therapeutic level. Currently, level is 64. May need to increase Seroquel further. MAN Jaime FERREIRA MD DR: JE/carter JOB#: [id number] / [id number]
--- NOTE | 2018-09-09 22:56 | PDOC ---
Exam Note: Maurice Note: Please also refer to the separate dictated note~for this date of service dictated separately.~Patient seen individually. Discussed the patient with Nursing staff reviewed the chart.~Reviewed interim history and current functioning. Reviewed vital signs,~Labs/ Radiology~and current medications noted below. Continue current treatment with the changes noted in the dictated addendum note Assessment: Vital Signs: Vital Signs Date Time Temp Pulse Resp B/P (MAP) Pulse Ox O2 Delivery O2 Flow Rate FiO2 09/09/18 16:23 97.6 80 20 125/63 (83) 98 09/06/18 16:03 Room Air I&O Intake and Output 09/09/18 06:59 Intake Total 960 ml Balance 960 ml Intake Oral 960 ml Current Medications: Meds: Current Medications Olanzapine (ZyPREXA ZYDIS) 2.5 mg PRN Q2HR PRN PO AGITATION/PSYCHOSIS Last administered on 09/07/18 17:54; Start 08/26/18 at 17:00 Ciprofloxacin 1 drop Q2HR OU Last administered on 08/28/18at 16:28; Start at 18:00; Stop 08/28/18 at 18:20; Status DC Acetaminophen (Tylenol) 650 mg PRN Q6HRS PRN PO PAIN / TEMP Last administered on 09/01/18at 20:58; Start 08/26/18 at 17:45 Multi-Ingredient Ointment (Analgesic [place]) 1 geraldo QIDPRN PRN TP MUSCLE PAIN; Start 08/26/18 at 17:45 Donepezil HCl (Aricept) 10 mg QHS PO Last administered on 09/05/18at 19:36; Start 08/26/18 at 21:00; Stop 09/06/18 at 16:57; Status DC Al Hydroxide/Mg Hydroxide (Mylanta Plus Xs) 30 ml QIDPRN PRN PO DYSPEPSIA; Start 08/26/18 at 18:15; Stop 08/26/18 at 18:15; Status DC Memantine (Namenda) 10 mg DAILY PO Last administered on 09/06/18at 07:55; Start 08/27/18 at 09:00; Stop 09/06/18 at 16:57; Status DC Artificial Tears (Refresh Classic) 1 drop PRN TID PRN OU DRY EYE; Start at 18:15 Vitamin D (Vitamin D3) 500 unit DAILY PO Last administered on 09/09/18 08:24; Start 08/27/18 at 09:00 Lactobacillus Rhamnosus (Culturelle) 1 cap BID PO Last administered on 19:12; Start 08/26/18 at 21:00 Magnesium Hydroxide (Milk Of Magnesia) 2,400 mg PRN QHS PRN PO CONSTIPATION; Start 08/26/18 at 18:15 Fish Oil (Fish Oil) 1,000 mg DAILY PO Last administered on 09/09/18 08:24; Start 08/27/18 at 09:00 Pantoprazole Sodium (Protonix) 40 mg DAILY PO Last administered on 09/09/18 08: 24; Start 08/27/18 at 09:00 Al Hydroxide/Mg Hydroxide (Mylanta Plus Xs) 15 ml QIDPRN PRN PO DYSPEPSIA; Start 08/26/18 at 18:15 Divalproex Sodium (Depakote Sprinkles) 125 mg BIDWMEALS PO Last administered on 08/30/18 16:21; Start 08/28/18 at 08:00; Stop 08/30/18 at 18:24; Status DC Amlodipine Besylate (Norvasc) 5 mg DAILY PO Last administered on 09/09/18 08:24 ; Start 08/29/18 at 09:00 Furosemide (Lasix) 40 mg DAILY PO Last administered on 09/09/18 08:25; Start at 09:00 Nystatin (Nystop) 1 geraldo BID TP Last administered on 09/09/18 08:25; Start 08/30 at 09:00 Divalproex Sodium (Depakote Sprinkles) 250 mg TID PO Last administered on 13:46; Start 08/30/18 at 21:00; Stop 09/03/18 at 18:02; Status DC Divalproex Sodium (Depakote Sprinkles) 250 mg 0900,1300 PO Last administered on 09/09/18 13:00; Start 09/04/18 at 09:00 Divalproex Sodium (Depakote Sprinkles) 500 mg HS PO Last administered on 19:12; Start 09/03/18 at 21:00 Mirtazapine (Remeron) 7.5 mg QHS PO Last administered on 09/09/18at 19:12; Start 09/04/18 at 21:00 Quetiapine Fumarate (SEROquel) 12.5 mg BIDAFTMEAL PO Last administered on at 08:24; Start 09/07/18 at 09:00 Trazodone HCl (Desyrel) 50 mg PRN QHS PRN PO INSOMNIA Last administered on at 21:58; Start 09/08/18 at 18:45 Active Scripts Active Reported Refresh Optive Eye Drops (Carboxymethylcellulos/Glycerin) 15 Ml Drops 1 Drop EACHEYE TID PRN PRN Acidophilus (Lactobacillus Acidophilus) 1 Each Capsule 1 Each PO BID 7 Days Analgesic [place] (Methyl Salicylate/Menthol) 28 Gm Oint...g. 1 Geraldo TP QIDPRN PRN Milk Of Magnesia (Magnesium Hydroxide) 2,400 Mg/10 Ml Oral.susp 2,400 Mg PO HS PRN Advanced Antacid Liquid (Mag Hydrox/Al Hydrox/Simeth) 355 Ml Oral.susp 15 Ml PO QIDPRN PRN Tylenol (Acetaminophen) 325 Mg Tablet 2 Tab PO PRN Q6HRS PRN Vitamin D (Cholecalciferol (Vitamin D3)) 400 Unit/1 Ml Drops 400 Unit PO DAILY Protonix (Pantoprazole Sodium) 40 Mg Tablet.dr 40 Mg PO DAILY Memantine HCl 10 Mg Tablet 10 Mg PO DAILY Fish Oil 1,200 Mg Softgel ([place]-3S/Dha/Epa/Fish Oil) 1 Each Capsule 1 Each PO DAILY Aricept (Donepezil Hcl) 10 Mg Tablet 10 Mg PO QHS I have reviewed the current psychotropics carefully including drug interactions. Risk benefit ratio favors no change other than as noted in my dictated progress note. Diagnosis: Problems: (1) Dehydration (2) Hypotension (3) Anxiety disorder (4) Impulse control disorder (5) Vascular dementia with depressed mood (6) Vascular dementia with delusions (7) Alzheimer's dementia (8) Vascular dementia with behavioral disturbance (9) Major neurocognitive disorder ZACK FERREIRA MD Sep 09, 2018 22:56
[2018-09-10 06:07] VITALS: BP 135/72
[2018-09-10] MEDS: FUROSEMIDE 40 MG TABLET PO SCH (08:25)
[2018-09-10] MEDS: DIVALPROEX 125 MG CAP.SPRINK PO SCH ×3 (08:26→21:03)
[2018-09-10] MEDS: LACTOBACILLUS RHAMNOSUS GG 1 CAPSULE. PO SCH ×2 (08:27→21:03)
[2018-09-10] MEDS: QUEtiapine 25 MG TABLET. PO SCH ×2 (08:27→17:11)
[2018-09-10] MEDS: OMEGA-3 FATTY ACIDS/FISH OIL 1,000 MG CAPSULE. PO SCH (08:27)
[2018-09-10] MEDS: NYSTATIN TOPICAL POWDER 15GM BOTTLE. TP SCH ×2 (08:28→21:03)
[2018-09-10] MEDS: amLODIPine BESYLATE 5 MG TABLET PO SCH (08:28)
[2018-09-10] MEDS: CHOLECALCIFEROL (VITAMIN D3) 1,000 UNIT TABLET PO SCH (08:28)
[2018-09-10] MEDS: PANTOPRAZOLE 40 MG TABLET. PO SCH (08:28)
[2018-09-10] MEDS: ACETAMINOPHEN 325 MG TABLET PO PRN (13:00)
[2018-09-10 15:47] VITALS: BP 114/78
[2018-09-10] MEDS: traZODone 50 MG TABLET. PO PRN (21:03)
[2018-09-10] MEDS: MIRTAZAPINE 7.5 MG TABLET. PO SCH (21:03)
--- NOTE | 2018-09-10 22:40 | PDOC ---
Exam Note: Maurice Note: Please also refer to the separate dictated note~for this date of service dictated separately.~Patient seen individually. Discussed the patient with Nursing staff reviewed the chart.~Reviewed interim history and current functioning. Reviewed vital signs,~Labs/ Radiology~and current medications noted below. Continue current treatment with the changes noted in the dictated addendum note Assessment: Vital Signs: Vital Signs Date Time Temp Pulse Resp B/P (MAP) Pulse Ox O2 Delivery O2 Flow Rate FiO2 09/10/18 15:47 98.3 112 18 114/78 (90) 98 Room Air I&O Intake and Output 09/10/18 07:00 Intake Total 600 ml Balance 600 ml Intake Oral 600 ml # Voids 1 Current Medications: Meds: Current Medications Olanzapine (ZyPREXA ZYDIS) 2.5 mg PRN Q2HR PRN PO AGITATION/PSYCHOSIS Last administered on 09/07/18 17:54; Start 08/26/18 at 17:00 Ciprofloxacin 1 drop Q2HR OU Last administered on 08/28/18 16:28; Start at 18:00; Stop 08/28/18 at 18:20; Status DC Acetaminophen (Tylenol) 650 mg PRN Q6HRS PRN PO PAIN / TEMP Last administered on 09/10/18 13:00; Start 08/26/18 at 17:45 Multi-Ingredient Ointment (Analgesic [place]) 1 geraldo QIDPRN PRN TP MUSCLE PAIN; Start 08/26/18 at 17:45 Donepezil HCl (Aricept) 10 mg QHS PO Last administered on 09/05/18at 19:36; Start 08/26/18 at 21:00; Stop 09/06/18 at 16:57; Status DC Al Hydroxide/Mg Hydroxide (Mylanta Plus Xs) 30 ml QIDPRN PRN PO DYSPEPSIA; Start 08/26/18 at 18:15; Stop 08/26/18 at 18:15; Status DC Memantine (Namenda) 10 mg DAILY PO Last administered on 09/06/18at 07:55; Start 08/27/18 at 09:00; Stop 09/06/18 at 16:57; Status DC Artificial Tears (Refresh Classic) 1 drop PRN TID PRN OU DRY EYE; Start at 18:15 Vitamin D (Vitamin D3) 500 unit DAILY PO Last administered on 09/10/18 08:28; Start 08/27/18 at 09:00 Lactobacillus Rhamnosus (Culturelle) 1 cap BID PO Last administered on 21:03; Start 08/26/18 at 21:00 Magnesium Hydroxide (Milk Of Magnesia) 2,400 mg PRN QHS PRN PO CONSTIPATION; Start 08/26/18 at 18:15 Fish Oil (Fish Oil) 1,000 mg DAILY PO Last administered on 09/10/18 08:27; Start 08/27/18 at 09:00 Pantoprazole Sodium (Protonix) 40 mg DAILY PO Last administered on 09/10/18 08: 28; Start 08/27/18 at 09:00 Al Hydroxide/Mg Hydroxide (Mylanta Plus Xs) 15 ml QIDPRN PRN PO DYSPEPSIA; Start 08/26/18 at 18:15 Divalproex Sodium (Depakote Sprinkles) 125 mg BIDWMEALS PO Last administered on 08/30/18 16:21; Start 08/28/18 at 08:00; Stop 08/30/18 at 18:24; Status DC Amlodipine Besylate (Norvasc) 5 mg DAILY PO Last administered on 09/10/18 08:28 ; Start 08/29/18 at 09:00 Furosemide (Lasix) 40 mg DAILY PO Last administered on 09/10/18 08:25; Start at 09:00 Nystatin (Nystop) 1 geraldo BID TP Last administered on 09/10/18 21:03; Start 08/30 at 09:00 Divalproex Sodium (Depakote Sprinkles) 250 mg TID PO Last administered on 13:46; Start 08/30/18 at 21:00; Stop 09/03/18 at 18:02; Status DC Divalproex Sodium (Depakote Sprinkles) 250 mg 0900,1300 PO Last administered on 09/10/18 13:00; Start 09/04/18 at 09:00 Divalproex Sodium (Depakote Sprinkles) 500 mg HS PO Last administered on 21:03; Start 3/26/19 at 21:00 Mirtazapine (Remeron) 7.5 mg QHS PO Last administered on 09/10/18at 21:03; Start 09/04/18 at 21:00 Quetiapine Fumarate (SEROquel) 12.5 mg BIDAFTMEAL PO Last administered on at 17:11; Start 09/07/18 at 09:00 Trazodone HCl (Desyrel) 50 mg PRN QHS PRN PO INSOMNIA Last administered on at 21:03; Start 09/08/18 at 18:45 Fluconazole (Diflucan) 100 mg DAILY PO ; Start 09/11/18 at 09:00; Stop 09/20/18 at 08:59 Active Scripts Active Reported Refresh Optive Eye Drops (Carboxymethylcellulos/Glycerin) 15 Ml Drops 1 Drop EACHEYE TID PRN PRN Acidophilus (Lactobacillus Acidophilus) 1 Each Capsule 1 Each PO BID 7 Days Analgesic [place] (Methyl Salicylate/Menthol) 28 Gm Oint...g. 1 Geraldo TP QIDPRN PRN Milk Of Magnesia (Magnesium Hydroxide) 2,400 Mg/10 Ml Oral.susp 2,400 Mg PO HS PRN Advanced Antacid Liquid (Mag Hydrox/Al Hydrox/Simeth) 355 Ml Oral.susp 15 Ml PO QIDPRN PRN Tylenol (Acetaminophen) 325 Mg Tablet 2 Tab PO PRN Q6HRS PRN Vitamin D (Cholecalciferol (Vitamin D3)) 400 Unit/1 Ml Drops 400 Unit PO DAILY Protonix (Pantoprazole Sodium) 40 Mg Tablet.dr 40 Mg PO DAILY Memantine HCl 10 Mg Tablet 10 Mg PO DAILY Fish Oil 1,200 Mg Softgel ([place]-3S/Dha/Epa/Fish Oil) 1 Each Capsule 1 Each PO DAILY Aricept (Donepezil Hcl) 10 Mg Tablet 10 Mg PO QHS I have reviewed the current psychotropics carefully including drug interactions. Risk benefit ratio favors no change other than as noted in my dictated progress note. Diagnosis: Problems: (1) Dehydration (2) Hypotension (3) Anxiety disorder (4) Impulse control disorder (5) Vascular dementia with depressed mood (6) Vascular dementia with delusions (7) Alzheimer's dementia (8) Vascular dementia with behavioral disturbance (9) Major neurocognitive disorder ZACK FERREIRA MD Sep 10, 2018 22:40
--- NOTE | 2018-09-11 03:14 | PN ---
DATE: 09/09/2018 This late entry for 09/09/2018 covers elements not covered in my initial note. SUBJECTIVE: I met with the patient in the evening of 09/09/2018. The patient slept 6 hours previous night. At night, he was agitated, head-butting staff, aggressive, disruptive, but during the day on 09/09/2018, he has been less irritable, though he had to be taken to the quiet hallway to remove him from the stimuli on the unit. REVIEW OF SYSTEMS: No CV, , pulmonary, eye, ENT system symptoms on review. Reliability poor. MENTAL STATUS EXAM: Oriented to himself. Insight, judgment, recent and remote memory, attention, concentration, fund of knowledge poor, consistent with his diagnosis mentioned in my initial note. PLAN: No change from initial note. MAN Jaime FERREIRA MD DR: JE/carter JOB#: [id number] / [id number]
[2018-09-11 05:48] VITALS: BP 136/79
[2018-09-11] MEDS: amLODIPine BESYLATE 5 MG TABLET PO SCH (07:25)
[2018-09-11] MEDS: CHOLECALCIFEROL (VITAMIN D3) 1,000 UNIT TABLET PO SCH (07:25)
[2018-09-11] MEDS: LACTOBACILLUS RHAMNOSUS GG 1 CAPSULE. PO SCH ×2 (07:25→20:27)
[2018-09-11] MEDS: DIVALPROEX 125 MG CAP.SPRINK PO SCH ×3 (07:25→20:27)
[2018-09-11] MEDS: PANTOPRAZOLE 40 MG TABLET. PO SCH (07:26)
[2018-09-11] MEDS: FUROSEMIDE 40 MG TABLET PO SCH (07:26)
[2018-09-11] MEDS: OMEGA-3 FATTY ACIDS/FISH OIL 1,000 MG CAPSULE. PO SCH (07:26)
[2018-09-11] MEDS: QUEtiapine 25 MG TABLET. PO SCH ×2 (07:26→16:50)
[2018-09-11] MEDS: FLUCONAZOLE 100 MG TABLET. PO SCH (08:43)
[2018-09-11] MEDS: NYSTATIN TOPICAL POWDER 15GM BOTTLE. TP SCH ×2 (08:43→20:28)
[2018-09-11] MEDS: VITS A & D/LANOLIN TOPICAL OINTMENT 56GM TUBE. TP SCH ×3 (09:00→20:28)
[2018-09-11 16:45] VITALS: BP 126/79
[2018-09-11] MEDS: MIRTAZAPINE 7.5 MG TABLET. PO SCH (20:27)
--- NOTE | 2018-09-11 22:33 | PDOC ---
Exam Note: Maurice Note: Please also refer to the separate dictated note~for this date of service dictated separately.~Patient seen individually. Discussed the patient with Nursing staff reviewed the chart.~Reviewed interim history and current functioning. Reviewed vital signs,~Labs/ Radiology~and current medications noted below. Continue current treatment with the changes noted in the dictated addendum note Assessment: Vital Signs: Vital Signs Date Time Temp Pulse Resp B/P (MAP) Pulse Ox O2 Delivery O2 Flow Rate FiO2 09/11/18 16:45 97.8 96 18 126/79 (95) 98 09/10/18 15:47 Room Air I&O Intake and Output 09/11/18 07:00 Intake Total 720 ml Balance 720 ml Intake Oral 720 ml # Voids 1 # Bowel Movements 2 Current Medications: Meds: Current Medications Olanzapine (ZyPREXA ZYDIS) 2.5 mg PRN Q2HR PRN PO AGITATION/PSYCHOSIS Last administered on 09/07/18 17:54; Start 08/26/18 at 17:00 Ciprofloxacin 1 drop Q2HR OU Last administered on 08/28/18 16:28; Start at 18:00; Stop 08/28/18 at 18:20; Status DC Acetaminophen (Tylenol) 650 mg PRN Q6HRS PRN PO PAIN / TEMP Last administered on 09/10/18 13:00; Start 08/26/18 at 17:45 Multi-Ingredient Ointment (Analgesic [place]) 1 geraldo QIDPRN PRN TP MUSCLE PAIN; Start 08/26/18 at 17:45 Donepezil HCl (Aricept) 10 mg QHS PO Last administered on 09/05/18 19:36; Start 08/26/18 at 21:00; Stop 09/06/18 at 16:57; Status DC Al Hydroxide/Mg Hydroxide (Mylanta Plus Xs) 30 ml QIDPRN PRN PO DYSPEPSIA; Start 08/26/18 at 18:15; Stop 08/26/18 at 18:15; Status DC Memantine (Namenda) 10 mg DAILY PO Last administered on 09/06/18at 07:55; Start 08/27/18 at 09:00; Stop 09/06/18 at 16:57; Status DC Artificial Tears (Refresh [place]) 1 drop PRN TID PRN OU DRY EYE; Start at 18:15 Vitamin D (Vitamin D3) 500 unit DAILY PO Last administered on 09/11/18 07:25; Start 08/27/18 at 09:00 Lactobacillus Rhamnosus (Culturelle) 1 cap BID PO Last administered on 20:27; Start 08/26/18 at 21:00 Magnesium Hydroxide (Milk Of Magnesia) 2,400 mg PRN QHS PRN PO CONSTIPATION; Start 08/26/18 at 18:15 Fish Oil (Fish Oil) 1,000 mg DAILY PO Last administered on 09/11/18 07:26; Start 08/27/18 at 09:00 Pantoprazole Sodium (Protonix) 40 mg DAILY PO Last administered on 09/11/18 07: 26; Start 08/27/18 at 09:00 Al Hydroxide/Mg Hydroxide (Mylanta Plus Xs) 15 ml QIDPRN PRN PO DYSPEPSIA; Start 08/26/18 at 18:15 Divalproex Sodium (Depakote Sprinkles) 125 mg BIDWMEALS PO Last administered on 08/30/18 16:21; Start 08/28/18 at 08:00; Stop 08/30/18 at 18:24; Status DC Amlodipine Besylate (Norvasc) 5 mg DAILY PO Last administered on 09/11/18 07:25 ; Start 08/29/18 at 09:00 Furosemide (Lasix) 40 mg DAILY PO Last administered on 09/11/18 07:26; Start at 09:00 Nystatin (Nystop) 1 geraldo BID TP Last administered on 09/11/18 20:28; Start 08/30 at 09:00 Divalproex Sodium (Depakote Sprinkles) 250 mg TID PO Last administered on 13:46; Start 08/30/18 at 21:00; Stop 09/03/18 at 18:02; Status DC Divalproex Sodium (Depakote Sprinkles) 250 mg 0900,1300 PO Last administered on 09/11/18 13:24; Start 09/04/18 at 09:00 Divalproex Sodium (Depakote Sprinkles) 500 mg HS PO Last administered on 20:27; Start 09/03/18 at 21:00 Mirtazapine (Remeron) 7.5 mg QHS PO Last administered on 09/11/18 20:27; Start 09/04/18 at 21:00 Quetiapine Fumarate (SEROquel) 12.5 mg BIDAFTMEAL PO Last administered on 16:50; Start 09/07/18 at 09:00 Trazodone HCl (Desyrel) 50 mg PRN QHS PRN PO INSOMNIA Last administered on 21:03; Start 09/08/18 at 18:45 Fluconazole (Diflucan) 100 mg DAILY PO Last administered on 09/11/18 08:43; Start 09/11/18 at 09:00; Stop 09/20/18 at 08:59 Vitamin A/Vitamin D (Vitamin A & D Ointment) 1 geraldo TID TP Last administered on 09/11/18 20:28; Start 09/11/18 at 09:00 Active Scripts Active Reported Refresh Optive Eye Drops (Carboxymethylcellulos/Glycerin) 15 Ml Drops 1 Drop EACHEYE TID PRN PRN Acidophilus (Lactobacillus Acidophilus) 1 Each Capsule 1 Each PO BID 7 Days Analgesic [place] (Methyl Salicylate/Menthol) 28 Gm Oint...g. 1 Geraldo TP QIDPRN PRN Milk Of Magnesia (Magnesium Hydroxide) 2,400 Mg/10 Ml Oral.susp 2,400 Mg PO HS PRN Advanced Antacid Liquid (Mag Hydrox/Al Hydrox/Simeth) 355 Ml Oral.susp 15 Ml PO QIDPRN PRN Tylenol (Acetaminophen) 325 Mg Tablet 2 Tab PO PRN Q6HRS PRN Vitamin D (Cholecalciferol (Vitamin D3)) 400 Unit/1 Ml Drops 400 Unit PO DAILY Protonix (Pantoprazole Sodium) 40 Mg Tablet.dr 40 Mg PO DAILY Memantine HCl 10 Mg Tablet 10 Mg PO DAILY Fish Oil 1,200 Mg Softgel ([place]-3S/Dha/Epa/Fish Oil) 1 Each Capsule 1 Each PO DAILY Aricept (Donepezil Hcl) 10 Mg Tablet 10 Mg PO QHS I have reviewed the current psychotropics carefully including drug interactions. Risk benefit ratio favors no change other than as noted in my dictated progress note. Diagnosis: Problems: (1) Dehydration (2) Hypotension (3) Anxiety disorder (4) Impulse control disorder (5) Vascular dementia with depressed mood (6) Vascular dementia with delusions (7) Alzheimer's dementia (8) Vascular dementia with behavioral disturbance (9) Major neurocognitive disorder ZACK FERREIRA MD Sep 11, 2018 22:33
--- NOTE | 2018-09-11 22:53 | PN ---
DATE: 09/10/2018 PSYCHIATRIC PROGRESS NOTE This late entry 09/10/2018 covers elements not covered in my initial note. SUBJECTIVE: I met with the patient in the evening. The patient slept 8 hours previous night. He ambulates on his own, took his meds at night, combative with cares with changing of brief. On 09/10/2018, he was drowsy during the day, took his meds, crushed, . He has been started on Diflucan per Dr. Khalil. The wound care consult has been done. Received p.r.n. Tylenol for pain. REVIEW OF SYSTEMS: No CV, , pulmonary, eye, ENT system symptoms on review. Reliability poor. MENTAL STATUS EXAM: Oriented to himself. Insight, judgment, recent and remote memory, attention, concentration, fund of knowledge poor, consistent with his diagnosis mentioned in my initial note. PLAN: No change from initial note. ZACK FERREIRA MD DR: JE/carter JOB#: [id number] / [id number]
[2018-09-12 06:01] VITALS: BP 125/87
[2018-09-12] MEDS: DIVALPROEX 125 MG CAP.SPRINK PO SCH ×2 (07:50→19:48)
[2018-09-12] MEDS: FUROSEMIDE 40 MG TABLET PO SCH (07:51)
[2018-09-12] MEDS: PANTOPRAZOLE 40 MG TABLET. PO SCH (07:51)
[2018-09-12] MEDS: CHOLECALCIFEROL (VITAMIN D3) 1,000 UNIT TABLET PO SCH (07:51)
[2018-09-12] MEDS: FLUCONAZOLE 100 MG TABLET. PO SCH (07:51)
[2018-09-12] MEDS: LACTOBACILLUS RHAMNOSUS GG 1 CAPSULE. PO SCH ×2 (07:51→19:48)
[2018-09-12] MEDS: QUEtiapine 25 MG TABLET. PO SCH ×2 (07:52→17:09)
[2018-09-12] MEDS: amLODIPine BESYLATE 5 MG TABLET PO SCH (07:52)
[2018-09-12] MEDS: VITS A & D/LANOLIN TOPICAL OINTMENT 56GM TUBE. TP SCH ×3 (07:52→19:49)
[2018-09-12] MEDS: OMEGA-3 FATTY ACIDS/FISH OIL 1,000 MG CAPSULE. PO SCH (07:52)
[2018-09-12] MEDS: NYSTATIN TOPICAL POWDER 15GM BOTTLE. TP SCH ×2 (07:53→19:49)
[2018-09-12 10:26] LABS: BASO % 0 % (0-3); EOS % 0 % (0-3); HEMATOCRIT 39.2 % (39.0-53.0); HEMOGLOBIN 13.1 g/dL (13.0-17.5); LYMPH # 1.1 x10^3/uL (1.0-4.8); LYMPH % 10 % (24-48); MEAN CORPUSCULAR HEMOGLOBIN 30 pg (25-35); MEAN CORPUSCULAR HGB CONC 33 g/dL (31-37); MEAN CORPUSCULAR VOLUME 90 fL (79-100); MONO # 1.2 x10^3/uL (0.0-1.1); MONO % 11 % (0-9); NEUT # 8.1 x10^3uL (1.8-7.7); NEUT % 77 % (31-73); PLATELET COUNT 327 x10^3/uL (140-400); RED BLOOD COUNT 4.36 x10^6/uL (4.30-5.70); RED CELL DISTRIBUTION WIDTH 13.5 % (11.5-14.5); WHITE BLOOD COUNT 10.4 x10^3/uL (4.0-11.0)
[2018-09-12 12:48] LABS: ALBUMIN 3.4 g/dL (3.4-5.0); ALBUMIN/GLOBULIN RATIO 0.9 (1.0-1.7); CALCIUM 8.8 mg/dL (8.5-10.1); CREATININE 2.2 mg/dL (0.7-1.3); GFR 29.7; TOTAL BILIRUBIN 0.4 mg/dL (0.2-1.0); TOTAL PROTEIN 7.4 g/dL (6.4-8.2)
[2018-09-12 14:03] LABS: POTASSIUM 3.5 mmol/L (3.5-5.1)
[2018-09-12 16:13] VITALS: BP 139/90
[2018-09-12] MEDS: MIRTAZAPINE 7.5 MG TABLET. PO SCH (19:48)
--- NOTE | 2018-09-12 22:41 | PDOC ---
Exam Note: Maurice Note: Please also refer to the separate dictated note~for this date of service dictated separately.~Patient seen individually. Discussed the patient with Nursing staff reviewed the chart.~Reviewed interim history and current functioning. Reviewed vital signs,~Labs/ Radiology~and current medications noted below. Continue current treatment with the changes noted in the dictated addendum note Assessment: Vital Signs: Vital Signs Date Time Temp Pulse Resp B/P (MAP) Pulse Ox O2 Delivery O2 Flow Rate FiO2 09/12/18 16:13 99.0 64 18 139/90 (106) 99 Room Air I&O Intake and Output 09/12/18 07:00 Intake Total 560 ml Balance 560 ml Intake Oral 560 ml # Voids 1 # Bowel Movements 2 Labs: Laboratory Tests Test 09/12/18 10:19 White Blood Count 10.4 x10^3/uL (4.0-11.0) Red Blood Count 4.36 x10^6/uL (4.30-5.70) Hemoglobin 13.1 g/dL (13.0-17.5) Hematocrit 39.2 % (39.0-53.0) Mean Corpuscular Volume 90 fL (79-100) Mean Corpuscular Hemoglobin 30 pg (25-35) Mean Corpuscular Hemoglobin Concent 33 g/dL (31-37) Red Cell Distribution Width 13.5 % (11.5-14.5) Platelet Count 327 x10^3/uL (140-400) Neutrophils (%) (Auto) 77 % (31-73) H Lymphocytes (%) (Auto) 10 % (24-48) L Monocytes (%) (Auto) 11 % (0-9) H Eosinophils (%) (Auto) 0 % (0-3) Basophils (%) (Auto) 0 % (0-3) Neutrophils # (Auto) 8.1 x10^3uL (1.8-7.7) H Lymphocytes # (Auto) 1.1 x10^3/uL (1.0-4.8) Monocytes # (Auto) 1.2 x10^3/uL (0.0-1.1) H Eosinophils # (Auto) 0.0 x10^3/uL (0.0-0.7) Basophils # (Auto) 0.0 x10^3/uL (0.0-0.2) Sodium Level 141 mmol/L (136-145) Potassium Level 3.5 mmol/L (3.5-5.1) Chloride Level 102 mmol/L (98-107) Carbon Dioxide Level 30 mmol/L (21-32) Anion Gap 9 (6-14) Blood Urea Nitrogen 19 mg/dL (8-26) Creatinine 2.2 mg/dL (0.7-1.3) H Estimated GFR (Cockcroft-Gault) 29.7 BUN/Creatinine Ratio 9 (6-20) Glucose Level 130 mg/dL (70-99) H Calcium Level 8.8 mg/dL (8.5-10.1) Total Bilirubin 0.4 mg/dL (0.2-1.0) Aspartate Amino Transferase (AST) 23 U/L (15-37) Alanine Aminotransferase (ALT) 23 U/L (16-63) Alkaline Phosphatase 70 U/L (46-116) Total Protein 7.4 g/dL (6.4-8.2) Albumin 3.4 g/dL (3.4-5.0) Albumin/Globulin Ratio 0.9 (1.0-1.7) L Current Medications: Meds: Current Medications Olanzapine (ZyPREXA ZYDIS) 2.5 mg PRN Q2HR PRN PO AGITATION/PSYCHOSIS Last administered on 09/07/18 17:54; Start 08/26/18 at 17:00 Ciprofloxacin 1 drop Q2HR OU Last administered on 08/28/18 16:28; Start at 18:00; Stop 08/28/18 at 18:20; Status DC Acetaminophen (Tylenol) 650 mg PRN Q6HRS PRN PO PAIN / TEMP Last administered on 09/10/18 13:00; Start 08/26/18 at 17:45 Multi-Ingredient Ointment (Analgesic [place]) 1 geraldo QIDPRN PRN TP MUSCLE PAIN; Start 08/26/18 at 17:45 Donepezil HCl (Aricept) 10 mg QHS PO Last administered on 09/05/18 19:36; Start 08/26/18 at 21:00; Stop 09/06/18 at 16:57; Status DC Al Hydroxide/Mg Hydroxide (Mylanta Plus Xs) 30 ml QIDPRN PRN PO DYSPEPSIA; Start 08/26/18 at 18:15; Stop 08/26/18 at 18:15; Status DC Memantine (Namenda) 10 mg DAILY PO Last administered on 09/06/18 07:55; Start 08/27/18 at 09:00; Stop 09/06/18 at 16:57; Status DC Artificial Tears (Refresh Classic) 1 drop PRN TID PRN OU DRY EYE; Start at 18:15 Vitamin D (Vitamin D3) 500 unit DAILY PO Last administered on 09/12/18 07:51; Start 08/27/18 at 09:00 Lactobacillus Rhamnosus (Culturelle) 1 cap BID PO Last administered on 19:48; Start 08/26/18 at 21:00 Magnesium Hydroxide (Milk Of Magnesia) 2,400 mg PRN QHS PRN PO CONSTIPATION; Start 08/26/18 at 18:15 Fish Oil (Fish Oil) 1,000 mg DAILY PO Last administered on 09/12/18 07:52; Start 08/27/18 at 09:00 Pantoprazole Sodium (Protonix) 40 mg DAILY PO Last administered on 09/12/18 07: 51; Start 08/27/18 at 09:00 Al Hydroxide/Mg Hydroxide (Mylanta Plus Xs) 15 ml QIDPRN PRN PO DYSPEPSIA; Start 08/26/18 at 18:15 Divalproex Sodium (Depakote Sprinkles) 125 mg BIDWMEALS PO Last administered on 08/30/18 16:21; Start 08/28/18 at 08:00; Stop 08/30/18 at 18:24; Status DC Amlodipine Besylate (Norvasc) 5 mg DAILY PO Last administered on 09/12/18 07:52 ; Start 08/29/18 at 09:00 Furosemide (Lasix) 40 mg DAILY PO Last administered on 09/12/18 07:51; Start at 09:00 Nystatin (Nystop) 1 geraldo BID TP Last administered on 09/12/18 19:49; Start 08/30 at 09:00 Divalproex Sodium (Depakote Sprinkles) 250 mg TID PO Last administered on 13:46; Start 08/30/18 at 21:00; Stop 09/03/18 at 18:02; Status DC Divalproex Sodium (Depakote Sprinkles) 250 mg 0900,1300 PO Last administered on 09/12/18 07:50; Start 09/04/18 at 09:00; Stop 09/12/18 at 11:22; Status DC Divalproex Sodium (Depakote Sprinkles) 500 mg HS PO Last administered on 20:27; Start 09/03/18 at 21:00; Stop 09/12/18 at 11:22; Status DC Mirtazapine (Remeron) 7.5 mg QHS PO Last administered on 09/12/18 19:48; Start 09/04/18 at 21:00 Quetiapine Fumarate (SEROquel) 12.5 mg BIDAFTMEAL PO Last administered on 17:09; Start 09/07/18 at 09:00 Trazodone HCl (Desyrel) 50 mg PRN QHS PRN PO INSOMNIA Last administered on 21:03; Start 09/08/18 at 18:45 Fluconazole (Diflucan) 100 mg DAILY PO Last administered on 09/12/18 07:51; Start 09/11/18 at 09:00; Stop 09/20/18 at 08:59 Vitamin A/Vitamin D (Vitamin A & D Ointment) 1 geraldo TID TP Last administered on 09/12/18 19:49; Start 09/11/18 at 09:00 Divalproex Sodium (Depakote Sprinkles) 750 mg HS PO Last administered on 19:48; Start 09/12/18 at 21:00 Divalproex Sodium (Depakote Sprinkles) 250 mg 1300 PO ; Start 09/13/18 at 13:00 Active Scripts Active Reported Refresh Optive Eye Drops (Carboxymethylcellulos/Glycerin) 15 Ml Drops 1 Drop EACHEYE TID PRN PRN Acidophilus (Lactobacillus Acidophilus) 1 Each Capsule 1 Each PO BID 7 Days Analgesic [place] (Methyl Salicylate/Menthol) 28 Gm Oint...g. 1 Geraldo TP QIDPRN PRN Milk Of Magnesia (Magnesium Hydroxide) 2,400 Mg/10 Ml Oral.susp 2,400 Mg PO HS PRN Advanced Antacid Liquid (Mag Hydrox/Al Hydrox/Simeth) 355 Ml Oral.susp 15 Ml PO QIDPRN PRN Tylenol (Acetaminophen) 325 Mg Tablet 2 Tab PO PRN Q6HRS PRN Vitamin D (Cholecalciferol (Vitamin D3)) 400 Unit/1 Ml Drops 400 Unit PO DAILY Protonix (Pantoprazole Sodium) 40 Mg Tablet.dr 40 Mg PO DAILY Memantine HCl 10 Mg Tablet 10 Mg PO DAILY Fish Oil 1,200 Mg Softgel ([place]-3S/Dha/Epa/Fish Oil) 1 Each Capsule 1 Each PO DAILY Aricept (Donepezil Hcl) 10 Mg Tablet 10 Mg PO QHS I have reviewed the current psychotropics carefully including drug interactions. Risk benefit ratio favors no change other than as noted in my dictated progress note. Diagnosis: Problems: (1) Dehydration (2) Hypotension (3) Anxiety disorder (4) Impulse control disorder (5) Vascular dementia with depressed mood (6) Vascular dementia with delusions (7) Alzheimer's dementia (8) Vascular dementia with behavioral disturbance (9) Major neurocognitive disorder ZACK FERREIRA MD Sep 12, 2018 22:41
[2018-09-13 05:36] VITALS: BP 152/82
[2018-09-13] MEDS: OMEGA-3 FATTY ACIDS/FISH OIL 1,000 MG CAPSULE. PO SCH (07:55)
[2018-09-13] MEDS: FUROSEMIDE 40 MG TABLET PO SCH (07:57)
[2018-09-13] MEDS: PANTOPRAZOLE 40 MG TABLET. PO SCH (07:57)
[2018-09-13] MEDS: amLODIPine BESYLATE 5 MG TABLET PO SCH (07:57)
[2018-09-13] MEDS: CHOLECALCIFEROL (VITAMIN D3) 1,000 UNIT TABLET PO SCH (07:57)
[2018-09-13] MEDS: QUEtiapine 25 MG TABLET. PO SCH ×2 (07:57→18:04)
[2018-09-13] MEDS: FLUCONAZOLE 100 MG TABLET. PO SCH (07:57)
[2018-09-13] MEDS: LACTOBACILLUS RHAMNOSUS GG 1 CAPSULE. PO SCH ×2 (07:59→19:37)
[2018-09-13] MEDS: VITS A & D/LANOLIN TOPICAL OINTMENT 56GM TUBE. TP SCH ×3 (07:59→19:37)
[2018-09-13] MEDS: NYSTATIN TOPICAL POWDER 15GM BOTTLE. TP SCH ×2 (07:59→19:37)
[2018-09-13] MEDS: DIVALPROEX 125 MG CAP.SPRINK PO SCH ×2 (13:15→19:38)
[2018-09-13 16:28] VITALS: BP 130/96
--- NOTE | 2018-09-13 18:19 | PN ---
DATE: 09/11/2018 PSYCHIATRIC PROGRESS NOTE This late entry 09/11/2018 covers elements not covered in my initial note. SUBJECTIVE: I met with the patient in the evening. The patient slept 8-3/4 hours previous night. He is reportedly doing quite well per nursing report. He is not aggressive, remains very confused, somewhat drowsy. REVIEW OF SYSTEMS: No CV, , pulmonary, eye, ENT system symptoms on review. Reliability poor. MENTAL STATUS EXAM: Oriented to himself. Insight, judgment, recent and remote memory, attention, concentration, fund of knowledge poor, consistent with his diagnosis mentioned in my initial note. PLAN: No change from initial note. MAN Jaime FERREIRA MD DR: JE/carter JOB#: [id number] / [id number]
[2018-09-13] MEDS: MIRTAZAPINE 7.5 MG TABLET. PO SCH (19:37)
--- NOTE | 2018-09-13 22:36 | PDOC ---
Exam Note: Maurice Note: Please also refer to the separate dictated note~for this date of service dictated separately.~Patient seen individually. Discussed the patient with Nursing staff reviewed the chart.~Reviewed interim history and current functioning. Reviewed vital signs,~Labs/ Radiology~and current medications noted below. Continue current treatment with the changes noted in the dictated addendum note Assessment: Vital Signs: Vital Signs Date Time Temp Pulse Resp B/P (MAP) Pulse Ox O2 Delivery O2 Flow Rate FiO2 09/13/18 16:28 98.0 96 18 130/96 (107) 98 09/13/18 05:36 Room Air I&O Intake and Output 09/13/18 07:00 Intake Total 720 ml Balance 720 ml Intake Oral 720 ml # Bowel Movements 1 Current Medications: Meds: Current Medications Olanzapine (ZyPREXA ZYDIS) 2.5 mg PRN Q2HR PRN PO AGITATION/PSYCHOSIS Last administered on 09/13/18 08:15; Start 08/26/18 at 17:00 Ciprofloxacin 1 drop Q2HR OU Last administered on 08/28/18 16:28; Start at 18:00; Stop 08/28/18 at 18:20; Status DC Acetaminophen (Tylenol) 650 mg PRN Q6HRS PRN PO PAIN / TEMP Last administered on 09/10/18 13:00; Start 08/26/18 at 17:45 Multi-Ingredient Ointment (Analgesic [place]) 1 geraldo QIDPRN PRN TP MUSCLE PAIN; Start 08/26/18 at 17:45 Donepezil HCl (Aricept) 10 mg QHS PO Last administered on 09/05/18at 19:36; Start 08/26/18 at 21:00; Stop 09/06/18 at 16:57; Status DC Al Hydroxide/Mg Hydroxide (Mylanta Plus Xs) 30 ml QIDPRN PRN PO DYSPEPSIA; Start 08/26/18 at 18:15; Stop 08/26/18 at 18:15; Status DC Memantine (Namenda) 10 mg DAILY PO Last administered on 09/06/18at 07:55; Start 08/27/18 at 09:00; Stop 09/06/18 at 16:57; Status DC Artificial Tears (Refresh Classic) 1 drop PRN TID PRN OU DRY EYE; Start at 18:15 Vitamin D (Vitamin D3) 500 unit DAILY PO Last administered on 09/13/18 07:57; Start 08/27/18 at 09:00 Lactobacillus Rhamnosus (Culturelle) 1 cap BID PO Last administered on 19:37; Start 08/26/18 at 21:00 Magnesium Hydroxide (Milk Of Magnesia) 2,400 mg PRN QHS PRN PO CONSTIPATION; Start 08/26/18 at 18:15 Fish Oil (Fish Oil) 1,000 mg DAILY PO Last administered on 09/13/18 07:55; Start 08/27/18 at 09:00 Pantoprazole Sodium (Protonix) 40 mg DAILY PO Last administered on 09/13/18 07: 57; Start 08/27/18 at 09:00 Al Hydroxide/Mg Hydroxide (Mylanta Plus Xs) 15 ml QIDPRN PRN PO DYSPEPSIA; Start 08/26/18 at 18:15 Divalproex Sodium (Depakote Sprinkles) 125 mg BIDWMEALS PO Last administered on 08/30/18 16:21; Start 08/28/18 at 08:00; Stop 08/30/18 at 18:24; Status DC Amlodipine Besylate (Norvasc) 5 mg DAILY PO Last administered on 09/13/18 07:57 ; Start 08/29/18 at 09:00 Furosemide (Lasix) 40 mg DAILY PO Last administered on 09/13/18 07:57; Start at 09:00 Nystatin (Nystop) 1 geraldo BID TP Last administered on 09/13/18 19:37; Start 08/30 at 09:00 Divalproex Sodium (Depakote Sprinkles) 250 mg TID PO Last administered on 13:46; Start 08/30/18 at 21:00; Stop 09/03/18 at 18:02; Status DC Divalproex Sodium (Depakote Sprinkles) 250 mg 0900,1300 PO Last administered on 09/12/18 07:50; Start 09/04/18 at 09:00; Stop 09/12/18 at 11:22; Status DC Divalproex Sodium (Depakote Sprinkles) 500 mg HS PO Last administered on 20:27; Start 09/03/18 at 21:00; Stop 09/12/18 at 11:22; Status DC Mirtazapine (Remeron) 7.5 mg QHS PO Last administered on 09/13/18 19:37; Start 09/04/18 at 21:00 Quetiapine Fumarate (SEROquel) 12.5 mg BIDAFTMEAL PO Last administered on 18:04; Start 09/07/18 at 09:00 Trazodone HCl (Desyrel) 50 mg PRN QHS PRN PO INSOMNIA Last administered on 21:03; Start 09/08/18 at 18:45 Fluconazole (Diflucan) 100 mg DAILY PO Last administered on 09/13/18 07:57; Start 09/11/18 at 09:00; Stop 09/20/18 at 08:59 Vitamin A/Vitamin D (Vitamin A & D Ointment) 1 geraldo TID TP Last administered on 09/13/18 19:37; Start 09/11/18 at 09:00 Divalproex Sodium (Depakote Sprinkles) 750 mg HS PO Last administered on 19:38; Start 09/12/18 at 21:00 Divalproex Sodium (Depakote Sprinkles) 250 mg 1300 PO Last administered on 13:15; Start 09/13/18 at 13:00 Active Scripts Active Reported Refresh Optive Eye Drops (Carboxymethylcellulos/Glycerin) 15 Ml Drops 1 Drop EACHEYE TID PRN PRN Acidophilus (Lactobacillus Acidophilus) 1 Each Capsule 1 Each PO BID 7 Days Analgesic [place] (Methyl Salicylate/Menthol) 28 Gm Oint...g. 1 Geraldo TP QIDPRN PRN Milk Of Magnesia (Magnesium Hydroxide) 2,400 Mg/10 Ml Oral.susp 2,400 Mg PO HS PRN Advanced Antacid Liquid (Mag Hydrox/Al Hydrox/Simeth) 355 Ml Oral.susp 15 Ml PO QIDPRN PRN Tylenol (Acetaminophen) 325 Mg Tablet 2 Tab PO PRN Q6HRS PRN Vitamin D (Cholecalciferol (Vitamin D3)) 400 Unit/1 Ml Drops 400 Unit PO DAILY Protonix (Pantoprazole Sodium) 40 Mg Tablet.dr 40 Mg PO DAILY Memantine HCl 10 Mg Tablet 10 Mg PO DAILY Fish Oil 1,200 Mg Softgel ([place]-3S/Dha/Epa/Fish Oil) 1 Each Capsule 1 Each PO DAILY Aricept (Donepezil Hcl) 10 Mg Tablet 10 Mg PO QHS I have reviewed the current psychotropics carefully including drug interactions. Risk benefit ratio favors no change other than as noted in my dictated progress note. Diagnosis: Problems: (1) Dehydration (2) Hypotension (3) Anxiety disorder (4) Impulse control disorder (5) Vascular dementia with depressed mood (6) Vascular dementia with delusions (7) Alzheimer's dementia (8) Vascular dementia with behavioral disturbance (9) Major neurocognitive disorder ZACK FERREIRA MD Sep 13, 2018 22:36
--- NOTE | 2018-09-13 23:24 | PN ---
DATE: 09/12/2018 This late entry for 09/12/2018 covers elements not covered in my initial note. SUBJECTIVE: I met with the patient in the evening. The patient was staffed at a treatment team meeting with the entire team in the morning. Appetite 60%, sleeping 6-1/2 hours, combative, agitated with cares, somewhat sedated during the day. REVIEW OF SYSTEMS: No CV, , pulmonary, eye, ENT system symptoms on review. Reliability poor. MENTAL STATUS EXAM: Oriented to himself. Insight, judgment, recent and remote memory, attention, concentration, fund of knowledge poor, consistent with his diagnosis mentioned in my initial note. PLAN: We will change the Depakote from 250 b.i.d., 500 at bedtime to 250 once a day in the daytime and 750 at night. Valproic acid level is therapeutic at 64. Changing the Depakote to the nighttime will help with daytime sedation and we will reassess on other adjustments after this. ZACK FERREIRA MD DR: JE/carter JOB#: [id number] / [id number]
[2018-09-14] MEDS: ACETAMINOPHEN 325 MG TABLET PO PRN (05:30)
[2018-09-14 06:06] VITALS: BP 131/85
[2018-09-14 07:30] LABS: BASO % 0 % (0-3); EOS % 0 % (0-3); HEMATOCRIT 37.8 % (39.0-53.0); HEMOGLOBIN 12.8 g/dL (13.0-17.5); LYMPH # 0.9 x10^3/uL (1.0-4.8); LYMPH % 6 % (24-48); MEAN CORPUSCULAR HEMOGLOBIN 30 pg (25-35); MEAN CORPUSCULAR HGB CONC 34 g/dL (31-37); MEAN CORPUSCULAR VOLUME 89 fL (79-100); MONO # 1.7 x10^3/uL (0.0-1.1); MONO % 12 % (0-9); NEUT # 11.2 x10^3uL (1.8-7.7); NEUT % 81 % (31-73); PLATELET COUNT 343 x10^3/uL (140-400); RED BLOOD COUNT 4.25 x10^6/uL (4.30-5.70); WHITE BLOOD COUNT 13.8 x10^3/uL (4.0-11.0)
[2018-09-14 07:51] LABS: ALBUMIN 3.2 g/dL (3.4-5.0); ALBUMIN/GLOBULIN RATIO 0.7 (1.0-1.7); CREATININE 2.3 mg/dL (0.7-1.3); GFR 28.2; POTASSIUM 3.3 mmol/L (3.5-5.1); TOTAL BILIRUBIN 0.5 mg/dL (0.2-1.0); TOTAL PROTEIN 7.6 g/dL (6.4-8.2)
--- NOTE | 2018-09-14 07:52 | RAD ---
AP view of the chest. Comparison: Chest radiograph dated 09/01/2018. Indication: fever Findings: Unchanged low lung volume. No new consolidation. New opacity seen in the left lung base is likely consistent with the left heart border given the rotation on prior exam. Unchanged pulmonary vasculature. No pleural effusion or pneumothorax. The cardiomediastinal silhouette and great vessels are unchanged. No acute osseous abnormality. IMPRESSION: No new consolidation. Electronically signed by: Jeet Bravo MD (09/14/2018 7:48 AM) [facility]
[2018-09-14 08:10] LABS: % ATYL 1 % (0-0); % BANDS 10 % (0-9); % LYMPHS 6 % (24-48); % METAS 1 % (0-0); % MONOS 9 % (0-10); % MYELOS 1 % (0-0); % SEGS 72 % (35-66); PLT ESTIMATE ADEQUATE (ADEQUATE)
[2018-09-14 08:12] LABS: POLYCHROMASIA PRESENT
[2018-09-14 08:13] LABS: TOXIC GRANULATION PRESENT; TOXIC VACUOLATION PRESENT
[2018-09-14] MEDS: OMEGA-3 FATTY ACIDS/FISH OIL 1,000 MG CAPSULE. PO SCH (09:00)
[2018-09-14] MEDS: CHOLECALCIFEROL (VITAMIN D3) 1,000 UNIT TABLET PO SCH (09:03)
[2018-09-14] MEDS: QUEtiapine 25 MG TABLET. PO SCH ×2 (09:03→18:10)
[2018-09-14] MEDS: FUROSEMIDE 40 MG TABLET PO SCH (09:03)
[2018-09-14] MEDS: amLODIPine BESYLATE 5 MG TABLET PO SCH (09:04)
[2018-09-14] MEDS: PANTOPRAZOLE 40 MG TABLET. PO SCH (09:04)
[2018-09-14] MEDS: FLUCONAZOLE 100 MG TABLET. PO SCH (09:04)
[2018-09-14] MEDS: LACTOBACILLUS RHAMNOSUS GG 1 CAPSULE. PO SCH ×2 (09:04→19:47)
[2018-09-14] MEDS: VITS A & D/LANOLIN TOPICAL OINTMENT 56GM TUBE. TP SCH ×3 (09:07→19:48)
[2018-09-14] MEDS: NYSTATIN TOPICAL POWDER 15GM BOTTLE. TP SCH ×2 (09:07→19:47)
[2018-09-14 10:23] LABS: BACTERIA,URINE FEW /HPF (0-FEW); BILIRUBIN,URINE NEG (NEG); CLARITY,URINE HAZY; COLOR,URINE AMBER; GLUCOSE,URINE NEG (NEG); HYALINE CASTS, URINE OCC /HPF; NITRITE,URINE NEG (NEG); SQUAMOUS EPITHELIAL CELL,UR FEW /LPF; UROBILINOGEN,URINE 0.2 mg/dL (0.2 mg/dL)
[2018-09-14] MEDS: DIVALPROEX 125 MG CAP.SPRINK PO SCH ×2 (12:28→19:47)
[2018-09-14] MEDS ORDERED: IV NORMAL SALINE 1,000ML 1,000 ML IV ONE (16:30)
[2018-09-14 16:53] VITALS: BP 126/83
[2018-09-14] MEDS: POTASSIUM CL 20MEQ D5-0.45NACL 1,000 ML IV SCH (19:42)
[2018-09-14] MEDS: MIRTAZAPINE 7.5 MG TABLET. PO SCH (19:48)
[2018-09-14 20:14] VITALS: BP 104/74
[2018-09-15 01:26] VITALS: BP 107/53
[2018-09-15] MEDS: ACETAMINOPHEN 325 MG TABLET PO PRN (01:26)
[2018-09-15] MEDS: POTASSIUM CL 20MEQ D5-0.45NACL 1,000 ML IV SCH ×2 (04:14→14:17)
[2018-09-15 05:42] VITALS: BP 149/71
[2018-09-15 07:57] LABS: HEMATOCRIT 35.1 % (39.0-53.0); HEMOGLOBIN 11.9 g/dL (13.0-17.5); RED BLOOD COUNT 3.93 x10^6/uL (4.30-5.70); RED CELL DISTRIBUTION WIDTH 12.9 % (11.5-14.5)
[2018-09-15 08:07] LABS: CALCIUM 8.5 mg/dL (8.5-10.1); CREATININE 1.8 mg/dL (0.7-1.3); GFR 37.4; POTASSIUM 3.5 mmol/L (3.5-5.1)
[2018-09-15] MEDS: OMEGA-3 FATTY ACIDS/FISH OIL 1,000 MG CAPSULE. PO SCH (09:00)
[2018-09-15] MEDS: QUEtiapine 25 MG TABLET. PO SCH ×2 (09:00→18:00)
[2018-09-15] MEDS: CHOLECALCIFEROL (VITAMIN D3) 1,000 UNIT TABLET PO SCH (09:00)
[2018-09-15] MEDS: VITS A & D/LANOLIN TOPICAL OINTMENT 56GM TUBE. TP SCH ×3 (09:00→19:43)
[2018-09-15] MEDS: NYSTATIN TOPICAL POWDER 15GM BOTTLE. TP SCH ×2 (09:00→19:43)
[2018-09-15] MEDS: FUROSEMIDE 40 MG TABLET PO SCH (09:00)
[2018-09-15] MEDS: PANTOPRAZOLE 40 MG TABLET. PO SCH (09:00)
[2018-09-15] MEDS: amLODIPine BESYLATE 5 MG TABLET PO SCH (09:00)
[2018-09-15] MEDS: FLUCONAZOLE 100 MG TABLET. PO SCH (09:00)
[2018-09-15] MEDS: LACTOBACILLUS RHAMNOSUS GG 1 CAPSULE. PO SCH ×2 (09:00→19:41)
--- NOTE | 2018-09-15 09:45 | PDOC ---
Exam Note: Maurice Note: Late entry for DOS 09/14/2018. Please also refer to the separate dictated note~ for this date of service dictated separately.~Patient seen individually. Discussed the patient with Nursing staff reviewed the chart.~Reviewed interim history and current functioning. Reviewed vital signs,~Labs/ Radiology~and current medications noted below. Continue current treatment with the changes noted in the dictated addendum note Assessment: Vital Signs: VS - Last 72 Hours, by Label Date Time Temp Pulse Resp B/P (MAP) Pulse Ox O2 Delivery O2 Flow Rate FiO2 09/15/18 05:42 97.2 45 20 149/71 (97) 98 09/15/18 01:26 99.9 108 22 107/53 (71) 98 09/14/18 20:14 98.9 98 20 104/74 (84) 94 09/14/18 16:53 98.3 72 16 126/83 (97) 94 Room Air 09/14/18 09:04 115 131/85 09/14/18 06:06 99.4 115 20 131/85 (100) 100 09/13/18 16:28 98.0 96 18 130/96 (107) 98 09/13/18 07:57 84 152/82 09/13/18 05:36 97.8 84 18 152/82 (105) 97 Room Air 09/12/18 16:13 99.0 64 18 139/90 (106) 99 Room Air Vital Signs Date Time Temp Pulse Resp B/P (MAP) Pulse Ox O2 Delivery O2 Flow Rate FiO2 09/15/18 05:42 97.2 45 20 149/71 (97) 98 09/14/18 16:53 Room Air I&O Intake and Output 09/15/18 07:00 Intake Total 1140 ml Balance 1140 ml Intake Oral 240 ml IV Total 900 ml # Voids 1 # Bowel Movements 2 Labs: Laboratory Tests Test 09/15/18 07:27 White Blood Count 10.0 x10^3/uL (4.0-11.0) Red Blood Count 3.93 x10^6/uL (4.30-5.70) L Hemoglobin 11.9 g/dL (13.0-17.5) L Hematocrit 35.1 % (39.0-53.0) L Mean Corpuscular Volume 89 fL (79-100) Mean Corpuscular Hemoglobin 30 pg (25-35) Mean Corpuscular Hemoglobin Concent 34 g/dL (31-37) Red Cell Distribution Width 12.9 % (11.5-14.5) Platelet Count 313 x10^3/uL (140-400) Sodium Level 143 mmol/L (136-145) Potassium Level 3.5 mmol/L (3.5-5.1) Chloride Level 107 mmol/L (98-107) Carbon Dioxide Level 28 mmol/L (21-32) Anion Gap 8 (6-14) Blood Urea Nitrogen 19 mg/dL (8-26) Creatinine 1.8 mg/dL (0.7-1.3) H Estimated GFR (Cockcroft-Gault) 37.4 Glucose Level 119 mg/dL (70-99) H Calcium Level 8.5 mg/dL (8.5-10.1) Current Medications: Meds: Current Medications Olanzapine (ZyPREXA ZYDIS) 2.5 mg PRN Q2HR PRN PO AGITATION/PSYCHOSIS Last administered on 09/13/18 08:15; Start 08/26/18 at 17:00 Ciprofloxacin 1 drop Q2HR OU Last administered on 08/28/18 16:28; Start at 18:00; Stop 08/28/18 at 18:20; Status DC Acetaminophen (Tylenol) 650 mg PRN Q6HRS PRN PO PAIN / TEMP Last administered on 09/15/18 01:26; Start 08/26/18 at 17:45 Multi-Ingredient Ointment (Analgesic [place]) 1 geraldo QIDPRN PRN TP MUSCLE PAIN; Start 08/26/18 at 17:45 Donepezil HCl (Aricept) 10 mg QHS PO Last administered on 09/05/18 19:36; Start 08/26/18 at 21:00; Stop 09/06/18 at 16:57; Status DC Al Hydroxide/Mg Hydroxide (Mylanta Plus Xs) 30 ml QIDPRN PRN PO DYSPEPSIA; Start 08/26/18 at 18:15; Stop 08/26/18 at 18:15; Status DC Memantine (Namenda) 10 mg DAILY PO Last administered on 09/06/18at 07:55; Start 08/27/18 at 09:00; Stop 09/06/18 at 16:57; Status DC Artificial Tears (Refresh Classic) 1 drop PRN TID PRN OU DRY EYE; Start at 18:15 Vitamin D (Vitamin D3) 500 unit DAILY PO Last administered on 09/14/18 09:03; Start 08/27/18 at 09:00 Lactobacillus Rhamnosus (Culturelle) 1 cap BID PO Last administered on 19:47; Start 08/26/18 at 21:00 Magnesium Hydroxide (Milk Of Magnesia) 2,400 mg PRN QHS PRN PO CONSTIPATION; Start 08/26/18 at 18:15 Fish Oil (Fish Oil) 1,000 mg DAILY PO Last administered on 09/13/18 07:55; Start 08/27/18 at 09:00 Pantoprazole Sodium (Protonix) 40 mg DAILY PO Last administered on 09/14/18 09: 04; Start 08/27/18 at 09:00 Al Hydroxide/Mg Hydroxide (Mylanta Plus Xs) 15 ml QIDPRN PRN PO DYSPEPSIA; Start 08/26/18 at 18:15 Divalproex Sodium (Depakote Sprinkles) 125 mg BIDWMEALS PO Last administered on 08/30/18 16:21; Start 08/28/18 at 08:00; Stop 08/30/18 at 18:24; Status DC Amlodipine Besylate (Norvasc) 5 mg DAILY PO Last administered on 09/14/18 09:04 ; Start 08/29/18 at 09:00 Furosemide (Lasix) 40 mg DAILY PO Last administered on 09/14/18 09:03; Start at 09:00 Nystatin (Nystop) 1 geraldo BID TP Last administered on 09/14/18 19:47; Start 08/30 at 09:00 Divalproex Sodium (Depakote Sprinkles) 250 mg TID PO Last administered on 13:46; Start 08/30/18 at 21:00; Stop 09/03/18 at 18:02; Status DC Divalproex Sodium (Depakote Sprinkles) 250 mg 0900,1300 PO Last administered on 09/12/18 07:50; Start 09/04/18 at 09:00; Stop 09/12/18 at 11:22; Status DC Divalproex Sodium (Depakote Sprinkles) 500 mg HS PO Last administered on 20:27; Start 09/03/18 at 21:00; Stop 09/12/18 at 11:22; Status DC Mirtazapine (Remeron) 7.5 mg QHS PO Last administered on 09/13/18 19:37; Start 09/04/18 at 21:00 Quetiapine Fumarate (SEROquel) 12.5 mg BIDAFTMEAL PO Last administered on 09:03; Start 09/07/18 at 09:00 Trazodone HCl (Desyrel) 50 mg PRN QHS PRN PO INSOMNIA Last administered on 21:03; Start 09/08/18 at 18:45 Fluconazole (Diflucan) 100 mg DAILY PO Last administered on 09/14/18 09:04; Start 09/11/18 at 09:00; Stop 09/20/18 at 08:59 Vitamin A/Vitamin D (Vitamin A & D Ointment) 1 geraldo TID TP Last administered on 09/14/18 19:48; Start 09/11/18 at 09:00 Divalproex Sodium (Depakote Sprinkles) 750 mg HS PO Last administered on 19:47; Start 09/12/18 at 21:00 Divalproex Sodium (Depakote Sprinkles) 250 mg 1300 PO Last administered on 13:15; Start 09/13/18 at 13:00 Sodium Chloride 1,000 ml @ 1,000 mls/hr 1X ONCE IV Last administered on 17:05; Start 09/14/18 at 16:30; Stop 09/14/18 at 17:30; Status DC Potassium Chloride/Dextrose/ Sod Cl 1,000 ml @ 100 mls/hr Q10H IV Last administered on 09/15/18 04:14; Start 09/14/18 at 19:00 Active Scripts Active Reported Refresh Optive Eye Drops (Carboxymethylcellulos/Glycerin) 15 Ml Drops 1 Drop EACHEYE TID PRN PRN Acidophilus (Lactobacillus Acidophilus) 1 Each Capsule 1 Each PO BID 7 Days Analgesic [place] (Methyl Salicylate/Menthol) 28 Gm Oint...g. 1 Geraldo TP QIDPRN PRN Milk Of Magnesia (Magnesium Hydroxide) 2,400 Mg/10 Ml Oral.susp 2,400 Mg PO HS PRN Advanced Antacid Liquid (Mag Hydrox/Al Hydrox/Simeth) 355 Ml Oral.susp 15 Ml PO QIDPRN PRN Tylenol (Acetaminophen) 325 Mg Tablet 2 Tab PO PRN Q6HRS PRN Vitamin D (Cholecalciferol (Vitamin D3)) 400 Unit/1 Ml Drops 400 Unit PO DAILY Protonix (Pantoprazole Sodium) 40 Mg Tablet.dr 40 Mg PO DAILY Memantine HCl 10 Mg Tablet 10 Mg PO DAILY Fish Oil 1,200 Mg Softgel ([place]-3S/Dha/Epa/Fish Oil) 1 Each Capsule 1 Each PO DAILY Aricept (Donepezil Hcl) 10 Mg Tablet 10 Mg PO QHS I have reviewed the current psychotropics carefully including drug interactions. Risk benefit ratio favors no change other than as noted in my dictated progress note. Diagnosis: Problems: (1) Dehydration (2) Hypotension (3) Anxiety disorder (4) Impulse control disorder (5) Vascular dementia with depressed mood (6) Vascular dementia with delusions (7) Alzheimer's dementia (8) Vascular dementia with behavioral disturbance (9) Major neurocognitive disorder ZACK FERREIRA MD Sep 15, 2018 09:45
--- NOTE | 2018-09-15 10:01 | PN ---
DATE: 09/13/2018 PSYCHIATRIC PROGRESS NOTE This late entry 09/13/2018 covers elements not covered in my initial note. SUBJECTIVE: I met with the patient in the evening. The patient slept 8 hours previous night. He has been somewhat sedated, but not aggressive, confused. REVIEW OF SYSTEMS: No CV, , pulmonary, eye, ENT system symptoms on review. Reliability poor. MENTAL STATUS EXAM: Oriented to himself. Insight, judgment, recent and remote memory, attention, concentration, fund of knowledge poor, consistent with his diagnosis. LABORATORY DATA: Reviewed. IMPRESSION: Unchanged from initial note. PLAN: No change from initial note. We have reduced the Depakote during the day and we will adjust to reduce his daytime sedation. Rest unchanged from initial note. MAN Jaime FERREIRA MD DR: JE/carter JOB#: [id number] / [id number]
[2018-09-15] MEDS: DIVALPROEX 125 MG CAP.SPRINK PO SCH ×2 (14:16→19:41)
[2018-09-15 16:41] VITALS: BP 147/90
[2018-09-15] MEDS: MIRTAZAPINE 7.5 MG TABLET. PO SCH (19:41)
[2018-09-15] MEDS ORDERED: DIVA125C2 PO ×2 (22:20→22:22)
[2018-09-15] MEDS ORDERED: FURO-68 PO (22:25)
[2018-09-15] MEDS ORDERED: FLUC100T7 PO (22:25)
[2018-09-15] MEDS ORDERED: NYST15PO9 TP (22:26)
[2018-09-15] MEDS ORDERED: OLAN5TAB5 PO (22:26)
[2018-09-15] MEDS ORDERED: CARB15DR3 EACHEYE (22:27)
[2018-09-15] MEDS ORDERED: POLY15DR27 OP (22:28)
[2018-09-15] MEDS ORDERED: VITS56.7 TP (22:29)
[2018-09-15] MEDS ORDERED: AMLO5TAB4 PO (22:29)
[2018-09-15] MEDS ORDERED: TRAZ-120 PO (22:30)
--- NOTE | 2018-09-15 22:57 | PDOC ---
Exam Note: Maurice Note: Please also refer to the separate dictated note~for this date of service dictated separately.~Patient seen individually. Discussed the patient with Nursing staff reviewed the chart.~Reviewed interim history and current functioning. Reviewed vital signs,~Labs/ Radiology~and current medications noted below. Continue current treatment with the changes noted in the dictated addendum note Assessment: Vital Signs: Vital Signs Date Time Temp Pulse Resp B/P (MAP) Pulse Ox O2 Delivery O2 Flow Rate FiO2 09/15/18 16:41 97.8 102 20 147/90 (109) 96 Room Air I&O Intake and Output 09/15/18 06:59 Intake Total 1140 ml Balance 1140 ml Intake Oral 240 ml IV Total 900 ml # Voids 1 # Bowel Movements 2 Labs: Laboratory Tests Test 09/15/18 07:27 White Blood Count 10.0 x10^3/uL (4.0-11.0) Red Blood Count 3.93 x10^6/uL (4.30-5.70) L Hemoglobin 11.9 g/dL (13.0-17.5) L Hematocrit 35.1 % (39.0-53.0) L Mean Corpuscular Volume 89 fL (79-100) Mean Corpuscular Hemoglobin 30 pg (25-35) Mean Corpuscular Hemoglobin Concent 34 g/dL (31-37) Red Cell Distribution Width 12.9 % (11.5-14.5) Platelet Count 313 x10^3/uL (140-400) Sodium Level 143 mmol/L (136-145) Potassium Level 3.5 mmol/L (3.5-5.1) Chloride Level 107 mmol/L (98-107) Carbon Dioxide Level 28 mmol/L (21-32) Anion Gap 8 (6-14) Blood Urea Nitrogen 19 mg/dL (8-26) Creatinine 1.8 mg/dL (0.7-1.3) H Estimated GFR (Cockcroft-Gault) 37.4 Glucose Level 119 mg/dL (70-99) H Calcium Level 8.5 mg/dL (8.5-10.1) Current Medications: Meds: Current Medications Olanzapine (ZyPREXA ZYDIS) 2.5 mg PRN Q2HR PRN PO AGITATION/PSYCHOSIS Last administered on 09/13/18at 08:15; Start 08/26/18 at 17:00; Stop 09/15/18 at 22:46; Status DC Ciprofloxacin 1 drop Q2HR OU Last administered on 08/28/18at 16:28; Start at 18:00; Stop 08/28/18 at 18:20; Status DC Acetaminophen (Tylenol) 650 mg PRN Q6HRS PRN PO PAIN / TEMP Last administered on 09/15/18 01:26; Start 08/26/18 at 17:45; Stop 09/15/18 at 22:46; Status DC Multi-Ingredient Ointment (Analgesic [place]) 1 geraldo QIDPRN PRN TP MUSCLE PAIN; Start 08/26/18 at 17:45; Stop 09/15/18 at 22:46; Status DC Donepezil HCl (Aricept) 10 mg QHS PO Last administered on 09/05/18at 19:36; Start 08/26/18 at 21:00; Stop 09/06/18 at 16:57; Status DC Al Hydroxide/Mg Hydroxide (Mylanta Plus Xs) 30 ml QIDPRN PRN PO DYSPEPSIA; Start 08/26/18 at 18:15; Stop 08/26/18 at 18:15; Status DC Memantine (Namenda) 10 mg DAILY PO Last administered on 09/06/18at 07:55; Start 08/27/18 at 09:00; Stop 09/06/18 at 16:57; Status DC Artificial Tears (Refresh Classic) 1 drop PRN TID PRN OU DRY EYE; Start at 18:15; Stop 09/15/18 at 22:46; Status DC Vitamin D (Vitamin D3) 500 unit DAILY PO Last administered on 09/15/18at 09:00; Start 08/27/18 at 09:00; Stop 09/15/18 at 22:46; Status DC Lactobacillus Rhamnosus (Culturelle) 1 cap BID PO Last administered on at 19:41; Start 08/26/18 at 21:00; Stop 09/15/18 at 22:46; Status DC Magnesium Hydroxide (Milk Of Magnesia) 2,400 mg PRN QHS PRN PO CONSTIPATION; Start 08/26/18 at 18:15; Stop 09/15/18 at 22:46; Status DC Fish Oil (Fish Oil) 1,000 mg DAILY PO Last administered on 09/13/18 07:55; Start 08/27/18 at 09:00; Stop 09/15/18 at 22:46; Status DC Pantoprazole Sodium (Protonix) 40 mg DAILY PO Last administered on 09/14/18 09: 04; Start 08/27/18 at 09:00; Stop 09/15/18 at 22:46; Status DC Al Hydroxide/Mg Hydroxide (Mylanta Plus Xs) 15 ml QIDPRN PRN PO DYSPEPSIA; Start 08/26/18 at 18:15; Stop 09/15/18 at 22:46; Status DC Divalproex Sodium (Depakote Sprinkles) 125 mg BIDWMEALS PO Last administered on 08/30/18 16:21; Start 08/28/18 at 08:00; Stop 08/30/18 at 18:24; Status DC Amlodipine Besylate (Norvasc) 5 mg DAILY PO Last administered on 09/15/18 09:00 ; Start 08/29/18 at 09:00; Stop 09/15/18 at 22:46; Status DC Furosemide (Lasix) 40 mg DAILY PO Last administered on 09/15/18 09:00; Start at 09:00; Stop 09/15/18 at 22:46; Status DC Nystatin (Nystop) 1 geraldo BID TP Last administered on 09/15/18 19:43; Start 08/30 at 09:00; Stop 09/15/18 at 22:46; Status DC Divalproex Sodium (Depakote Sprinkles) 250 mg TID PO Last administered on 13:46; Start 08/30/18 at 21:00; Stop 09/03/18 at 18:02; Status DC Divalproex Sodium (Depakote Sprinkles) 250 mg 0900,1300 PO Last administered on 09/12/18 07:50; Start 09/04/18 at 09:00; Stop 09/12/18 at 11:22; Status DC Divalproex Sodium (Depakote Sprinkles) 500 mg HS PO Last administered on 20:27; Start 09/03/18 at 21:00; Stop 09/12/18 at 11:22; Status DC Mirtazapine (Remeron) 7.5 mg QHS PO Last administered on 09/15/18 19:41; Start 09/04/18 at 21:00; Stop 09/15/18 at 22:46; Status DC Quetiapine Fumarate (SEROquel) 12.5 mg BIDAFTMEAL PO Last administered on 09:00; Start 09/07/18 at 09:00; Stop 09/15/18 at 22:46; Status DC Trazodone HCl (Desyrel) 50 mg PRN QHS PRN PO INSOMNIA Last administered on 21:03; Start 09/08/18 at 18:45; Stop 09/15/18 at 22:46; Status DC Fluconazole (Diflucan) 100 mg DAILY PO Last administered on 09/15/18 09:00; Start 09/11/18 at 09:00; Stop 09/15/18 at 22:46; Status DC Vitamin A/Vitamin D (Vitamin A & D Ointment) 1 geraldo TID TP Last administered on 09/15/18 14:00; Start 09/11/18 at 09:00; Stop 09/15/18 at 22:46; Status DC Divalproex Sodium (Depakote Sprinkles) 750 mg HS PO Last administered on 19:41; Start 09/12/18 at 21:00; Stop 09/15/18 at 22:46; Status DC Divalproex Sodium (Depakote Sprinkles) 250 mg 1300 PO Last administered on 14:16; Start 09/13/18 at 13:00; Stop 09/15/18 at 15:02; Status DC Sodium Chloride 1,000 ml @ 1,000 mls/hr 1X ONCE IV Last administered on 17:05; Start 09/14/18 at 16:30; Stop 09/14/18 at 17:30; Status DC Potassium Chloride/Dextrose/ Sod Cl 1,000 ml @ 100 mls/hr Q10H IV Last administered on 09/15/18 04:14; Start 09/14/18 at 19:00; Stop 09/15/18 at 22:46; Status DC Active Scripts Active Reported Trazodone Hcl 50 Mg Tablet 50 Mg PO PRN QHS PRN Norvasc (Amlodipine Besylate) 5 Mg Tablet 5 Mg PO DAILY Vitamin A & D Ointment (Vits A & D/White Pet/Lanolin) 56.7 Gm Oint...g. 1 Geraldo TP TID Artificial Tears (Polyvinyl Alcohol) 15 Ml Drops 1 Drop OP PRN TID PRN Zyprexa Zydis (Olanzapine) 5 Mg Tab.rapdis 2.5 Mg PO PRN Q2HR PRN Nystatin 15 Gm Powder 1 Geraldo TP BID Lasix (Furosemide) 40 Mg Tablet 40 Mg PO DAILY Diflucan (Fluconazole) 100 Mg Tablet 100 Mg PO DAILY Depakote Sprinkle (Divalproex Sodium) 125 Mg Cap.sprink 750 Mg PO QHS Acidophilus (Lactobacillus Acidophilus) 1 Each Capsule 1 Each PO BID 7 Days Analgesic [place] (Methyl Salicylate/Menthol) 28 Gm Oint...g. 1 Geraldo TP QIDPRN PRN Milk Of Magnesia (Magnesium Hydroxide) 2,400 Mg/10 Ml Oral.susp 2,400 Mg PO HS PRN Advanced Antacid Liquid (Mag Hydrox/Al Hydrox/Simeth) 355 Ml Oral.susp 15 Ml PO QIDPRN PRN Tylenol (Acetaminophen) 325 Mg Tablet 650 Mg PO PRN Q6HRS PRN Vitamin D (Cholecalciferol (Vitamin D3)) 400 Unit/1 Ml Drops 500 Unit PO DAILY Protonix (Pantoprazole Sodium) 40 Mg Tablet.dr 40 Mg PO DAILY Fish Oil 1,200 Mg Softgel ([place]-3S/Dha/Epa/Fish Oil) 1 Each Capsule 1 Each PO DAILY I have reviewed the current psychotropics carefully including drug interactions. Risk benefit ratio favors no change other than as noted in my dictated progress note. Diagnosis: Problems: (1) Dehydration (2) Hypotension (3) Anxiety disorder (4) Impulse control disorder (5) Vascular dementia with depressed mood (6) Vascular dementia with delusions (7) Alzheimer's dementia (8) Vascular dementia with behavioral disturbance (9) Major neurocognitive disorder ZACK FERREIRA MD Sep 15, 2018 22:57
--- NOTE | 2018-09-17 01:54 | DS ---
DATE OF DISCHARGE: 09/15/2018 DISCHARGE SUMMARY/PSYCHIATRIC PROGRESS NOTE This is a late entry for 09/15/2018 covers elements not covered in my initial note. REASON FOR ADMISSION: Please refer to the admission history for details. Briefly, the patient is a 73-year-old male, who returns back to us from [facility] after he was medically stabilized. He has a history of severe major neurocognitive disorder, Alzheimer, vascular with delusion, depression. He has been aggressive on [facility], unmanageable, thus prompting this admission. SIGNIFICANT FINDINGS AND CLINICAL COURSE: Following admission, the patient was seen daily individually by myself from a psychiatric standpoint, medical followup with Dr. Khalil. The patient was quite confused, anxious, restless at times, aggressive. Adjustments were made in his psychotropics, seems to be doing better on a combination of Depakote 250 mg at 1300, 750 at bedtime, Remeron 7.5 at bedtime, Seroquel 12.5 mg 0900, 1800, trazodone 50 mg at bedtime p.r.n. insomnia, october repeat x 1. REVIEW OF SYSTEMS: Prior to discharge on 09/15/2018, no CV, , pulmonary, eye, ENT system symptoms on review. Reliability poor. MENTAL STATUS EXAM: Oriented to himself. Insight, judgment, recent and remote memory, attention, concentration, fund of knowledge poor, consistent with his diagnosis. The patient did develop C. diff colitis and was transferred to [facility] per Dr. Khalil. FINAL DIAGNOSES: Major neurocognitive disorder, Alzheimer, vascular with delusion, depression, behavioral disturbance; anxiety disorder, unspecified; impulse control disorder, unspecified, Clostridium difficile colitis. Rest unchanged from admission. DISCHARGE MEDICATIONS: Please refer to the MRAD. Psychiatric and medical followup on [facility] as he is being treated for his C. diff infection. ZACK FERREIRA MD DR: JE/carter JOB#: [id number] / [id number]
--- NOTE | 2018-09-17 04:31 | PN ---
DATE: 09/14/2018 This late entry for 09/14/2018 covers elements not covered in my initial note. SUBJECTIVE: I met with the patient in the evening. The patient has been confused, withdrawn, somewhat medically more compromised, seems to be dehydrated. White cell counts are increased. Chest x-ray and UA are unremarkable. Dr. Khalil is following him medically. REVIEW OF SYSTEMS: No CV, , pulmonary, eye, ENT system symptoms on review. MENTAL STATUS EXAM: Oriented to himself. Insight, judgment, recent and remote memory, attention, concentration, fund of knowledge poor, consistent with his diagnosis mentioned in my initial note. PLAN: No change from initial note. MAN Jaime FERREIRA MD DR: JE/carter JOB#: [id number] / [id number]
[2018-09-23] MEDS ORDERED: LORA-254 PO (14:13)
[2018-09-23] MEDS ORDERED: AMOX500C PO (14:13)
[2018-09-23] MEDS ORDERED: VANC125C3 PO (14:13)
== END 2018-09-15 22:46 | disposition short-term general hospital (02) | DRG 57 ==
LOC: GEROPSY 13:00 → UNDOADMIN 13:00 → GEROPSY 14:25
PROVIDERS: ADMIT Psychiatry & Neurology Psychiatry; ATTEND Psychiatry & Neurology Psychiatry
DX: G30.9 Alzheimer's disease, unspecified (principal); F01.51 Vascular dementia, unspecified severity, with behavioral disturbance; F02.81 Dementia in other diseases classified elsewhere, unspecified severity, with behavioral disturbance; A04.72 Enterocolitis due to Clostridium difficile, not specified as recurrent; F32.9 Major depressive disorder, single episode, unspecified; E86.0 Dehydration; I95.9 Hypotension, unspecified; F63.9 Impulse disorder, unspecified; F41.9 Anxiety disorder, unspecified; N18.3 Chronic kidney disease, stage 3 (moderate); E78.5 Hyperlipidemia, unspecified; K21.9 Gastro-esophageal reflux disease without esophagitis; Z79.899 Other long term (current) drug therapy
CPT/HCPCS: 36415; 71045; 80048; 80053; 80164; 81001; 82947; 85007; 85025; 85027; 87040; 87493; J7030

== ENCOUNTER 2018-09-15 23:08 | Inpatient (IN) | payer MEDICARE ==
[~2018-09-15] VITALS: Ht 182.9 cm; Wt 86.2 kg
[2018-09-15] MEDS: POTASSIUM CL 20MEQ D5-0.45NACL 1,000 ML IV SCH (00:36)
[~2018-09-15 23:08] MED LIST changes: +AMLO5TAB4 PO; +CARB15DR3 EACHEYE; +FLUC100T7 PO; +FURO-68 PO; +LACT1CAP2 PO; +NYST15PO9 TP; +OLAN5TAB5 PO; +POLY15DR27 OP; +TRAZ-120 PO; +VITS56.7 TP
[2018-09-15] MEDS ORDERED: HALOPERIDOL LACT 5 MG/ML VIAL. IM PRN (23:15)
[2018-09-15 23:16] VITALS: BP 148/86
[2018-09-16] MEDS ORDERED: METHYL SALICYLATE/MENTHOL TOPICAL OINTMENT 29GM TUBE. TP PRN (01:30)
[2018-09-16] MEDS ORDERED: MAG HYDROX/AL HYDROX/SIMETH 30 ML ORAL.SUSP PO PRN (01:45)
[2018-09-16] MEDS ORDERED: MAGNESIUM HYDROXIDE 2,400 MG/30 ML ORAL.SUSP. PO PRN (01:45)
[2018-09-16] MEDS ORDERED: POLYVINYL ALCOHOL 1.4% OPHTH SOLUTION 15ML BOTTLE. OU PRN (01:45)
[2018-09-16 05:59] VITALS: BP 139/64
[2018-09-16 07:00] LABS: BASO % 1 % (0-3); EOS # 0.1 x10^3/uL (0.0-0.7); EOS % 1 % (0-3); HEMATOCRIT 34.5 % (39.0-53.0); HEMOGLOBIN 11.6 g/dL (13.0-17.5); LYMPH # 1.4 x10^3/uL (1.0-4.8); LYMPH % 14 % (24-48); MEAN CORPUSCULAR HEMOGLOBIN 30 pg (25-35); MEAN CORPUSCULAR HGB CONC 33 g/dL (31-37); MEAN CORPUSCULAR VOLUME 89 fL (79-100); MONO # 1.4 x10^3/uL (0.0-1.1); MONO % 14 % (0-9); NEUT # 6.8 x10^3uL (1.8-7.7); NEUT % 70 % (31-73); PLATELET COUNT 327 x10^3/uL (140-400); RED BLOOD COUNT 3.88 x10^6/uL (4.30-5.70); WHITE BLOOD COUNT 9.7 x10^3/uL (4.0-11.0)
[2018-09-16 07:16] LABS: ALBUMIN 2.7 g/dL (3.4-5.0); ALBUMIN/GLOBULIN RATIO 0.6 (1.0-1.7); CALCIUM 8.7 mg/dL (8.5-10.1); CREATININE 1.7 mg/dL (0.7-1.3); GFR 39.9; POTASSIUM 3.9 mmol/L (3.5-5.1); TOTAL BILIRUBIN 0.3 mg/dL (0.2-1.0); TOTAL PROTEIN 6.9 g/dL (6.4-8.2)
[2018-09-16] MEDS ORDERED: PANTOPRAZOLE 40 MG TABLET. PO SCH (07:30)
--- NOTE | 2018-09-16 08:21 | NUR ---
IP: patient has c diff, requires contact + precautions.
[2018-09-16] MEDS: amLODIPine BESYLATE 5 MG TABLET PO SCH ×2 (09:00→12:49)
--- NOTE | 2018-09-16 10:08 | NUR ---
0800 PT SLEEPING IN THIS AM. VITALS STABLE. WILL ALLOW PT TO WAKE UP LATER AND TAKE MEDS. WILL CONTINUE TO ASSESS.
[2018-09-16 11:02] VITALS: BP 124/71
[2018-09-16] MEDS: OMEGA-3 FATTY ACIDS/FISH OIL 1,000 MG CAPSULE. PO SCH (12:46)
[2018-09-16] MEDS: FUROSEMIDE 40 MG TABLET PO SCH (12:46)
[2018-09-16] MEDS: LACTOBACILLUS RHAMNOSUS GG 1 CAPSULE. PO SCH ×2 (12:46→19:46)
[2018-09-16] MEDS: FLUCONAZOLE 100 MG TABLET. PO SCH (12:46)
[2018-09-16] MEDS: CHOLECALCIFEROL (VITAMIN D3) 1,000 UNIT TABLET PO SCH (12:46)
[2018-09-16] MEDS: POTASSIUM CL 20MEQ D5-0.45NACL 1,000 ML IV SCH ×2 (12:52→19:56)
[2018-09-16] MEDS: VANCOMYCIN 125 MG/2.5 ML ORAL SOLUTION. PO SCH ×4 (13:00→19:51)
--- NOTE | 2018-09-16 13:37 | HP ---
ADMIT DATE: 09/15/2018 HISTORY OF PRESENT ILLNESS: The patient is a 73-year-old male patient, who was transferred from [facility] on account of being positive for C. diff toxins. Apparently, the patient has had multiple episodes of loose bowel movement and stool was sent, came out to be positive for C. diff toxins and therefore he was transferred to [address] [place] [address] to start treatment with oral to give him in isolation and also to start treatment with oral vancomycin. The patient himself, nonverbal, does not give any useful information. PAST MEDICAL HISTORY: Significant for hypertension, hyperlipidemia, chronic kidney disease, gastroesophageal reflux disease. He is known to have generalized anxiety disorder and chronic insomnia. He was actually admitted on 08/22/[address] [place] [address]. He was transferred from [facility] with an episode of unresponsiveness, hypotension and low systolic pressure of 70 At that time, he was found to be septic and was treated with IV antibiotic and IV Zosyn. He also was found at that time to have acute on chronic kidney injury that has resolved. PAST SURGICAL HISTORY: Unremarkable. PAST PSYCHIATRIC HISTORY: Significant for Alzheimer's disease. FAMILY HISTORY: Unobtainable. SOCIAL HISTORY: He is , has a son and daughter. He apparently does not smoke, drink alcohol or recreational drugs. ALLERGIES: He has no known drug allergies. MEDICATIONS: He is currently on following medications: He is on fluconazole 100 mg once a day, omega-3 fatty acid 1 capsule once a day, amlodipine 5 mg once a day, analgesic balm applied topically 4 times a day, Tylenol 650 mg every 6 hours, divalproex sodium 750 mg p.o. at bedtime, trazodone 50 mg at bedtime p.r.n., olanzapine 2.5 mg every 2 hours, furosemide 40 mg daily, polyvinyl alcohol for artificial tears 1 drop to both eyes 3 times a day, Maalox 15 mL 4 times a day, lactobacillus acidophilus 1 capsule twice a day, and milk of magnesia 30 mL p.o. daily p.r.n., Protonix 40 mg daily, Nystatin powder applied topically twice a day and cholecalciferol 400 international unit once a day. REVIEW OF SYSTEMS: Unobtainable. PHYSICAL EXAMINATION: GENERAL: On arrival to the hospital, he looked well and was clearly in no apparent respiratory distress, slightly pale, but no jaundice, cyanosis or thyromegaly. No jugular venous distention. No limb edema. VITAL SIGNS: His heart rate 108, blood pressure 148/86, temperature was 99, respiratory rate 20, and oxygen saturation was 95%. HEAD, EYES, EARS, NOSE AND THROAT: Showed normocephalic, atraumatic. NECK: Supple. HEART: Showed normal first and second heart sounds. No gallop, rub or murmur. CHEST: Clear to auscultation. No crepitation or rhonchi. ABDOMEN: Distended, soft, nontender. No guarding or rigidity. No organomegaly. All hernial orifice intact. Bowel sounds normal. NEUROLOGIC: He was sleepy, but arousable. All cranial nerves intact. EXTREMITIES: He moves extremities without difficulty. He ambulates without assistance or assistive devices. LABORATORY DATA: His lab work showed his white cell count was 10,000, hemoglobin 11.9, hematocrit 35, MCV 89 and platelet count of 313,000. His chemistry showed a serum sodium 143, potassium 3.5, chloride 107, bicarbonate 28, anion gap of 8, BUN 19, creatinine 1.8, estimated GFR was 37 mL per minute. His glucose was 119 and calcium was 8.5. ASSESSMENT AND PLAN: The patient was transferred to [address] [place] [address] and was started on vancomycin 125 mg 4 times a day. We will continue with all other medication. I will follow his labs closely to make sure he does not get dehydrated. He does develop normal electrolytes. KIP LEDESMA MD DR: BULMARO/carter JOB#: [id number] / [id number]
--- NOTE | 2018-09-16 14:27 | NUR ---
ASSESS PT WITH DR LEDESMA. INSTRUCTED TO CONTINUE CURRENT COURSE OF CARE. WILL TURN PT FREQUENTLY AND MAINTAIN GOOD PREET CARE WITH BARRIER CREAM COCCYX. WILL CONTINUE TO ASSESS.
[2018-09-16] MEDS: NYSTATIN TOPICAL POWDER 15GM BOTTLE. TP SCH ×2 (14:36→19:48)
[2018-09-16] MEDS: VITS A & D/LANOLIN TOPICAL OINTMENT 56GM TUBE. TP SCH ×3 (14:36→19:48)
[2018-09-16 14:38] VITALS: BP 130/84
[2018-09-16 19:00] VITALS: BP 131/72
[2018-09-16] MEDS: traZODone 50 MG TABLET. PO PRN (19:46)
[2018-09-16] MEDS: DIVALPROEX 125 MG CAP.SPRINK PO SCH (19:46)
--- NOTE | 2018-09-16 22:33 | PDOC ---
Exam Note: Maurice Note: Please also refer to the separate dictated note~for this date of service dictated separately.~Patient seen individually. Discussed the patient with Nursing staff reviewed the chart.~Reviewed interim history and current functioning. Reviewed vital signs,~Labs/ Radiology~and current medications noted below. Continue current treatment with the changes noted in the dictated addendum note Assessment: Vital Signs: Vital Signs Date Time Temp Pulse Resp B/P (MAP) Pulse Ox O2 Delivery O2 Flow Rate FiO2 09/16/18 20:00 Room Air 09/16/18 19:00 99.5 113 20 131/72 (91) 98 I&O Intake and Output 09/16/18 06:59 # Voids 2 Labs: Laboratory Tests Test 09/16/18 05:53 09/16/18 06:19 Nasal Screen MRSA (PCR) Negative (Negative) White Blood Count 9.7 x10^3/uL (4.0-11.0) Red Blood Count 3.88 x10^6/uL (4.30-5.70) L Hemoglobin 11.6 g/dL (13.0-17.5) L Hematocrit 34.5 % (39.0-53.0) L Mean Corpuscular Volume 89 fL (79-100) Mean Corpuscular Hemoglobin 30 pg (25-35) Mean Corpuscular Hemoglobin Concent 33 g/dL (31-37) Red Cell Distribution Width 13.0 % (11.5-14.5) Platelet Count 327 x10^3/uL (140-400) Neutrophils (%) (Auto) 70 % (31-73) Lymphocytes (%) (Auto) 14 % (24-48) L Monocytes (%) (Auto) 14 % (0-9) H Eosinophils (%) (Auto) 1 % (0-3) Basophils (%) (Auto) 1 % (0-3) Neutrophils # (Auto) 6.8 x10^3uL (1.8-7.7) Lymphocytes # (Auto) 1.4 x10^3/uL (1.0-4.8) Monocytes # (Auto) 1.4 x10^3/uL (0.0-1.1) H Eosinophils # (Auto) 0.1 x10^3/uL (0.0-0.7) Basophils # (Auto) 0.0 x10^3/uL (0.0-0.2) Sodium Level 144 mmol/L (136-145) Potassium Level 3.9 mmol/L (3.5-5.1) Chloride Level 107 mmol/L (98-107) Carbon Dioxide Level 31 mmol/L (21-32) Anion Gap 6 (6-14) Blood Urea Nitrogen 19 mg/dL (8-26) Creatinine 1.7 mg/dL (0.7-1.3) H Estimated GFR (Cockcroft-Gault) 39.9 BUN/Creatinine Ratio 11 (6-20) Glucose Level 95 mg/dL (70-99) Calcium Level 8.7 mg/dL (8.5-10.1) Total Bilirubin 0.3 mg/dL (0.2-1.0) Aspartate Amino Transferase (AST) 36 U/L (15-37) Alanine Aminotransferase (ALT) 22 U/L (16-63) Alkaline Phosphatase 53 U/L (46-116) Total Protein 6.9 g/dL (6.4-8.2) Albumin 2.7 g/dL (3.4-5.0) L Albumin/Globulin Ratio 0.6 (1.0-1.7) L Current Medications: Meds: Current Medications Haloperidol Lactate (Haldol) 5 mg PRN Q4HRS PRN IM ANXIETY / AGITATION Last administered on 09/15/18at 23:20; Start 09/15/18 at 23:15 Potassium Chloride/Dextrose/ Sod Cl 1,000 ml @ 100 mls/hr Q10H IV Last administered on 09/16/18 19:56; Start 09/15/18 at 23:45 Vancomycin HCl (Vancomycin Oral Solution) 125 mg [id number] PO Last administered on 09/16/18 19:51; Start 09/16/18 at 09:00 Fluconazole (Diflucan) 100 mg DAILY PO Last administered on 09/16/18at 12:46; Start 09/16/18 at 09:00 Multi-Ingredient Ointment (Analgesic [place]) 1 geraldo PRN QID PRN TP MUSCLE PAIN; Start 09/16/18 at 01:30 Divalproex Sodium (Depakote Sprinkles) 750 mg QHS PO Last administered on at 19:46; Start 09/16/18 at 21:00 Fish Oil (Fish Oil) 1,000 mg DAILY PO Last administered on 09/16/18 12:46; Start 09/16/18 at 09:00 Nystatin (Nystop) 1 geraldo BID TP Last administered on 09/16/18 19:48; Start at 09:00 Lactobacillus Rhamnosus (Culturelle) 1 cap BID PO Last administered on 19:46; Start 09/16/18 at 09:00 Magnesium Hydroxide (Milk Of Magnesia) 2,400 mg PRN QHS PRN PO CONSTIPATION; Start 09/16/18 at 01:45 Pantoprazole Sodium (Protonix) 40 mg DAILYAC PO ; Start 09/16/18 at 07:30; Stop 09/16/18 at 09:32; Status DC Acetaminophen (Tylenol) 650 mg PRN Q6HRS PRN PO PAIN / TEMP; Start 09/16/18 at 01:45 Olanzapine (ZyPREXA ZYDIS) 2.5 mg PRN Q2HR PRN PO ANXIETY / AGITATION Last administered on 09/16/18 19:47; Start 09/16/18 at 01:45 Artificial Tears (Artificial Tears) 1 drop PRN TID PRN OU DRY EYE; Start at 01:45 Amlodipine Besylate (Norvasc) 5 mg DAILY PO Last administered on 09/16/18 12:49 ; Start 09/16/18 at 09:00 Furosemide (Lasix) 40 mg DAILY PO Last administered on 09/16/18 12:46; Start at 09:00 Trazodone HCl (Desyrel) 50 mg PRN QHS PRN PO INSOMNIA, MAY REPEAT X1 Last administered on 09/16/18 19:46; Start 09/16/18 at 01:45 Vitamin A/Vitamin D (Vitamin A & D Ointment) 1 geraldo TID TP Last administered on 09/16/18 19:48; Start 09/16/18 at 09:00 Vitamin D (Vitamin D3) 500 unit DAILY PO Last administered on 09/16/18 12:46; Start 09/16/18 at 09:00 Al Hydroxide/Mg Hydroxide (Mylanta Plus Xs) 15 ml PRN QID PRN PO DYSPEPSIA; Start 09/16/18 at 01:45 Famotidine (Pepcid) 20 mg DAILY PO ; Start 09/17/18 at 09:00 Active Scripts Active Reported Trazodone Hcl 50 Mg Tablet 50 Mg PO PRN QHS PRN Norvasc (Amlodipine Besylate) 5 Mg Tablet 5 Mg PO DAILY Vitamin A & D Ointment (Vits A & D/White Pet/Lanolin) 56.7 Gm Oint...g. 1 Geraldo TP TID Artificial Tears (Polyvinyl Alcohol) 15 Ml Drops 1 Drop OP PRN TID PRN Zyprexa Zydis (Olanzapine) 5 Mg Tab.rapdis 2.5 Mg PO PRN Q2HR PRN Nystatin 15 Gm Powder 1 Geraldo TP BID Lasix (Furosemide) 40 Mg Tablet 40 Mg PO DAILY Diflucan (Fluconazole) 100 Mg Tablet 100 Mg PO DAILY Depakote Sprinkle (Divalproex Sodium) 125 Mg Cap.sprink 750 Mg PO QHS Acidophilus (Lactobacillus Acidophilus) 1 Each Capsule 1 Each PO BID 7 Days Analgesic [place] (Methyl Salicylate/Menthol) 28 Gm Oint...g. 1 Geraldo TP QIDPRN PRN Milk Of Magnesia (Magnesium Hydroxide) 2,400 Mg/10 Ml Oral.susp 2,400 Mg PO HS PRN Advanced Antacid Liquid (Mag Hydrox/Al Hydrox/Simeth) 355 Ml Oral.susp 15 Ml PO QIDPRN PRN Tylenol (Acetaminophen) 325 Mg Tablet 650 Mg PO PRN Q6HRS PRN Vitamin D (Cholecalciferol (Vitamin D3)) 400 Unit/1 Ml Drops 500 Unit PO DAILY Protonix (Pantoprazole Sodium) 40 Mg Tablet.dr 40 Mg PO DAILY Fish Oil 1,200 Mg Softgel ([place]-3S/Dha/Epa/Fish Oil) 1 Each Capsule 1 Each PO DAILY I have reviewed the current psychotropics carefully including drug interactions. Risk benefit ratio favors no change other than as noted in my dictated progress note. Diagnosis: Problems: (1) Dehydration (2) Hypotension (3) Anxiety disorder (4) Impulse control disorder (5) Vascular dementia with depressed mood (6) Vascular dementia with delusions (7) Alzheimer's dementia (8) Vascular dementia with behavioral disturbance (9) Major neurocognitive disorder ZACK FERREIRA MD Sep 16, 2018 22:33
[2018-09-16 22:56] VITALS: BP 135/75
--- NOTE | 2018-09-17 04:25 | PN ---
DATE: 09/16/2018 SUBJECTIVE: The patient was transferred yesterday from [facility] on account of being positive for C. diff toxins, have diarrhea, was started on oral vancomycin. Today, he has so far 2 episodes of loose bowel movement. He continued to be mostly nonverbal. He rarely open his eyes or respond verbally; however, he is able to eat and drink. OBJECTIVE: GENERAL: When I examined him this afternoon, he was resting slightly propped up in bed, in no apparent respiratory distress, slightly pale, no jaundice, cyanosis, or thyromegaly. No jugular venous distension. No lower limb edema. VITAL SIGNS: His heart rate was 95, blood pressure 124/71, temperature was 98.3, respiratory rate was 18 and oxygen saturation was 97% on room air. HEAD, EYES, EARS, NOSE AND THROAT: Normocephalic, atraumatic. NECK: Supple. HEART: Showed normal first and second heart sounds with no gallop, rub or murmur. CHEST: Clear to auscultation. No crepitation or rhonchi. ABDOMEN: Distended, soft, nontender. NEUROLOGIC: He was awake, alert, nonverbal. He moves extremities without difficulty, ambulates without assistance or assistive devices. LABORATORY DATA: His lab work this morning showed his white cell count to be 9700, hemoglobin was 11.6, hematocrit 34.5, MCV 89 and platelet count 327,000. His chemistry showed a serum sodium 144, potassium 3.9, chloride 107, bicarbonate 31, anion gap of 6, BUN 19, creatinine 1.7, estimated GFR was 39.9 mL per minute. His glucose was 95, calcium was 8.7. Total bilirubin, AST, ALT, alkaline phosphatase were normal. Total protein was 6.9, albumin was 2.7. ASSESSMENT: Clostridium difficile colitis, for which he is on oral vancomycin 125 mg 4 times a day. He has multiple other medical problems including acute on chronic kidney injury, resolving; hypertension, hyperlipidemia, gastroesophageal reflux disease. KIP LEDESMA MD DR: BULMARO/carter JOB#: [id number] / [id number]
[2018-09-17 05:31] VITALS: BP 149/86
--- NOTE | 2018-09-17 09:07 | CONS ---
DATE OF CONSULTATION: 09/16/2018 PSYCHIATRIC PROGRESS NOTE This is a late entry 09/16/2018 covers elements not covered in my initial note. HISTORY OF PRESENT ILLNESS: The patient is a 73-year-old male, who was seen in room 109, [address] [place] [address] evening of 09/16/2018 for a psychiatric consult requested by Dr. Khalil after the patient was transferred from [facility] where he was admitted for management of his major neurocognitive disorder, Alzheimer, vascular with delusion, depression. While on the unit, he developed C. diff colitis, was transferred to [address] [place] [address] and I have been asked to follow him for a psychiatric consultation. Per nursing report, so far, the patient remains psychiatrically unchanged. He remains oriented, perhaps just to himself. MENTAL STATUS EXAM: Unchanged from previous per review of records. No CV, , pulmonary, eye, ENT system symptoms on review. Reliability poor. Insight, judgment, recent and remote memory, attention, concentration, fund of knowledge poor, consistent with his diagnosis. Again, per review of the assessments and record. IMPRESSION: Major neurocognitive disorder, Alzheimer, vascular with delusion, depression, behavioral disturbance; anxiety disorder, unspecified; impulse control disorder, unspecified; Clostridium difficile colitis. RECOMMENDATIONS: I would not suggest any change in his psychotropics for now, but I would be happy to follow him as needed while he is medically stabilized and reassess whether he needs to be back on a unit once he is medically stable or he may proceed on to the [facility] at that stage. ZACK FERREIRA MD DR: JE/carter JOB#: [id number] / [id number]
[2018-09-17] MEDS: POTASSIUM CL 20MEQ D5-0.45NACL 1,000 ML IV SCH ×3 (09:24→19:49)
[2018-09-17] MEDS: CHOLECALCIFEROL (VITAMIN D3) 1,000 UNIT TABLET PO SCH (09:24)
[2018-09-17] MEDS: LACTOBACILLUS RHAMNOSUS GG 1 CAPSULE. PO SCH ×2 (09:24→21:07)
[2018-09-17] MEDS: FUROSEMIDE 40 MG TABLET PO SCH (09:25)
[2018-09-17] MEDS: FLUCONAZOLE 100 MG TABLET. PO SCH (09:25)
[2018-09-17] MEDS: NYSTATIN TOPICAL POWDER 15GM BOTTLE. TP SCH ×2 (09:25→21:07)
[2018-09-17] MEDS: OMEGA-3 FATTY ACIDS/FISH OIL 1,000 MG CAPSULE. PO SCH (09:25)
[2018-09-17] MEDS: VITS A & D/LANOLIN TOPICAL OINTMENT 56GM TUBE. TP SCH ×3 (09:26→21:00)
[2018-09-17] MEDS: FAMOTIDINE 20 MG TABLET PO SCH (09:27)
[2018-09-17] MEDS: VANCOMYCIN 125 MG/2.5 ML ORAL SOLUTION. PO SCH ×4 (09:27→21:06)
[2018-09-17 10:25] VITALS: BP 103/64
[2018-09-17 16:33] VITALS: BP 154/70
--- NOTE | 2018-09-17 17:56 | PN ---
DATE: 09/17/2018 SUBJECTIVE: The patient is resting, slightly propped up, sleeping comfortably, in no apparent distress. He is mostly nonverbal, nursing staff stated that he has 1 loose bowel movement this morning. PHYSICAL EXAMINATION: GENERAL: When I examined him this morning, he looked pale, no jaundice, cyanosis, or thyromegaly. No jugular venous distention. No limb edema. VITAL SIGNS: His heart rate was 50, blood pressure was 103/64, temperature was 97.8, respiratory rate was 20, and oxygen saturation was 99%. HEAD, EYES, EARS, NOSE AND THROAT: Showed normocephalic, atraumatic. NECK: Supple. HEART: Showed normal first and second sounds. No gallop, rub or murmur. CHEST: Clear to auscultation. No crepitation or rhonchi. ABDOMEN: Distended, soft, nontender. No guarding or rigidity. No organomegaly. All hernial orifice intact. Bowel sounds normal. NEUROLOGIC: He is sleepy, but arousable. All cranial nerves intact. He moves extremities without difficulty. He is capable of ambulating without assistance or assistive devices. His intake was 1600 and no output was recorded. LABORATORY DATA: His lab work showed that his nasal screen for MRSA with PCR was negative. White cell count was 9700, hemoglobin 12, hematocrit 34, MCV 89 and platelet count 327,000. His chemistry showed a serum sodium 144, potassium 3.9, chloride 107, bicarbonate 31, anion gap of 6, BUN 19, creatinine 1.7, estimated GFR was 40 mL per minute. His glucose was 95, calcium was 8.7. Total bilirubin, AST, ALT, alkaline phosphatase were normal. Total protein was 6.9, albumin 2.7. PLAN: To continue with IV fluid, continue with oral vancomycin, continue with lactobacillus. I will hold his Lasix. I will repeat all his lab works tomorrow. Once his diarrhea subsided, I would make a decision whether he needs to [facility], can be discharged back to his [facility] facility. KIP LEDESMA MD DR: BULMARO/carter JOB#: [id number] / [id number]
--- NOTE | 2018-09-17 18:31 | PDOC ---
Exam Note: Maurice Note: Please also refer to the separate dictated note~for this date of service dictated separately.~Patient seen individually. Discussed the patient with Nursing staff reviewed the chart.~Reviewed interim history and current functioning. Reviewed vital signs,~Labs/ Radiology~and current medications noted below. Continue current treatment with the changes noted in the dictated addendum note Assessment: Vital Signs: Vital Signs Date Time Temp Pulse Resp B/P (MAP) Pulse Ox O2 Delivery O2 Flow Rate FiO2 09/17/18 16:33 97.9 97 20 154/70 (98) 97 Room Air I&O Intake and Output 09/17/18 07:00 Intake Total 1610 ml Balance 1610 ml Intake Oral 610 ml IV Total 1000 ml # Voids 7 # Bowel Movements 8 Current Medications: Meds: Current Medications Haloperidol Lactate (Haldol) 5 mg PRN Q4HRS PRN IM ANXIETY / AGITATION Last administered on 09/15/18at 23:20; Start 09/15/18 at 23:15 Potassium Chloride/Dextrose/ Sod Cl 1,000 ml @ 100 mls/hr Q10H IV Last administered on 09/17/18at 17:27; Start 09/15/18 at 23:45 Vancomycin HCl (Vancomycin Oral Solution) 125 mg [id number] PO Last administered on 09/17/18 17:26; Start 09/16/18 at 09:00 Fluconazole (Diflucan) 100 mg DAILY PO Last administered on 09/17/18 09:25; Start 09/16/18 at 09:00 Multi-Ingredient Ointment (Analgesic [place]) 1 geraldo PRN QID PRN TP MUSCLE PAIN; Start 09/16/18 at 01:30 Divalproex Sodium (Depakote Sprinkles) 750 mg QHS PO Last administered on 19:46; Start 09/16/18 at 21:00 Fish Oil (Fish Oil) 1,000 mg DAILY PO Last administered on 09/17/18 09:25; Start 09/16/18 at 09:00 Nystatin (Nystop) 1 geraldo BID TP Last administered on 09/17/18 09:25; Start at 09:00 Lactobacillus Rhamnosus (Culturelle) 1 cap BID PO Last administered on 09:24; Start 09/16/18 at 09:00 Magnesium Hydroxide (Milk Of Magnesia) 2,400 mg PRN QHS PRN PO CONSTIPATION; Start 09/16/18 at 01:45 Pantoprazole Sodium (Protonix) 40 mg DAILYAC PO ; Start 09/16/18 at 07:30; Stop 09/16/18 at 09:32; Status DC Acetaminophen (Tylenol) 650 mg PRN Q6HRS PRN PO PAIN / TEMP; Start 09/16/18 at 01:45 Olanzapine (ZyPREXA ZYDIS) 2.5 mg PRN Q2HR PRN PO ANXIETY / AGITATION Last administered on 09/17/18 18:08; Start 09/16/18 at 01:45 Artificial Tears (Artificial Tears) 1 drop PRN TID PRN OU DRY EYE; Start at 01:45 Amlodipine Besylate (Norvasc) 5 mg DAILY PO Last administered on 09/16/18 12:49 ; Start 09/16/18 at 09:00 Furosemide (Lasix) 40 mg DAILY PO Last administered on 09/17/18 09:25; Start at 09:00; Stop 09/17/18 at 11:45; Status DC Trazodone HCl (Desyrel) 50 mg PRN QHS PRN PO INSOMNIA, MAY REPEAT X1 Last administered on 09/16/18 19:46; Start 09/16/18 at 01:45 Vitamin A/Vitamin D (Vitamin A & D Ointment) 1 geraldo TID TP Last administered on 09/17/18 13:19; Start 09/16/18 at 09:00 Vitamin D (Vitamin D3) 500 unit DAILY PO Last administered on 09/17/18at 09:24; Start 09/16/18 at 09:00 Al Hydroxide/Mg Hydroxide (Mylanta Plus Xs) 15 ml PRN QID PRN PO DYSPEPSIA; Start 09/16/18 at 01:45 Famotidine (Pepcid) 20 mg DAILY PO Last administered on 09/17/18at 09:27; Start 09/17/18 at 09:00 Active Scripts Active Reported Trazodone Hcl 50 Mg Tablet 50 Mg PO PRN QHS PRN Norvasc (Amlodipine Besylate) 5 Mg Tablet 5 Mg PO DAILY Vitamin A & D Ointment (Vits A & D/White Pet/Lanolin) 56.7 Gm Oint...g. 1 Geraldo TP TID Artificial Tears (Polyvinyl Alcohol) 15 Ml Drops 1 Drop OP PRN TID PRN Zyprexa Zydis (Olanzapine) 5 Mg Tab.rapdis 2.5 Mg PO PRN Q2HR PRN Nystatin 15 Gm Powder 1 Geraldo TP BID Lasix (Furosemide) 40 Mg Tablet 40 Mg PO DAILY Diflucan (Fluconazole) 100 Mg Tablet 100 Mg PO DAILY Depakote Sprinkle (Divalproex Sodium) 125 Mg Cap.sprink 750 Mg PO QHS Acidophilus (Lactobacillus Acidophilus) 1 Each Capsule 1 Each PO BID 7 Days Analgesic [place] (Methyl Salicylate/Menthol) 28 Gm Oint...g. 1 Grealdo TP QIDPRN PRN Milk Of Magnesia (Magnesium Hydroxide) 2,400 Mg/10 Ml Oral.susp 2,400 Mg PO HS PRN Advanced Antacid Liquid (Mag Hydrox/Al Hydrox/Simeth) 355 Ml Oral.susp 15 Ml PO QIDPRN PRN Tylenol (Acetaminophen) 325 Mg Tablet 650 Mg PO PRN Q6HRS PRN Vitamin D (Cholecalciferol (Vitamin D3)) 400 Unit/1 Ml Drops 500 Unit PO DAILY Protonix (Pantoprazole Sodium) 40 Mg Tablet.dr 40 Mg PO DAILY Fish Oil 1,200 Mg Softgel ([place]-3S/Dha/Epa/Fish Oil) 1 Each Capsule 1 Each PO DAILY I have reviewed the current psychotropics carefully including drug interactions. Risk benefit ratio favors no change other than as noted in my dictated progress note. Diagnosis: Problems: (1) Major neurocognitive disorder (2) Vascular dementia with behavioral disturbance (3) Alzheimer's dementia (4) Vascular dementia with delusions (5) Vascular dementia with depressed mood (6) Impulse control disorder (7) Anxiety disorder ZACK FERREIRA MD Sep 17, 2018 18:31
[2018-09-17 19:44] VITALS: BP 148/64
[2018-09-17] MEDS: traZODone 50 MG TABLET. PO PRN (21:06)
[2018-09-17] MEDS: DIVALPROEX 125 MG CAP.SPRINK PO SCH (21:07)
[2018-09-17 23:00] VITALS: BP 121/88
[2018-09-18 06:04] VITALS: BP 128/81
[2018-09-18 06:24] LABS: HEMATOCRIT 36.8 % (39.0-53.0); HEMOGLOBIN 12.6 g/dL (13.0-17.5); RED BLOOD COUNT 4.19 x10^6/uL (4.30-5.70); WHITE BLOOD COUNT 10.9 x10^3/uL (4.0-11.0)
[2018-09-18 06:41] LABS: ALBUMIN 2.6 g/dL (3.4-5.0); ALBUMIN/GLOBULIN RATIO 0.6 (1.0-1.7); CALCIUM 9.1 mg/dL (8.5-10.1); CREATININE 1.5 mg/dL (0.7-1.3); GFR 46.1; POTASSIUM 3.9 mmol/L (3.5-5.1); TOTAL BILIRUBIN 0.2 mg/dL (0.2-1.0); TOTAL PROTEIN 7.1 g/dL (6.4-8.2)
[2018-09-18] MEDS: NYSTATIN TOPICAL POWDER 15GM BOTTLE. TP SCH ×2 (09:16→20:21)
[2018-09-18] MEDS: LACTOBACILLUS RHAMNOSUS GG 1 CAPSULE. PO SCH ×2 (09:16→20:21)
[2018-09-18] MEDS: amLODIPine BESYLATE 5 MG TABLET PO SCH (09:16)
[2018-09-18] MEDS: OMEGA-3 FATTY ACIDS/FISH OIL 1,000 MG CAPSULE. PO SCH (09:16)
[2018-09-18] MEDS: VITS A & D/LANOLIN TOPICAL OINTMENT 56GM TUBE. TP SCH ×3 (09:16→20:21)
[2018-09-18] MEDS: FAMOTIDINE 20 MG TABLET PO SCH (09:16)
[2018-09-18] MEDS: VANCOMYCIN 125 MG/2.5 ML ORAL SOLUTION. PO SCH ×4 (09:16→20:21)
[2018-09-18] MEDS: FLUCONAZOLE 100 MG TABLET. PO SCH (09:16)
[2018-09-18] MEDS: CHOLECALCIFEROL (VITAMIN D3) 1,000 UNIT TABLET PO SCH (09:18)
[2018-09-18 11:03] VITALS: BP 146/89
[2018-09-18 15:39] VITALS: BP 141/84
[2018-09-18 19:35] VITALS: BP 108/84
[2018-09-18] MEDS: traZODone 50 MG TABLET. PO PRN (20:21)
[2018-09-18] MEDS: DIVALPROEX 125 MG CAP.SPRINK PO SCH (20:21)
[2018-09-18] MEDS: ACETAMINOPHEN 325 MG TABLET PO PRN (20:21)
--- NOTE | 2018-09-18 22:27 | PDOC ---
Exam Note: Maurice Note: Please also refer to the separate dictated note~for this date of service dictated separately.~Patient seen individually. Discussed the patient with Nursing staff reviewed the chart.~Reviewed interim history and current functioning. Reviewed vital signs,~Labs/ Radiology~and current medications noted below. Continue current treatment with the changes noted in the dictated addendum note Assessment: Vital Signs: Vital Signs Date Time Temp Pulse Resp B/P (MAP) Pulse Ox O2 Delivery O2 Flow Rate FiO2 09/18/18 19:50 Room Air 09/18/18 19:35 96.8 84 24 108/84 (92) 93 I&O Intake and Output 09/18/18 07:00 Intake Total 1803 ml Balance 1803 ml Intake Oral 600 ml IV Total 1203 ml # Voids 4 # Bowel Movements 1 Labs: Laboratory Tests Test 09/18/18 06:00 White Blood Count 10.9 x10^3/uL (4.0-11.0) Red Blood Count 4.19 x10^6/uL (4.30-5.70) L Hemoglobin 12.6 g/dL (13.0-17.5) L Hematocrit 36.8 % (39.0-53.0) L Mean Corpuscular Volume 88 fL (79-100) Mean Corpuscular Hemoglobin 30 pg (25-35) Mean Corpuscular Hemoglobin Concent 34 g/dL (31-37) Red Cell Distribution Width 13.0 % (11.5-14.5) Platelet Count 441 x10^3/uL (140-400) H Sodium Level 139 mmol/L (136-145) Potassium Level 3.9 mmol/L (3.5-5.1) Chloride Level 102 mmol/L (98-107) Carbon Dioxide Level 28 mmol/L (21-32) Anion Gap 9 (6-14) Blood Urea Nitrogen 16 mg/dL (8-26) Creatinine 1.5 mg/dL (0.7-1.3) H Estimated GFR (Cockcroft-Gault) 46.1 BUN/Creatinine Ratio 11 (6-20) Glucose Level 86 mg/dL (70-99) Calcium Level 9.1 mg/dL (8.5-10.1) Total Bilirubin 0.2 mg/dL (0.2-1.0) Aspartate Amino Transferase (AST) 30 U/L (15-37) Alanine Aminotransferase (ALT) 33 U/L (16-63) Alkaline Phosphatase 65 U/L (46-116) Total Protein 7.1 g/dL (6.4-8.2) Albumin 2.6 g/dL (3.4-5.0) L Albumin/Globulin Ratio 0.6 (1.0-1.7) L Current Medications: Meds: Current Medications Haloperidol Lactate (Haldol) 5 mg PRN Q4HRS PRN IM ANXIETY / AGITATION Last administered on 09/15/18 23:20; Start 09/15/18 at 23:15 Potassium Chloride/Dextrose/ Sod Cl 1,000 ml @ 100 mls/hr Q10H IV Last administered on 09/17/18 19:49; Start 09/15/18 at 23:45; Stop 09/18/18 at 07:14; Status DC Vancomycin HCl (Vancomycin Oral Solution) 125 mg [id number] PO Last administered on 09/18/18 20:21; Start 09/16/18 at 09:00 Fluconazole (Diflucan) 100 mg DAILY PO Last administered on 09/18/18 09:16; Start 09/16/18 at 09:00 Multi-Ingredient Ointment (Analgesic [place]) 1 geraldo PRN QID PRN TP MUSCLE PAIN; Start 09/16/18 at 01:30 Divalproex Sodium (Depakote Sprinkles) 750 mg QHS PO Last administered on 20:21; Start 09/16/18 at 21:00 Fish Oil (Fish Oil) 1,000 mg DAILY PO Last administered on 09/18/18 09:16; Start 09/16/18 at 09:00 Nystatin (Nystop) 1 geraldo BID TP Last administered on 09/18/18 20:21; Start 09/16 at 09:00 Lactobacillus Rhamnosus (Culturelle) 1 cap BID PO Last administered on 20:21; Start 09/16/18 at 09:00 Magnesium Hydroxide (Milk Of Magnesia) 2,400 mg PRN QHS PRN PO CONSTIPATION; Start 09/16/18 at 01:45 Pantoprazole Sodium (Protonix) 40 mg DAILYAC PO ; Start 09/16/18 at 07:30; Stop 09/16/18 at 09:32; Status DC Acetaminophen (Tylenol) 650 mg PRN Q6HRS PRN PO PAIN / TEMP Last administered on 09/18/18 20:21; Start 09/16/18 at 01:45 Olanzapine (ZyPREXA ZYDIS) 2.5 mg PRN Q2HR PRN PO ANXIETY / AGITATION Last administered on 09/18/18 18:09; Start 09/16/18 at 01:45 Artificial Tears (Artificial Tears) 1 drop PRN TID PRN OU DRY EYE; Start at 01:45 Amlodipine Besylate (Norvasc) 5 mg DAILY PO Last administered on 09/18/18 09: 16; Start 09/16/18 at 09:00 Furosemide (Lasix) 40 mg DAILY PO Last administered on 09/17/18 09:25; Start at 09:00; Stop 09/17/18 at 11:45; Status DC Trazodone HCl (Desyrel) 50 mg PRN QHS PRN PO INSOMNIA, MAY REPEAT X1 Last administered on 09/18/18 20:21; Start 09/16/18 at 01:45 Vitamin A/Vitamin D (Vitamin A & D Ointment) 1 geraldo TID TP Last administered on 09/18/18 20:21; Start 09/16/18 at 09:00 Vitamin D (Vitamin D3) 500 unit DAILY PO Last administered on 09/18/18 09:18; Start 09/16/18 at 09:00 Al Hydroxide/Mg Hydroxide (Mylanta Plus Xs) 15 ml PRN QID PRN PO DYSPEPSIA; Start 09/16/18 at 01:45 Famotidine (Pepcid) 20 mg DAILY PO Last administered on 09/18/18 09:16; Start 09/17/18 at 09:00 Active Scripts Active Reported Trazodone Hcl 50 Mg Tablet 50 Mg PO PRN QHS PRN Norvasc (Amlodipine Besylate) 5 Mg Tablet 5 Mg PO DAILY Vitamin A & D Ointment (Vits A & D/White Pet/Lanolin) 56.7 Gm Oint...g. 1 Geraldo TP TID Artificial Tears (Polyvinyl Alcohol) 15 Ml Drops 1 Drop OP PRN TID PRN Zyprexa Zydis (Olanzapine) 5 Mg Tab.rapdis 2.5 Mg PO PRN Q2HR PRN Nystatin 15 Gm Powder 1 Geraldo TP BID Lasix (Furosemide) 40 Mg Tablet 40 Mg PO DAILY Diflucan (Fluconazole) 100 Mg Tablet 100 Mg PO DAILY Depakote Sprinkle (Divalproex Sodium) 125 Mg Cap.sprink 750 Mg PO QHS Acidophilus (Lactobacillus Acidophilus) 1 Each Capsule 1 Each PO BID 7 Days Analgesic [place] (Methyl Salicylate/Menthol) 28 Gm Oint...g. 1 Geraldo TP QIDPRN PRN Milk Of Magnesia (Magnesium Hydroxide) 2,400 Mg/10 Ml Oral.susp 2,400 Mg PO HS PRN Advanced Antacid Liquid (Mag Hydrox/Al Hydrox/Simeth) 355 Ml Oral.susp 15 Ml PO QIDPRN PRN Tylenol (Acetaminophen) 325 Mg Tablet 650 Mg PO PRN Q6HRS PRN Vitamin D (Cholecalciferol (Vitamin D3)) 400 Unit/1 Ml Drops 500 Unit PO DAILY Protonix (Pantoprazole Sodium) 40 Mg Tablet.dr 40 Mg PO DAILY Fish Oil 1,200 Mg Softgel ([place]-3S/Dha/Epa/Fish Oil) 1 Each Capsule 1 Each PO DAILY I have reviewed the current psychotropics carefully including drug interactions. Risk benefit ratio favors no change other than as noted in my dictated progress note. Diagnosis: Problems: (1) Dehydration (2) Hypotension (3) Anxiety disorder (4) Impulse control disorder (5) Vascular dementia with depressed mood (6) Vascular dementia with delusions (7) Alzheimer's dementia (8) Vascular dementia with behavioral disturbance (9) Major neurocognitive disorder ZACK FERREIRA MD Sep 18, 2018 22:27
[2018-09-18 23:10] VITALS: BP 132/77
--- NOTE | 2018-09-18 23:10 | PN ---
DATE: 09/18/2018 SUBJECTIVE: The patient is resting, slightly propped up in bed, in no apparent distress. He apparently continued to be combative, resistive to care. He has only one loose bowel movement yesterday. His peripheral IV line was issued and the nursing staff could not start another one; however, he is able to eat and drink and therefore we decided to discontinue his IV fluid altogether. OBJECTIVE: GENERAL: On examining him today, he looked well and was clearly in no apparent respiratory distress. No pallor, jaundice, cyanosis or thyromegaly. No jugular venous distention. No lower limb edema. VITAL SIGNS: Her heart rate was 93, blood pressure was 128/81, temperature was 98.4, respiratory rate was 24 and oxygen saturation was 97%. The rest of clinical examination is stable, has not really changed. His intake over the last 24 hours was 1600. No output was recorded. LABORATORY DATA: His lab work this morning showed his white cell count to be 10,900, hemoglobin 12.6, hematocrit 36.8, MCV 88 and platelet count 441,000. His chemistry showed a serum sodium 139, potassium 3.9, chloride 102, bicarbonate 28, anion gap of 9, BUN 16, creatinine 1.5, estimated GFR was 46 mL per minute. His glucose was 86, calcium was 9.1. Total bilirubin, AST, ALT, alkaline phosphatase were normal. Total protein was 7.1, albumin was 2.6. His nasal screen for MRSA PCR was negative. ASSESSMENT: 1. Clostridium difficile colitis, on oral vancomycin. The diarrhea is slowly improving, has only one loose bowel movement yesterday. 2. Acute on chronic kidney injury, improving. His creatinine is down to 1.5. Other medical problems include: A. Hypertension. B. Hyperlipidemia. C. Gastroesophageal reflux disease. PLAN: Plan is to continue with oral vancomycin, continue with probiotic. We will monitor him for another 24 hours and if the diarrhea subsided, we will have to make a decision for him to be discharged [facility] to go back to his [facility] facility. KIP LEDESMA MD DR: BULMARO/carter JOB#: [id number] / [id number]
--- NOTE | 2018-09-18 23:13 | PN ---
DATE: 09/17/2018 This late entry for 09/17/2018 covers elements not covered in my initial note. SUBJECTIVE: I met with the patient in the evening. Discussed with nursing staff. Overall, the patient remains confused, has not had any loose motions on 09/17/2018. He has not been aggressive, little resistive to cares at times. REVIEW OF SYSTEMS: No CV, , pulmonary, eye, ENT system symptoms on review. Reliability poor. MENTAL STATUS EXAM: Oriented to himself. Insight, judgment, recent and remote memory, attention, concentration, fund of knowledge poor, consistent with his diagnosis mentioned in my initial note. PLAN: No change from initial note. MAN Jaime FERREIRA MD DR: JE/carter JOB#: [id number] / [id number]
[2018-09-19 05:51] VITALS: BP 142/84
[2018-09-19] MEDS: FAMOTIDINE 20 MG TABLET PO SCH (08:33)
[2018-09-19] MEDS: LACTOBACILLUS RHAMNOSUS GG 1 CAPSULE. PO SCH ×2 (08:33→21:44)
[2018-09-19] MEDS: amLODIPine BESYLATE 5 MG TABLET PO SCH (08:33)
[2018-09-19] MEDS: FLUCONAZOLE 100 MG TABLET. PO SCH (08:34)
[2018-09-19] MEDS: OMEGA-3 FATTY ACIDS/FISH OIL 1,000 MG CAPSULE. PO SCH (08:35)
[2018-09-19] MEDS: CHOLECALCIFEROL (VITAMIN D3) 1,000 UNIT TABLET PO SCH (08:35)
[2018-09-19] MEDS: VANCOMYCIN 125 MG/2.5 ML ORAL SOLUTION. PO SCH ×4 (08:37→21:44)
[2018-09-19] MEDS: NYSTATIN TOPICAL POWDER 15GM BOTTLE. TP SCH ×2 (09:00→21:44)
[2018-09-19] MEDS: VITS A & D/LANOLIN TOPICAL OINTMENT 56GM TUBE. TP SCH ×3 (09:00→21:44)
[2018-09-19 10:54] VITALS: BP 147/84
--- NOTE | 2018-09-19 13:10 | NUR ---
NSG NOTE; PT'S BEHAVIOR TODAY UNLIKE TUE 09/17/18 WHEN HE FOUGHT CARES ALL DAY, SWINGING AT NURSES, HITTING, PINCHING AND VERBALLY ABUSIVE, TODAY HE HAS BEEN MORE CALM AND COOPERATIVE. HE REMAINS CONFUSED THOUGH AND SLEEPS ALOT
[2018-09-19 15:20] VITALS: BP 142/82
[2018-09-19 19:39] VITALS: BP 123/70
[2018-09-19] MEDS: DIVALPROEX 125 MG CAP.SPRINK PO SCH (21:43)
[2018-09-19] MEDS: ACETAMINOPHEN 325 MG TABLET PO PRN (21:56)
--- NOTE | 2018-09-19 22:34 | PDOC ---
Exam Note: Maurice Note: Please also refer to the separate dictated note~for this date of service dictated separately.~Patient seen individually. Discussed the patient with Nursing staff reviewed the chart.~Reviewed interim history and current functioning. Reviewed vital signs,~Labs/ Radiology~and current medications noted below. Continue current treatment with the changes noted in the dictated addendum note Assessment: Vital Signs: Vital Signs Date Time Temp Pulse Resp B/P (MAP) Pulse Ox O2 Delivery O2 Flow Rate FiO2 09/19/18 19:39 100.0 104 22 123/70 (87) 96 Room Air I&O Intake and Output 09/19/18 07:00 Intake Total 180 ml Balance 180 ml Intake Oral 180 ml # Voids 5 Current Medications: Meds: Current Medications Haloperidol Lactate (Haldol) 5 mg PRN Q4HRS PRN IM ANXIETY / AGITATION Last administered on 09/15/18 23:20; Start 09/15/18 at 23:15 Potassium Chloride/Dextrose/ Sod Cl 1,000 ml @ 100 mls/hr Q10H IV Last administered on 09/17/18 19:49; Start 09/15/18 at 23:45; Stop 09/18/18 at 07:14; Status DC Vancomycin HCl (Vancomycin Oral Solution) 125 mg [id number] PO Last administered on 09/19/18 21:44; Start 09/16/18 at 09:00 Fluconazole (Diflucan) 100 mg DAILY PO Last administered on 09/19/18 08:34; Start 09/16/18 at 09:00 Multi-Ingredient Ointment (Analgesic [place]) 1 geraldo PRN QID PRN TP MUSCLE PAIN; Start 09/16/18 at 01:30 Divalproex Sodium (Depakote Sprinkles) 750 mg QHS PO Last administered on 21:43; Start 09/16/18 at 21:00 Fish Oil (Fish Oil) 1,000 mg DAILY PO Last administered on 09/19/18 08:35; Start 09/16/18 at 09:00 Nystatin (Nystop) 1 geraldo BID TP Last administered on 09/19/18 21:44; Start 09/16 at 09:00 Lactobacillus Rhamnosus (Culturelle) 1 cap BID PO Last administered on 21:44; Start 09/16/18 at 09:00 Magnesium Hydroxide (Milk Of Magnesia) 2,400 mg PRN QHS PRN PO CONSTIPATION; Start 09/16/18 at 01:45 Pantoprazole Sodium (Protonix) 40 mg DAILYAC PO ; Start 09/16/18 at 07:30; Stop 09/16/18 at 09:32; Status DC Acetaminophen (Tylenol) 650 mg PRN Q6HRS PRN PO PAIN / TEMP Last administered on 09/19/18 21:56; Start 09/16/18 at 01:45 Olanzapine (ZyPREXA ZYDIS) 2.5 mg PRN Q2HR PRN PO ANXIETY / AGITATION Last administered on 09/18/18 18:09; Start 09/16/18 at 01:45 Artificial Tears (Artificial Tears) 1 drop PRN TID PRN OU DRY EYE; Start at 01:45 Amlodipine Besylate (Norvasc) 5 mg DAILY PO Last administered on 09/19/18 08: 33; Start 09/16/18 at 09:00 Furosemide (Lasix) 40 mg DAILY PO Last administered on 09/17/18 09:25; Start at 09:00; Stop 09/17/18 at 11:45; Status DC Trazodone HCl (Desyrel) 50 mg PRN QHS PRN PO INSOMNIA, MAY REPEAT X1 Last administered on 09/18/18 20:21; Start 09/16/18 at 01:45 Vitamin A/Vitamin D (Vitamin A & D Ointment) 1 geraldo TID TP Last administered on 09/19/18 21:44; Start 09/16/18 at 09:00 Vitamin D (Vitamin D3) 500 unit DAILY PO Last administered on 09/19/18 08:35; Start 09/16/18 at 09:00 Al Hydroxide/Mg Hydroxide (Mylanta Plus Xs) 15 ml PRN QID PRN PO DYSPEPSIA; Start 09/16/18 at 01:45 Famotidine (Pepcid) 20 mg DAILY PO Last administered on 09/19/18 08:33; Start 09/17/18 at 09:00 Active Scripts Active Reported Trazodone Hcl 50 Mg Tablet 50 Mg PO PRN QHS PRN Norvasc (Amlodipine Besylate) 5 Mg Tablet 5 Mg PO DAILY Vitamin A & D Ointment (Vits A & D/White Pet/Lanolin) 56.7 Gm Oint...g. 1 Geraldo TP TID Artificial Tears (Polyvinyl Alcohol) 15 Ml Drops 1 Drop OP PRN TID PRN Zyprexa Zydis (Olanzapine) 5 Mg Tab.rapdis 2.5 Mg PO PRN Q2HR PRN Nystatin 15 Gm Powder 1 Geraldo TP BID Lasix (Furosemide) 40 Mg Tablet 40 Mg PO DAILY Diflucan (Fluconazole) 100 Mg Tablet 100 Mg PO DAILY Depakote Sprinkle (Divalproex Sodium) 125 Mg Cap.sprink 750 Mg PO QHS Acidophilus (Lactobacillus Acidophilus) 1 Each Capsule 1 Each PO BID 7 Days Analgesic [place] (Methyl Salicylate/Menthol) 28 Gm Oint...g. 1 Geraldo TP QIDPRN PRN Milk Of Magnesia (Magnesium Hydroxide) 2,400 Mg/10 Ml Oral.susp 2,400 Mg PO HS PRN Advanced Antacid Liquid (Mag Hydrox/Al Hydrox/Simeth) 355 Ml Oral.susp 15 Ml PO QIDPRN PRN Tylenol (Acetaminophen) 325 Mg Tablet 650 Mg PO PRN Q6HRS PRN Vitamin D (Cholecalciferol (Vitamin D3)) 400 Unit/1 Ml Drops 500 Unit PO DAILY Protonix (Pantoprazole Sodium) 40 Mg Tablet.dr 40 Mg PO DAILY Fish Oil 1,200 Mg Softgel ([place]-3S/Dha/Epa/Fish Oil) 1 Each Capsule 1 Each PO DAILY I have reviewed the current psychotropics carefully including drug interactions. Risk benefit ratio favors no change other than as noted in my dictated progress note. Diagnosis: Problems: (1) Dehydration (2) Hypotension (3) Anxiety disorder (4) Impulse control disorder (5) Vascular dementia with depressed mood (6) Vascular dementia with delusions (7) Alzheimer's dementia (8) Vascular dementia with behavioral disturbance (9) Major neurocognitive disorder ZACK FERREIRA MD Sep 19, 2018 22:34
[2018-09-19 22:35] VITALS: BP 114/71
[2018-09-20 05:40] VITALS: BP 148/98
--- NOTE | 2018-09-20 06:49 | PN ---
DATE: 09/18/2018 PSYCHIATRIC PROGRESS NOTE This late entry 09/18/2018, covers elements not covered in my initial note. SUBJECTIVE: I met with the patient in the evening. Discussed with nursing staff. Overall, the patient remains confused. His diarrhea due to Clostridium difficile seems to be improving and he has not been aggressive. REVIEW OF SYSTEMS: No CV, , pulmonary, eye system symptoms on review. Reliability poor. MENTAL STATUS EXAM: Oriented to himself. Insight, judgment, recent and remote memory, attention, concentration, fund of knowledge poor, consistent with his diagnosis mentioned in my initial note. PLAN: No change from initial note. MAN Jaime FERREIRA MD DR: JE/carter JOB#: [id number] / [id number]
[2018-09-20 08:09] LABS: HEMATOCRIT 38.6 % (39.0-53.0); HEMOGLOBIN 13.1 g/dL (13.0-17.5); RED BLOOD COUNT 4.41 x10^6/uL (4.30-5.70); RED CELL DISTRIBUTION WIDTH 13.1 % (11.5-14.5); WHITE BLOOD COUNT 16.6 x10^3/uL (4.0-11.0)
[2018-09-20 08:14] LABS: CALCIUM 9.5 mg/dL (8.5-10.1); CREATININE 1.9 mg/dL (0.7-1.3); GFR 35.1; POTASSIUM 5.2 mmol/L (3.5-5.1)
[2018-09-20] MEDS: OMEGA-3 FATTY ACIDS/FISH OIL 1,000 MG CAPSULE. PO SCH (09:00)
[2018-09-20] MEDS: NYSTATIN TOPICAL POWDER 15GM BOTTLE. TP SCH ×2 (09:57→21:00)
[2018-09-20] MEDS: VITS A & D/LANOLIN TOPICAL OINTMENT 56GM TUBE. TP SCH ×3 (09:57→21:00)
[2018-09-20] MEDS: LACTOBACILLUS RHAMNOSUS GG 1 CAPSULE. PO SCH ×2 (09:58→21:00)
[2018-09-20] MEDS: amLODIPine BESYLATE 5 MG TABLET PO SCH (09:58)
[2018-09-20] MEDS: CHOLECALCIFEROL (VITAMIN D3) 1,000 UNIT TABLET PO SCH (10:00)
[2018-09-20] MEDS: FLUCONAZOLE 100 MG TABLET. PO SCH (10:01)
[2018-09-20] MEDS: VANCOMYCIN 125 MG/2.5 ML ORAL SOLUTION. PO SCH ×4 (10:01→21:02)
[2018-09-20] MEDS: FAMOTIDINE 20 MG TABLET PO SCH (10:01)
[2018-09-20 10:48] VITALS: BP 124/85
--- NOTE | 2018-09-20 13:05 | RAD ---
Chest radiograph 09/20/2018 9:40 AM INDICATION: Shortness of air COMPARISON: September 14, 2018 TECHNIQUE: Portable upright frontal view of the chest is provided. FINDINGS: The cardiomediastinal silhouette is within normal limits. Low lung volumes. There are no pleural effusions. There is no pulmonary vascular congestion. There is no pneumothorax. The lungs are clear. No significant osseous abnormality is identified. IMPRESSION: Similar appearance of the chest compared to prior examination. Electronically signed by: Vanita Ochoa MD (09/20/2018 1:02 PM) [id number]
[2018-09-20] MEDS ORDERED: PIP/TAZO PER PHARMACY MC PRN (15:00)
[2018-09-20 15:06] VITALS: BP 121/77
[2018-09-20] MEDS: IV DEXTROSE 5 %-0.45 % NACL 1,000 ML IV SCH (15:47)
[2018-09-20] MEDS ORDERED: VANCOMYCIN 2 GM in IV NORMAL SALINE 500ML 500 ML IV ONE (16:00)
--- NOTE | 2018-09-20 16:04 | NUR ---
Order Verified Yes Consent signed Yes Previous PICC placement No Past Medical/Surgical history and current diagnosis reviewed Yes Patient Medical /Surgical History Related to PICC line placement None Special considerations for PICC line placement None PICC placement indication Poor peripheral intravenous access Name of PICC Nurse Janet Henao RN
--- NOTE | 2018-09-20 16:06 | NUR ---
Procedure: Following complete explanation of the PICC procedure including the indications, risks, and potential complications, informed consent was obtained. The possibility for infection was discussed along with signs, symptoms, and prevention. All the patient's 's questions were answered. IV Device Protocol was used. Written and verbal patient education was provided. Hand hygiene performed. Standardized central line checklist was utilized. The patient was placed in the supine position, the right arm was prepped with chlorhexidine and patient draped with maximum sterile barrier, with the assist of the holding the arm under the drape due pt confused, wearing cap and mask 1 mL 1% lidocaine was infiltrated into the skin to provide local anesthesia. A thorough assessment of the right upper extremity completed. Using real-time ultrasound guidance and standardized micro puncture set, the brachial vein was punctured and a peel away sheath was placed using the modified Seldinger technique. A tip location device was used to ensure adequate catheter placement. The catheter was secured using a securement device and an antimicrobial patch was applied directly on the insertion site followed by a transparent dressing. The port withdrew blood and flushed without resistance. Patient tolerated the procedure without apparent complication(s). A single Lumen Power PICC placement successful and uncomplicated. Placement verified by EKG tip confirmation system with green p wave and paulo appearing. Tip located in the ACJ per 3CG Complications: None
[2018-09-20] MEDS: PIPERACILLIN/TAZOBACTAM 3.375 GM in IV NORMAL SALINE 50ML 50 ML IV SCH (18:45)
[2018-09-20] MEDS: VANCOMYCIN PER PHARMACY MC PRN (19:19)
--- NOTE | 2018-09-20 19:19 | NUR ---
Pharmacy Vancomycin Dosing Note S:Consulted to monitor and dose vancomycin started 09/20/18. O:INDERJIT PIERRE is a 73 year old M with Sepsis, . Height: 6 feet, 0 inches Weight: 85.793444 kg [facility] Body Weight: Adjusted Body Weight: Dosing Weight: Actual Other Antibiotics: ZOSYN 3.375GM Q6HRS LABS: Last BUN: 28 Last Creatinine: 1.9 Creatinine Clearance: Last WBC: 16.6 Last Procalcitonin: Tmax (past 24 hours): Microbiology: I/O: Drug Levels: Last level: on at Last dose given 09/20/18 at 1600 Vancomycin Dosing: Loading Dose: 2000 mg x1 Dosing Weight: Actual Target Trough: 15-20 A: Based on: P: 1. Begin Vancomycin 1250 mg IV q24h 2. Follow up Trough level on 09/22/18 at 1530 3. Pharmacy will continue to monitor, follow and adjust therapy as needed. [facility], 09/20/18 1920
[2018-09-20 19:20] VITALS: BP 132/78
[2018-09-20] MEDS: DIVALPROEX 125 MG CAP.SPRINK PO SCH (21:02)
--- NOTE | 2018-09-20 22:27 | PDOC ---
Exam Note: Maurice Note: Please also refer to the separate dictated note~for this date of service dictated separately.~Patient seen individually. Discussed the patient with Nursing staff reviewed the chart.~Reviewed interim history and current functioning. Reviewed vital signs,~Labs/ Radiology~and current medications noted below. Continue current treatment with the changes noted in the dictated addendum note Assessment: Vital Signs: Vital Signs Date Time Temp Pulse Resp B/P (MAP) Pulse Ox O2 Delivery O2 Flow Rate FiO2 09/20/18 20:01 Room Air 09/20/18 19:20 99.2 100 18 132/78 (96) 96 I&O Intake and Output 09/20/18 07:00 Intake Total 540 ml Balance 540 ml Intake Oral 540 ml # Voids 5 Labs: Laboratory Tests Test 09/20/18 07:59 09/20/18 11:25 White Blood Count 16.6 x10^3/uL (4.0-11.0) #H Red Blood Count 4.41 x10^6/uL (4.30-5.70) Hemoglobin 13.1 g/dL (13.0-17.5) Hematocrit 38.6 % (39.0-53.0) L Mean Corpuscular Volume 88 fL (79-100) Mean Corpuscular Hemoglobin 30 pg (25-35) Mean Corpuscular Hemoglobin Concent 34 g/dL (31-37) Red Cell Distribution Width 13.1 % (11.5-14.5) Platelet Count 593 x10^3/uL (140-400) H Sodium Level 139 mmol/L (136-145) Potassium Level 5.2 mmol/L (3.5-5.1) H Chloride Level 103 mmol/L (98-107) Carbon Dioxide Level 27 mmol/L (21-32) Anion Gap 9 (6-14) Blood Urea Nitrogen 28 mg/dL (8-26) H Creatinine 1.9 mg/dL (0.7-1.3) H Estimated GFR (Cockcroft-Gault) 35.1 Glucose Level 99 mg/dL (70-99) Calcium Level 9.5 mg/dL (8.5-10.1) Lactic Acid Level 1.4 mmol/L (0.4-2.0) Current Medications: Meds: Current Medications Haloperidol Lactate (Haldol) 5 mg PRN Q4HRS PRN IM ANXIETY / AGITATION Last administered on 09/15/18 23:20; Start 09/15/18 at 23:15 Potassium Chloride/Dextrose/ Sod Cl 1,000 ml @ 100 mls/hr Q10H IV Last administered on 09/17/18 19:49; Start 09/15/18 at 23:45; Stop 09/18/18 at 07:14; Status DC Vancomycin HCl (Vancomycin Oral Solution) 125 mg [id number] PO Last administered on 09/20/18 21:02; Start 09/16/18 at 09:00 Fluconazole (Diflucan) 100 mg DAILY PO Last administered on 09/20/18 10:01; Start 09/16/18 at 09:00 Multi-Ingredient Ointment (Analgesic Landrum) 1 geraldo PRN QID PRN TP MUSCLE PAIN; Start 09/16/18 at 01:30 Divalproex Sodium (Depakote Sprinkles) 750 mg QHS PO Last administered on 21:02; Start 09/16/18 at 21:00 Fish Oil (Fish Oil) 1,000 mg DAILY PO Last administered on 09/19/18 08:35; Start 09/16/18 at 09:00 Nystatin (Nystop) 1 geraldo BID TP Last administered on 09/20/18 21:00; Start 09/16 at 09:00 Lactobacillus Rhamnosus (Culturelle) 1 cap BID PO Last administered on 21:00; Start 09/16/18 at 09:00 Magnesium Hydroxide (Milk Of Magnesia) 2,400 mg PRN QHS PRN PO CONSTIPATION; Start 09/16/18 at 01:45 Pantoprazole Sodium (Protonix) 40 mg DAILYAC PO ; Start 09/16/18 at 07:30; Stop 09/16/18 at 09:32; Status DC Acetaminophen (Tylenol) 650 mg PRN Q6HRS PRN PO PAIN / TEMP Last administered on 09/19/18 21:56; Start 09/16/18 at 01:45 Olanzapine (ZyPREXA ZYDIS) 2.5 mg PRN Q2HR PRN PO ANXIETY / AGITATION Last administered on 09/20/18 14:10; Start 09/16/18 at 01:45 Artificial Tears (Artificial Tears) 1 drop PRN TID PRN OU DRY EYE; Start at 01:45 Amlodipine Besylate (Norvasc) 5 mg DAILY PO Last administered on 09/20/18 09: 58; Start 09/16/18 at 09:00 Furosemide (Lasix) 40 mg DAILY PO Last administered on 09/17/18 09:25; Start at 09:00; Stop 09/17/18 at 11:45; Status DC Trazodone HCl (Desyrel) 50 mg PRN QHS PRN PO INSOMNIA, MAY REPEAT X1 Last administered on 09/18/18 20:21; Start 09/16/18 at 01:45 Vitamin A/Vitamin D (Vitamin A & D Ointment) 1 geraldo TID TP Last administered on 09/20/18 21:00; Start 09/16/18 at 09:00 Vitamin D (Vitamin D3) 500 unit DAILY PO Last administered on 09/20/18 10:00; Start 09/16/18 at 09:00 Al Hydroxide/Mg Hydroxide (Mylanta Plus Xs) 15 ml PRN QID PRN PO DYSPEPSIA; Start 09/16/18 at 01:45 Famotidine (Pepcid) 20 mg DAILY PO Last administered on 09/20/18 10:01; Start 09/17/18 at 09:00 Dextrose/Sodium Chloride 1,000 ml @ 100 mls/hr Q10H IV Last administered on 05/29at 15:47; Start 09/20/18 at 15:00 Vancomycin HCl (Vanco Per Pharmacy) 1 each PRN DAILY PRN MC SEE COMMENTS Last administered on 09/20/18at 19:19; Start 09/20/18 at 15:00 Piperacillin Sod/ Tazobactam Sod (Zosyn Per Pharmacy) 1 each PRN DAILY PRN MC SEE COMMENTS; Start 09/20/18 at 15:00 Piperacillin Sod/ Tazobactam Sod 3.375 gm/Sodium Chloride 50 ml @ 100 mls/hr Q6HRS IV Last administered on 09/20/18 18:45; Start 09/20/18 at 18:00 Vancomycin HCl 2 gm/Sodium Chloride 500 ml @ 250 mls/hr 1X ONCE IV Last administered on 09/20/18 16:00; Start 09/20/18 at 16:00; Stop 09/20/18 at 17:59 ; Status DC Vancomycin HCl 1.25 gm/Sodium Chloride 250 ml @ 167 mls/hr Q24H IV ; Start at 16:00 Vancomycin HCl (Vancomycin Trough Level) 1 each 1X ONCE MC ; Start 09/22/18 at 15:30; Stop 09/22/18 at 15:31 Active Scripts Active Reported Trazodone Hcl 50 Mg Tablet 50 Mg PO PRN QHS PRN Norvasc (Amlodipine Besylate) 5 Mg Tablet 5 Mg PO DAILY Vitamin A & D Ointment (Vits A & D/White Pet/Lanolin) 56.7 Gm Oint...g. 1 Geraldo TP TID Artificial Tears (Polyvinyl Alcohol) 15 Ml Drops 1 Drop OP PRN TID PRN Zyprexa Zydis (Olanzapine) 5 Mg Tab.rapdis 2.5 Mg PO PRN Q2HR PRN Nystatin 15 Gm Powder 1 Geraldo TP BID Lasix (Furosemide) 40 Mg Tablet 40 Mg PO DAILY Diflucan (Fluconazole) 100 Mg Tablet 100 Mg PO DAILY Depakote Sprinkle (Divalproex Sodium) 125 Mg Cap.sprink 750 Mg PO QHS Acidophilus (Lactobacillus Acidophilus) 1 Each Capsule 1 Each PO BID 7 Days Analgesic Landrum (Methyl Salicylate/Menthol) 28 Gm Oint...g. 1 Geraldo TP QIDPRN PRN Milk Of Magnesia (Magnesium Hydroxide) 2,400 Mg/10 Ml Oral.susp 2,400 Mg PO HS PRN Advanced Antacid Liquid (Mag Hydrox/Al Hydrox/Simeth) 355 Ml Oral.susp 15 Ml PO QIDPRN PRN Tylenol (Acetaminophen) 325 Mg Tablet 650 Mg PO PRN Q6HRS PRN Vitamin D (Cholecalciferol (Vitamin D3)) 400 Unit/1 Ml Drops 500 Unit PO DAILY Protonix (Pantoprazole Sodium) 40 Mg Tablet.dr 40 Mg PO DAILY Fish Oil 1,200 Mg Softgel ([place]-3S/Dha/Epa/Fish Oil) 1 Each Capsule 1 Each PO DAILY I have reviewed the current psychotropics carefully including drug interactions. Risk benefit ratio favors no change other than as noted in my dictated progress note. Diagnosis: Problems: (1) Dehydration (2) Hypotension (3) Anxiety disorder (4) Impulse control disorder (5) Vascular dementia with depressed mood (6) Vascular dementia with delusions (7) Alzheimer's dementia (8) Vascular dementia with behavioral disturbance (9) Major neurocognitive disorder ZACK FERREIRA MD Sep 20, 2018 22:26
[2018-09-20 22:53] VITALS: BP 136/71
--- NOTE | 2018-09-20 23:51 | PN ---
DATE: 09/20/2018 SUBJECTIVE: The patient is very lethargic and spiked his temperature up to 101.5. His lab work showed his white cell count has dramatically risen to 16,600. His chemistry showed his BUN and creatinine has also risen to 28 and 1.9, potassium is up to 5.2. Chest x-ray showed that he has probably some obliteration of the left costophrenic angle, possible left lower lobe infiltrate. PHYSICAL EXAMINATION: GENERAL: When I examined him, he looked pale, but no jaundice, cyanosis, or thyromegaly. No jugular venous distension. No lower limb edema. VITAL SIGNS: His heart rate was 101, blood pressure 124/85, temperature was 98.7, respiratory rate was 20 and oxygen saturation was 94%. HEAD, EYES, EARS, NOSE AND THROAT: Showed normocephalic, atraumatic. NECK: Supple. HEART: Showed normal first and second heart sounds. No gallop, rub or murmur. CHEST: Clear to auscultation. No crepitation or rhonchi. ABDOMEN: Distended, soft, nontender. NEUROLOGIC: He was very lethargic, but arousable. All his cranial nerves are intact. He moves extremities without difficulty, although he is mostly bedbound. His intake and output are incompletely recorded. LABORATORY DATA: His lab work this morning showed a white cell count of 16,600, hemoglobin 13, hematocrit 39, MCV 88 and platelet count 593,000. His chemistry showed a serum sodium 139, potassium 5.2, chloride 103, bicarbonate 27, anion gap of 9, BUN 28, creatinine 1.9. Estimated GFR was 35 mL per minute. His glucose was 99, calcium was 9.5. ASSESSMENT AND PLAN: 1. Fever, leukocytosis, possible left lower lobe infiltrate. Plan is to arrange for a PICC line. We will continue with oral vancomycin for C. diff colitis. We will do blood cultures and urine culture and we will start him on IV vancomycin and Zosyn as the pharmacy recommendation once the PICC line was placed. Other problems include Clostridium difficile colitis and oral vancomycin. 2. Chronic kidney injury, worsening. His creatinine up from 1.5 to 1.9. 3. Other medical problems include hypertension, hyperlipidemia, gastroesophageal reflux disease. KIP LEDESMA MD DR: BULMARO/carter JOB#: [id number] / [id number]
[2018-09-21] MEDS: PIPERACILLIN/TAZOBACTAM 3.375 GM in IV NORMAL SALINE 50ML 50 ML IV SCH ×4 (00:12→18:23)
[2018-09-21] MEDS: IV DEXTROSE 5 %-0.45 % NACL 1,000 ML IV SCH ×3 (04:40→21:00)
[2018-09-21] MEDS: ACETAMINOPHEN 325 MG TABLET PO PRN ×2 (06:18→21:18)
[2018-09-21 06:42] LABS: HEMATOCRIT 34.3 % (39.0-53.0); HEMOGLOBIN 11.5 g/dL (13.0-17.5); RED BLOOD COUNT 3.88 x10^6/uL (4.30-5.70); RED CELL DISTRIBUTION WIDTH 13.3 % (11.5-14.5); WHITE BLOOD COUNT 15.2 x10^3/uL (4.0-11.0)
[2018-09-21 07:01] LABS: ALBUMIN 2.4 g/dL (3.4-5.0); ALBUMIN/GLOBULIN RATIO 0.5 (1.0-1.7); CALCIUM 8.8 mg/dL (8.5-10.1); CREATININE 1.6 mg/dL (0.7-1.3); GFR 42.8; POTASSIUM 3.9 mmol/L (3.5-5.1); TOTAL BILIRUBIN 0.4 mg/dL (0.2-1.0); TOTAL PROTEIN 6.9 g/dL (6.4-8.2)
[2018-09-21] MEDS: amLODIPine BESYLATE 5 MG TABLET PO SCH (08:41)
[2018-09-21] MEDS: OMEGA-3 FATTY ACIDS/FISH OIL 1,000 MG CAPSULE. PO SCH (08:41)
[2018-09-21] MEDS: LACTOBACILLUS RHAMNOSUS GG 1 CAPSULE. PO SCH ×2 (08:41→21:18)
[2018-09-21] MEDS: FLUCONAZOLE 100 MG TABLET. PO SCH (08:41)
[2018-09-21] MEDS: FAMOTIDINE 20 MG TABLET PO SCH (08:41)
[2018-09-21] MEDS: CHOLECALCIFEROL (VITAMIN D3) 1,000 UNIT TABLET PO SCH (08:41)
[2018-09-21] MEDS: NYSTATIN TOPICAL POWDER 15GM BOTTLE. TP SCH ×2 (08:42→21:00)
[2018-09-21] MEDS: VANCOMYCIN 125 MG/2.5 ML ORAL SOLUTION. PO SCH ×4 (08:42→21:20)
[2018-09-21] MEDS: VITS A & D/LANOLIN TOPICAL OINTMENT 56GM TUBE. TP SCH ×3 (08:43→21:00)
[2018-09-21 09:44] VITALS: BP 167/81
[2018-09-21 15:00] VITALS: BP 149/83
--- NOTE | 2018-09-21 15:23 | PN ---
DATE: 09/20/2018 This note covers elements not covered in my initial note of 09/20/2018. SUBJECTIVE: Per nursing report, the patient remains confused, but not aggressive. He is stable with respect to Clostridium difficile. REVIEW OF SYSTEMS: Ambulation impaired, in wheelchair. No CV, , pulmonary, eye system symptoms on review. Reliability poor. MENTAL STATUS EXAM: Oriented to himself. Insight, judgment, recent and remote memory, attention, concentration, fund of knowledge poor, consistent with his diagnosis mentioned in my initial note. PLAN: No change from initial note. The patient is being transitioned to senior living since behaviorally he appears stable. He does not need to go to the [facility]. MAN Jaime FERREIRA MD DR: JE/carter JOB#: [id number] / [id number]
--- NOTE | 2018-09-21 15:23 | PN ---
DATE: 09/19/2018 This late entry for 09/19/2018 covers elements not covered in my initial note. SUBJECTIVE: I met with the patient in the evening. Per nursing report, the patient is being stabilized for his C. diff colitis and remains confused, not aggressive. I met with him in his room. REVIEW OF SYSTEMS: Ambulation impaired. No CV, , pulmonary, eye, ENT system symptoms on review. Reliability poor. MENTAL STATUS EXAM: Oriented to himself. Insight, judgment, recent and remote memory, attention, concentration, fund of knowledge poor, consistent with his diagnosis mentioned in my initial note. PLAN: No change from initial note. MAN Jaime FERREIRA MD DR: JE/carter JOB#: [id number] / [id number]
[2018-09-21] MEDS ORDERED: VANCOMYCIN 1.25 GM in IV NORMAL SALINE 250ML 250 ML IV SCH (16:00)
[2018-09-21 19:44] VITALS: BP 147/72
[2018-09-21] MEDS: DIVALPROEX 125 MG CAP.SPRINK PO SCH (21:18)
[2018-09-21 22:28] VITALS: BP 159/85
--- NOTE | 2018-09-22 00:35 | PN ---
DATE: SUBJECTIVE: A 73-year-old gentleman. He is initially from the [facility], markedly confused and at times apparently belligerent to the nursing staff; however, he seems to be very sedate this morning. The patient has been spiking a temperature at times. He has a left lower lobe infiltrate, some clots, putting a PICC line in and continue him on vancomycin and Zosyn. He has basically no complaints presently. PHYSICAL EXAMINATION: VITAL SIGNS: Blood pressure 149/80, respiratory rate 18, pulse 94, afebrile. GENERAL: The patient is arousable, but confused as indicated. HEENT: The patient is atraumatic, normocephalic. NECK: The patient's neck was unremarkable. LUNGS: Diminished throughout, poor movement of air. CARDIOVASCULAR: Regular sinus rhythm, S1, S2, without murmur, rub, thrill, or extra heart sound. ABDOMEN: Soft, but was definitely distended, nontender, no hepatosplenomegaly. No rebounding. EXTREMITIES: No clubbing, cyanosis. Trace edema noted. NEUROLOGIC: As noted, very sedate. The patient I believe he is being made a no code and possibly hospice. LABORATORY DATA: White count 15, hemoglobin and hematocrit 11 and 43. The patient's sodium and potassium 140 and 3.9, BUN and creatinine, creatinine down to 1.6 from as high as 1.9 and albumin low at 2.4. IMPRESSION: Clostridium difficile colitis, on oral vancomycin; possible left lower lobe infiltrate, chronic kidney disease, improved 1.5, down from 1.9; hypertension essential, hyperlipidemia, gastroesophageal reflux disease, severe dementia, Alzheimer type with marked confusion. PLAN: Continue on present drug regimen. Dr. Diaz, psychiatrist also seen the patient as well. LATA MORALES MD DR: FANTASMA/carter JOB#: [id number] / [id number]
[2018-09-22] MEDS: PIPERACILLIN/TAZOBACTAM 3.375 GM in IV NORMAL SALINE 50ML 50 ML IV SCH ×5 (01:18→23:14)
[2018-09-22] MEDS: traZODone 50 MG TABLET. PO PRN ×2 (01:18→19:22)
[2018-09-22 01:41] VITALS: BP 131/79
[2018-09-22 05:15] VITALS: BP 148/89
[2018-09-22] MEDS: IV DEXTROSE 5 %-0.45 % NACL 1,000 ML IV SCH ×2 (06:37→17:14)
[2018-09-22] MEDS: CHOLECALCIFEROL (VITAMIN D3) 1,000 UNIT TABLET PO SCH (08:19)
[2018-09-22] MEDS: VANCOMYCIN 125 MG/2.5 ML ORAL SOLUTION. PO SCH ×4 (08:19→19:23)
[2018-09-22] MEDS: LACTOBACILLUS RHAMNOSUS GG 1 CAPSULE. PO SCH ×2 (08:19→19:22)
[2018-09-22] MEDS: FAMOTIDINE 20 MG TABLET PO SCH (08:19)
[2018-09-22] MEDS: OMEGA-3 FATTY ACIDS/FISH OIL 1,000 MG CAPSULE. PO SCH (08:20)
[2018-09-22] MEDS: FLUCONAZOLE 100 MG TABLET. PO SCH (08:20)
[2018-09-22] MEDS: VITS A & D/LANOLIN TOPICAL OINTMENT 56GM TUBE. TP SCH ×3 (08:20→19:23)
[2018-09-22] MEDS: NYSTATIN TOPICAL POWDER 15GM BOTTLE. TP SCH ×2 (08:20→19:23)
[2018-09-22] MEDS: amLODIPine BESYLATE 5 MG TABLET PO SCH (08:20)
[2018-09-22 08:44] LABS: BASO # 0.1 x10^3/uL (0.0-0.2); BASO % 1 % (0-3); EOS # 0.2 x10^3/uL (0.0-0.7); EOS % 1 % (0-3); HEMATOCRIT 31.7 % (39.0-53.0); HEMOGLOBIN 10.5 g/dL (13.0-17.5); LYMPH # 1.6 x10^3/uL (1.0-4.8); LYMPH % 12 % (24-48); MEAN CORPUSCULAR HEMOGLOBIN 30 pg (25-35); MEAN CORPUSCULAR HGB CONC 33 g/dL (31-37); MEAN CORPUSCULAR VOLUME 89 fL (79-100); MONO # 1.4 x10^3/uL (0.0-1.1); MONO % 11 % (0-9); NEUT # 9.7 x10^3uL (1.8-7.7); NEUT % 75 % (31-73); PLATELET COUNT 477 x10^3/uL (140-400); RED BLOOD COUNT 3.56 x10^6/uL (4.30-5.70); RED CELL DISTRIBUTION WIDTH 13.1 % (11.5-14.5); WHITE BLOOD COUNT 12.9 x10^3/uL (4.0-11.0)
[2018-09-22 08:55] LABS: CALCIUM 7.8 mg/dL (8.5-10.1); CREATININE 1.4 mg/dL (0.7-1.3); POTASSIUM 3.6 mmol/L (3.5-5.1)
[2018-09-22 09:47] LABS: % BANDS 9 % (0-9); % BASOS 1 % (0-3); % EOS 2 % (0-5); % LYMPHS 12 % (24-48); % MONOS 5 % (0-10); % SEGS 71 % (35-66); PLT ESTIMATE INCREASED (ADEQUATE)
[2018-09-22 15:57] VITALS: BP 131/86
[2018-09-22] MEDS: VANCOMYCIN PER PHARMACY MC PRN (17:11)
[2018-09-22] MEDS: VANCOMYCIN 1.25 GM in IV NORMAL SALINE 250ML 250 ML IV SCH (17:14)
--- NOTE | 2018-09-22 17:14 | NUR ---
Pharmacy Vancomycin Dosing Note S:Consulted to monitor and dose vancomycin started 09/20/18. O:INDERJIT PIERRE is a 73 year old M with Sepsis, . Height: 6 feet, 0 inches Weight: 86.861587 kg [place] Body Weight: 77.60 Adjusted Body Weight: 80.56 Dosing Weight: Actual Other Antibiotics: ZOSYN 3.375GM Q6HRS LABS: Last BUN: 17 Last Creatinine: 1.4 Creatinine Clearance: 55.48 Last WBC: 12.9 Drug Levels: Last Trough level: 9.0 on 09/22/18 at 1530 Last dose given 09/22/18 at 1700 Vancomycin Dosing: Loading Dose: 2000 mg x1 Dosing Weight: Actual Target Trough: 15-20 A: Based on: Trough and improved renal function P: 1. Begin Vancomycin 1250 mg IV q12h 2. Follow up Trough level on 09/24/18 at 0430 3. Pharmacy will continue to monitor, follow and adjust therapy as needed. LAKISHA PATEL, 09/22/18 [id number]
[2018-09-22] MEDS ORDERED: KETOROLAC 15 MG/ML VIAL. IV PRN (17:15)
[2018-09-22 19:20] VITALS: BP 144/87
[2018-09-22] MEDS: DIVALPROEX 125 MG CAP.SPRINK PO SCH (19:22)
--- NOTE | 2018-09-22 21:53 | PN ---
DATE: 09/22/2018 SUBJECTIVE: A 73-year-old male in with C. difficile colitis as one of his diagnoses, also psychiatric problems. He is very sedate. He has a left lower lobe infiltrate. He has been on vancomycin and Zosyn. They were going to put a PICC line and is not quite clear if they did. White count has come down to 12.9, hemoglobin 10.5 and hematocrit 31. OBJECTIVE: VITAL SIGNS: Blood pressure 148/89, respiratory rate 22, pulse 100, afebrile. GENERAL: The patient is alert and oriented. Blood cultures show no growth. Urine straight catheterization, preliminary report shows some type of streptococcus species. The patient has decreased bowel movements to 1 a day, voiding and otherwise basically unresponsive. Blood pressure 148/90, respiratory rate 22, pulse 100, afebrile. LUNGS: Diminished throughout, poor movement of air. CARDIOVASCULAR: Irregularly irregular rhythm. ABDOMEN: Protuberant, nontender. EXTREMITIES: No clubbing, cyanosis, or edema. Continue on present drug regimen for now and make further evaluation and possible replacement back to the [facility] nursing facility, leave that at the hands of Dr. Khalil. ASSESSMENT: C. difficile colitis, on oral vancomycin; possible left lower lobe chronic kidney disease, improved; essential hypertension; hyperlipidemia; gastroesophageal reflux disease; severe dementia; Alzheimer type with marked confusion. LATA MORALES MD DR: FANTASMA/carter JOB#: [id number] / [id number]
[2018-09-23] MEDS: IV DEXTROSE 5 %-0.45 % NACL 1,000 ML IV SCH ×2 (04:19→13:00)
[2018-09-23] MEDS: VANCOMYCIN 1.25 GM in IV NORMAL SALINE 250ML 250 ML IV SCH (04:20)
[2018-09-23 05:00] VITALS: BP 143/89
[2018-09-23] MEDS: PIPERACILLIN/TAZOBACTAM 3.375 GM in IV NORMAL SALINE 50ML 50 ML IV SCH ×2 (06:06→11:54)
[2018-09-23 07:00] VITALS: BP 138/84
[2018-09-23] MEDS: FAMOTIDINE 20 MG TABLET PO SCH (07:53)
[2018-09-23] MEDS: LACTOBACILLUS RHAMNOSUS GG 1 CAPSULE. PO SCH (07:53)
[2018-09-23] MEDS: CHOLECALCIFEROL (VITAMIN D3) 1,000 UNIT TABLET PO SCH (07:53)
[2018-09-23] MEDS: FLUCONAZOLE 100 MG TABLET. PO SCH (07:53)
[2018-09-23] MEDS: amLODIPine BESYLATE 5 MG TABLET PO SCH (07:54)
[2018-09-23] MEDS: NYSTATIN TOPICAL POWDER 15GM BOTTLE. TP SCH (07:55)
[2018-09-23] MEDS: VITS A & D/LANOLIN TOPICAL OINTMENT 56GM TUBE. TP SCH (07:55)
[2018-09-23] MEDS: VANCOMYCIN 125 MG/2.5 ML ORAL SOLUTION. PO SCH ×2 (07:55→11:54)
[2018-09-23] MEDS: OMEGA-3 FATTY ACIDS/FISH OIL 1,000 MG CAPSULE. PO SCH (08:03)
[2018-09-23 10:25] VITALS: BP 138/84
[2018-09-23] MEDS ORDERED: VANC125C3 PO (14:13)
[2018-09-23] MEDS ORDERED: AMOX500C PO (14:13)
[2018-09-23] MEDS ORDERED: LORA-254 PO (14:13)
[2018-09-23 15:06] VITALS: BP 145/86
--- NOTE | 2018-09-23 15:21 | DS ---
DATE OF DISCHARGE: 09/23/2018 HOSPITAL COURSE: The patient is a 73-year-old male patient, who was originally admitted to [facility] and has been in and out of the [address] [place] [address] initially for sepsis and community-acquired pneumonia together with acute renal injury and then he developed severe diarrhea and again acute kidney injury and was diagnosed with C. diff colitis, which he was on oral vancomycin and was responding very well and then he developed sepsis. His white cell count has dramatically risen. His kidney function has worsened. We did start him on IV fluid together with broaden his IV antibiotic coverage with vancomycin and Zosyn and although, his white cell count is trending down. His kidney function improved. He continued to be extremely lethargic, encephalopathic and occasionally very combative and after a lengthy discussion with his family, a decision was made to discharge him home on hospice. His urine culture has grown more than 100,000 colony forming units per mL of Enterococcus faecalis that is vancomycin sensitive. MEDICATIONS: He was discharged to continue on amoxicillin for his UTI and oral vancomycin for his C. diff colitis. PHYSICAL EXAMINATION: GENERAL: When I saw him this afternoon, he looked pale, but no jaundice, cyanosis, or thyromegaly. No jugular venous distension. No lower limb edema. VITAL SIGNS: His heart rate was 83, blood pressure 138/84, temperature was 98.2, respiratory rate 20, and oxygen saturation was 97%. HEAD, EYES, EARS, NOSE AND THROAT: Normocephalic, atraumatic. NECK: Supple. HEART: Showed normal first and second sounds. No gallop, rub or murmur. CHEST: Clear to auscultation. No crepitation or rhonchi. ABDOMEN: Distended, soft, nontender. NEUROLOGIC: He is sleepy, but arousable. He does open his eyes, but normally does not respond verbally. He is mostly bed bound; however, he was able to walk before. His intake was 1770, and no output was recorded. LABORATORY DATA: As of this morning showed his white cell count was 12,900, hemoglobin 10, hematocrit 32, MCV 89 and platelet count ____. His chemistry showed a serum sodium 142, potassium 3.6, chloride 109, bicarbonate 25, anion gap of 8, BUN 17, creatinine 1.4, estimated GFR was 50 mL per minute, his glucose was 92, calcium was 7.8. DISCHARGE MEDICATIONS: He was discharged home on hospice to continue on Roxanol, Ativan, oral vancomycin as well as oral amoxicillin. FINAL DISCHARGE DIAGNOSES: 1. Clostridium difficile colitis, on oral vancomycin. 2. Acute on chronic kidney injury, improving. 3. Other medical problems include hypertension, hyperlipidemia, gastroesophageal reflux disease, and schizophrenia. KIP LEDESMA MD DR: BULMARO/carter JOB#: [id number] / [id number]
--- NOTE | 2018-09-23 16:08 | NUR ---
NURSING NOTE DISCHARGE PT DISCHARGED TO HOME ON HOSPICE VIA EMS AT 1605 ACCOMPANIED BY EMS PERSONNEL. WRITTEN COPY OF CHART SENT WITH EMS. HOSPICE NURSE WILL MEET THE FAMILY AT THE HOUSE AT 1730 TODAY. NO COMPLICATIONS. MARGARET FARMER.
== END 2018-09-23 16:05 | disposition hospice, home (50) | DRG 371 ==
LOC: 1 SOUTH 23:08
PROVIDERS: ADMIT Internal Medicine; ATTEND Internal Medicine
DX: A04.72 Enterocolitis due to Clostridium difficile, not specified as recurrent (principal); E43 Unspecified severe protein-calorie malnutrition; N17.9 Acute kidney failure, unspecified; F01.51 Vascular dementia, unspecified severity, with behavioral disturbance; F02.81 Dementia in other diseases classified elsewhere, unspecified severity, with behavioral disturbance; G93.40 Encephalopathy, unspecified; E78.5 Hyperlipidemia, unspecified; E86.0 Dehydration; F20.9 Schizophrenia, unspecified; F32.9 Major depressive disorder, single episode, unspecified; F41.1 Generalized anxiety disorder; F63.9 Impulse disorder, unspecified; G30.9 Alzheimer's disease, unspecified; I12.9 Hypertensive chronic kidney disease with stage 1 through stage 4 chronic kidney disease, or unspecified chronic kidney disease; K21.9 Gastro-esophageal reflux disease without esophagitis; N18.9 Chronic kidney disease, unspecified; Z87.01 Personal history of pneumonia (recurrent); Z68.25 Body mass index [BMI] 25.0-25.9, adult; I95.9 Hypotension, unspecified
CPT/HCPCS: 36415; 36569; 71045; 80048; 80053; 80202; 83605; 85007; 85025; 85027; 87040; 87086; 87186; 87641; J1630; J1885; J2543; J3370; J7040; J7050